=== PATIENT | male | born 1940 | race Caucasian/White ===

== ENCOUNTER → 2017-01-02 | Outpatient (CLI) | payer MEDICARE, OTHER ==
--- NOTE | 2017-01-02 11:22 | US ---
EXAMINATION TYPE: US carotid duplex BILAT DATE OF EXAM: 01/02/2017 COMPARISON: NONE CLINICAL HISTORY: Z86.73 HX STROKE,I65.22 LT ICA STENOSIS. History of stroke EXAM MEASUREMENTS: RIGHT: Peak Systolic Velocity (PSV) cm/sec ----- Right CCA: 82.9 ----- Right ICA: 92.1 ----- Right ECA: 101.8 ICA/CCA ratio: 1.1 RIGHT: End Diastole cm/sec ----- Right CCA: 26.0 ----- Right ICA: 31.5 ----- Right ECA: 18.9 LEFT: Peak Systolic Velocity (PSV) cm/sec ----- Left CCA: 95.5 ----- Left ICA: 74.4 ----- Left ECA: 126.4 ICA/CCA ratio: 0.8 LEFT: End Diastole cm/sec ----- Left CCA: 27.3 ----- Left ICA: 24.2 ----- Left ECA: 28.0 VERTEBRALS (direction of flow): Right Vertebral: Antegrade Left Vertebral: Antegrade IMPRESSION: Mild plaque bilateral bifurcations. No evidence of significant stenosis Criteria for Assigning % of Stenosis / Diameter reduction (Estimation based on the indirect measurements of the internal carotid artery velocities (ICA PSV). 1. Normal (no stenosis)=ICA PSV < 125 cm/s: ratio < 2.0: ICA EDV<40 cm/s. 2. Less than 50% stenosis=ICA PSV < 125 cm/s: ratio < 2.0: ICA EDV<40 cm/s. 3. 50 to 69% stenosis=ICA PSV of 125 to 230 cm/s: ration 2.0 ? 4.0: ICA EDV 40-100 cm/s. 4. Greater than 70% stenosis to near occlusion= ICA PSV > 230 cm/s: ratio > 4.0: ICA EDV > 100 cm/s. 5. Near occlusion= ICA PSV velocities may be low or undetectable: variable ratio and ICA EDV. 6. Total occlusion=unable to detect flow.
== END | disposition home or self-care (01) ==
LOC: RADUSWWP 10:33
PROVIDERS: ATTEND Psychiatry & Neurology Neurology
DX: I65.23 Occlusion and stenosis of bilateral carotid arteries (principal)
CPT/HCPCS: 93880

== ENCOUNTER 2017-10-13 14:06 | Emergency (ER) | payer MEDICARE, OTHER ==
--- NOTE | 2017-10-13 15:03 | ED ---
General Adult HPI - General Chief complaint: Extremity Injury, Lower Stated complaint: Fall/Leg Pain Time Seen by Provider: 10/13/17 14:51 Source: patient, RN notes reviewed Mode of arrival: ambulatory Limitations: no limitations - History of Present Illness Initial comments: Patient 76-year-old male presented to the emergency room today with chief complaint of increased swelling and redness to the left lower extremity. He doesn't some pain locally. Center is related to a fall that he had a few days ago when he fell forward and then had to crawl over to the wall to help pull himself up. He states he was outside with this fall. Patient does admit to some local tenderness it's worse on the medial aspect of the left lower leg. Patient's at bedside stating that there is some redness and some mild swelling to the right lower abdomen as well. Patient denies any other complaints or symptoms. Denies any increased shortness of breath. Denies any chest pain, back pain, abdominal pain, dysuria, hematuria, headache - Related Data Home Medications Medication Instructions Recorded Confirmed Aspirin 81 mg PO BID 11/06/13 10/13/17 Metoprolol Tartrate [Lopressor] 25 mg PO BID 11/06/13 10/13/17 Multivitamin [Men's Multi-Vitamin] 1 tab PO DAILY 11/06/13 10/13/17 Omeprazole [PriLOSEC] 20 mg PO DAILY 11/06/13 10/13/17 Ubidecarenone [Coq-10] 100 mg PO DAILY 11/06/13 10/13/17 Albuterol Sulfate [Proair Hfa] 1 - 2 puff INHALATION RT-QID PRN 10/13/17 Budesonide [Pulmicort] 0.5 mg INHALATION RT-BID 10/13/17 10/13/17 Felodipine ER [Plendil] 5 mg PO DAILY 10/13/17 10/13/17 Formoterol Fumarate [Perforomist] 20 mcg INHALATION RT-BID 10/13/17 10/13/17 Niacin 500 mg PO DAILY 10/13/17 10/13/17 Vitamin B Complex 1 cap PO DAILY 10/13/17 10/13/17 Previous Rx's Medication Instructions Recorded Cephalexin [Keflex] 500 mg PO Q12HR #20 cap 10/13/17 Allergies Allergy/AdvReac Type Severity Reaction Status Date / Time No Known Allergies Allergy Verified 10/13/17 15:20 Review of Systems ROS Statement: Those systems with pertinent positive or pertinent negative responses have been documented in the HPI. ROS Other: All systems not noted in ROS Statement are negative. Past Medical History Past Medical History: COPD, CVA/TIA, Hyperlipidemia, Hypertension Additional Past Medical History / Comment(s): SMALL AAA. History of Any Multi-Drug Resistant Organisms: None Reported Past Surgical History: Appendectomy, Tonsillectomy Past Anesthesia/Blood Transfusion Reactions: No Reported Reaction Past Psychological History: No Psychological Hx Reported Smoking Status: Former smoker Past Alcohol Use History: None Reported Past Drug Use History: None Reported General Exam - General Exam Comments Initial Comments: General: The patient is awake and alert, in no distress, and does not appear acutely ill. Eye: Pupils are equal, round and reactive to light, extra-ocular movements are intact. No nystagmus. There is normal conjunctiva bilaterally. No signs of icterus. Ears, nose, mouth and throat: There are moist mucous membranes and no oral lesions. Neck: The neck is supple, there is no tenderness or JVD. Cardiovascular: There is a regular rate and rhythm. No murmur, rub or gallop is appreciated. Respiratory: Lungs are clear to auscultation, respirations are non-labored, breath sounds are equal. No wheezes, stridor, rales, or rhonchi. Musculoskeletal: Normal ROM, no tenderness. Strength 5/5. Sensation intact. Pulses equal bilaterally 2+. Neurological: A&O x 3. CN II-XII intact, There are no obvious motor or sensory deficits. Coordination appears grossly intact. Speech is normal. Skin: Redness to the distal medial aspect of the left lower extremity. 2+ pitting. No lymphogenic streaking. There is increased warmth. Mild warmth and redness to the right lower extremity anteriorly. Psychiatric: Cooperative, appropriate mood & affect, normal judgment. Limitations: no limitations Course Vital Signs 10/13/17 14:39 Temperature 98.1 F Pulse Rate 86 Respiratory 20 Rate Blood Pressure 143/72 O2 Sat by Pulse 96 Oximetry Medical Decision Making - Medical Decision Making Patient reexamined at this time shows no signs of distress. Is also negative for any evidence of a DVT. His labs been reviewed and negative white count. Patient has no fever. Case was discussed and seen by physician Dr. Cerda. Patient will be started on antibiotics and advised follow-up family doctor over the next 2 days. Advised return if any symptoms increase worsen. Patient states understanding and is in agreement with the plan. - Lab Data Result diagrams: 10/13/17 15:17 10/13/17 15:17 Lab Results 10/13/17 10/13/17 10/13/17 Range/Units 15:17 15:17 15:17 WBC 4.6 (3.8-10.6) k/uL RBC 4.72 (4.30-5.90) m/uL Hgb 12.5 L (13.0-17.5) gm/dL Hct 38.1 L (39.0-53.0) % MCV 80.9 (80.0-100.0) fL MCH 26.4 (25.0-35.0) pg MCHC 32.7 (31.0-37.0) g/dL RDW 17.4 H (11.5-15.5) % Plt Count 257 (150-450) k/uL Neutrophils % 46 % Lymphocytes % 25 % Monocytes % 12 % Eosinophils % 12 % Basophils % 1 % Neutrophils # 2.1 (1.3-7.7) k/uL Lymphocytes # 1.1 (1.0-4.8) k/uL Monocytes # 0.6 (0-1.0) k/uL Eosinophils # 0.5 (0-0.7) k/uL Basophils # 0.1 (0-0.2) k/uL Hypochromasia Slight Poikilocytosis Slight Anisocytosis Slight Microcytosis Slight Sodium 142 (137-145) mmol/L Potassium 4.5 (3.5-5.1) mmol/L Chloride 106 (98-107) mmol/L Carbon Dioxide 23 (22-30) mmol/L Anion Gap 13 mmol/L BUN 16 (9-20) mg/dL Creatinine 0.67 (0.66-1.25) mg/dL Est GFR (CKD-EPI)AfAm >90 (>60 ml/min/1.73 sqM) Est GFR (CKD-EPI)NonAf >90 (>60 ml/min/1.73 sqM) Glucose 100 H (74-99) mg/dL Calcium 8.7 (8.4-10.2) mg/dL Total Bilirubin 1.1 (0.2-1.3) mg/dL AST 30 (17-59) U/L ALT 30 (21-72) U/L Alkaline Phosphatase 216 H (38-126) U/L NT-Pro-B Natriuret Pep 92 pg/mL Total Protein 7.3 (6.3-8.2) g/dL Albumin 3.9 (3.5-5.0) g/dL Disposition Clinical Impression: Cellulitis Disposition: HOME SELF-CARE Condition: Good Instructions: Cellulitis (ED) Additional Instructions: Please use antibiotic of Keflex and is been sent to pharmacy. Please follow-up with family doctor in the next 2 days of symptoms have not improved. Please return to emergency room if the symptoms increase or worsen or for any other concerns. Prescriptions: Cephalexin [Keflex] 500 mg PO Q12HR #20 cap Is patient prescribed a controlled substance at d/c from ED?: No Referrals: Kiya Espinoza MD [Primary Care Provider] - 1-2 days Time of Disposition: 16:41
[2017-10-13 15:34] LABS: Anisocytosis Slight; Basophils # (A) 0.1 k/uL (0-0.2); Basophils % (A) 1 %; Eosinophils # (A) 0.5 k/uL (0-0.7); Eosinophils % (A) 12 %; HCT 38.1 % (39.0-53.0); HGB 12.5 gm/dL (13.0-17.5); Hypochromasia Slight; Lymphocytes # (A) 1.1 k/uL (1.0-4.8); Lymphocytes % (A) 25 %; MCH 26.4 pg (25.0-35.0); MCHC 32.7 g/dL (31.0-37.0); MCV 80.9 fL (80.0-100.0); Mean Platelet Volume 7.3; Microcytosis Slight; Monocytes # (A) 0.6 k/uL (0-1.0); Monocytes % (A) 12 %; Neutrophils # (A) 2.1 k/uL (1.3-7.7); Neutrophils % (A) 46 %; Platelet Count 257 k/uL (150-450); Poikilocytosis Slight; RBC 4.72 m/uL (4.30-5.90); RDW 17.4 % (11.5-15.5); WBC 4.6 k/uL (3.8-10.6)
[2017-10-13 15:49] LABS: ALT 30 U/L (21-72); AST 30 U/L (17-59); Albumin 3.9 g/dL (3.5-5.0); Alkaline Phosphatase 216 U/L (38-126); Anion Gap 13 mmol/L; Blood Urea Nitrogen 16 mg/dL (9-20); Calcium 8.7 mg/dL (8.4-10.2); Carbon Dioxide 23 mmol/L (22-30); Chloride 106 mmol/L (98-107); Glucose 100 mg/dL (74-99); Potassium 4.5 mmol/L (3.5-5.1); Sodium 142 mmol/L (137-145); Total Bilirubin 1.1 mg/dL (0.2-1.3); Total Protein 7.3 g/dL (6.3-8.2)
--- NOTE | 2017-10-13 15:57 | US ---
EXAMINATION TYPE: US venous doppler duplex LE LT DATE OF EXAM: 10/13/2017 3:48 PM COMPARISON: NONE CLINICAL HISTORY: Pain; EC patient with skin redness bilateral anterior lower legs; patient fell 4 da ys ago SIDE PERFORMED: Left TECHNIQUE: The lower extremity deep venous system is examined utilizing real time linear array sonog alexy with graded compression, doppler sonography and color-flow sonography. VESSELS IMAGED: Common Femoral Vein Deep Femoral Vein Greater Saphenous Vein * Femoral Vein Popliteal Vein Small Saphenous Vein * Proximal Calf Veins (* superficial vessels) Left Leg: Negative for DVT. Edema channels are noted in anterior skin at ankle level. Grayscale, color doppler, spectral doppler imaging performed of the deep veins of the lower extremiti es. There is normal flow, compressibility, vascular waveforms. IMPRESSION: No evident deep venous thrombosis at or above the left knee. Soft tissue swelling. Alfredo elate to exclude cellulitis.
[2017-10-13 17:00] VITALS: BP 149/70; PULSE 83; RESP 18; TEMP 97.3
== END 2017-10-13 16:55 | disposition home or self-care (01) ==
LOC: EC 14:06
DX: L03.116 Cellulitis of left lower limb (principal); L03.115 Cellulitis of right lower limb; R19.03 Right lower quadrant abdominal swelling, mass and lump; M79.662 Pain in left lower leg; J44.9 Chronic obstructive pulmonary disease, unspecified; I10 Essential (primary) hypertension; Z86.73 Personal history of transient ischemic attack (TIA), and cerebral infarction without residual deficits; Z90.49 Acquired absence of other specified parts of digestive tract; Z87.891 Personal history of nicotine dependence; Z79.82 Long term (current) use of aspirin; Z79.51 Long term (current) use of inhaled steroids; Z79.899 Other long term (current) drug therapy; W19.XXXA Unspecified fall, initial encounter
CPT/HCPCS: 36415; 80053; 83880; 85025; 87040; 99284

== ENCOUNTER 2018-01-20 08:57 | Inpatient (IN) | payer MEDICARE, OTHER ==
[2018-01-20] MEDS ORDERED: SODIUM CHLORIDE 0.9% 1,000 ML IV STA (09:21)
--- NOTE | 2018-01-20 09:26 | ED ---
General Adult HPI - General Chief complaint: Weakness Stated complaint: WEAKNESS, POSS DEHYDRATION Source: patient Mode of arrival: EMS Limitations: no limitations - History of Present Illness Initial comments: Dictation was produced using [employer] dictation software. please excuse any grammatical, word or spelling errors. Chief Complaint: 77-year-old male presents with generalized weakness. He has had a recent history of persistent diarrhea and dehydration. History of Present Illness: Patient is a 77-year-old male past medical history of COPD, CVA, TIA, abdominal aortic aneurysm presents with generalized weakness. Patient states that he was recently seen at [facility]. He has been in and out of the emergency room for dehydration. Patient states that early this morning he became weak. He lives at home with his . Patient himself to the ground and was not able to get up. EMS was called by patient's . Patient needed assistance to be placed onto the stretcher. Patient has been having persistent diarrhea ongoing for the last several weeks. He has a scheduled colonoscopy. The ROS documented in this emergency department record has been reviewed and confirmed by me. Those systems with pertinent positive or negative responses have been documented in the HPI. All other systems are other negative and/or noncontributory. - Related Data Home Medications Medication Instructions Recorded Confirmed Aspirin 81 mg PO BID 11/06/13 01/20/18 Metoprolol Tartrate [Lopressor] 25 mg PO BID 11/06/13 01/20/18 Multivitamin [Men's Multi-Vitamin] 1 tab PO DAILY 11/06/13 01/20/18 Omeprazole [PriLOSEC] 20 mg PO DAILY 11/06/13 01/20/18 Ubidecarenone [Coq-10] 100 mg PO DAILY 11/06/13 01/20/18 Albuterol Sulfate [Proair Hfa] 2 puff INHALATION RT-QID PRN 10/13/17 01/20/18 Felodipine ER [Plendil] 5 mg PO DAILY 10/13/17 01/20/18 Niacin 500 mg PO DAILY 10/13/17 01/20/18 Cholecalciferol (Vitamin D3) 2,000 unit PO DAILY 01/20/18 01/20/18 [Vitamin D3] Cholestyramine (with Sugar) 4 gm PO DAILY 01/20/18 01/20/18 [Questran Packet] Glycopyrrolate/Formoterol Fum 2 puff INHALATION RT-BID 01/20/18 01/20/18 [Bevespi Aerosphere Inhaler] Pravastatin Sodium [Pravachol] 40 mg PO HS 01/20/18 01/20/18 Triamterene-Hctz 37.5-25Mg 1 cap PO DAILY 01/20/18 01/20/18 [Dyazide 37.5-25 Capsule] Allergies Allergy/AdvReac Type Severity Reaction Status Date / Time No Known Allergies Allergy Verified 01/20/18 09:09 Review of Systems ROS Statement: Those systems with pertinent positive or pertinent negative responses have been documented in the HPI. ROS Other: All systems not noted in ROS Statement are negative. Past Medical History Past Medical History: COPD, CVA/TIA, Hyperlipidemia, Hypertension Additional Past Medical History / Comment(s): SMALL AAA. History of Any Multi-Drug Resistant Organisms: None Reported Past Surgical History: Appendectomy, Tonsillectomy Past Anesthesia/Blood Transfusion Reactions: No Reported Reaction Past Psychological History: No Psychological Hx Reported Smoking Status: Former smoker Past Alcohol Use History: None Reported Past Drug Use History: None Reported General Exam - General Exam Comments Initial Comments: PHYSICAL EXAM: General Impression: Alert and oriented x3, not in acute distress HEENT: Normocephalic atraumatic, extra-ocular movements intact, pupils equal and reactive to light bilaterally, dry mucous members Cardiovascular: Heart regular rate and rhythm, S1&S2 audible, no murmurs, rubs or gallops Chest: Lungs clear to auscultation bilaterally, no rhonchi, no wheeze, no rales Abdomen: Bowel sounds present, abdomen soft, non-tender, non-distended, no organomegaly Musculoskeletal: Pulses present and equal in all extremities, no peripheral edema Motor: Power 5/5 bilaterally, no focal deficits noted Neurological: CN II-XII grossly intact, no focal motor or sensory deficits noted Skin: Intact with no visualized rashes Psych: Normal affect and mood Limitations: no limitations Course Vital Signs 01/20/18 01/20/18 09:01 11:38 Temperature 97.9 F Pulse Rate 104 H 96 Respiratory 18 16 Rate Blood Pressure 122/56 118/56 O2 Sat by Pulse 98 98 Oximetry Medical Decision Making - Medical Decision Making ED course: Ciy-[id number]-krp male presents with generalized weakness and persistent diarrhea. Vital signs upon arrival shows tachycardia in the 100s. Patient is otherwise hemodynamically stable.Laboratory evaluation obtained. Leukocytosis of 16.6. Hemoglobin of 6.0. Coag panel shows INR 1.7. Known thrombocytopenia. Metabolic panel is unremarkable. Troponin is 0.084. Stool occult blood is positive. Chest x-ray shows no acute processes. At this point patient has GI bleed with likely possible intra-abdominal infection. Patient covered with antibiotics. Pending CT abdomen and pelvis. Patient's abdomen is nontender. Patient given PRBCs for hemoglobin less than 7. Given intravenous fluids for tachycardia. At this point we will hold heparin given that patient has GI bleed. No clear indication for admission patient of FFP or platelets. Patient be admitted with GI consult. EKGs benign - Lab Data Result diagrams: 01/20/18 10:03 01/20/18 10:03 Lab Results 01/20/18 01/20/18 01/20/18 Range/Units 10:00 10:03 10:03 WBC 16.6 H (3.8-10.6) k/uL RBC 2.27 L (4.30-5.90) m/uL Hgb 6.0 L* (13.0-17.5) gm/dL Hct 19.5 L* (39.0-53.0) % MCV 86.1 (80.0-100.0) fL MCH 26.6 (25.0-35.0) pg MCHC 30.9 L (31.0-37.0) g/dL RDW 21.0 H (11.5-15.5) % Plt Count 273 (150-450) k/uL Neutrophils % (Manual) 86 % Lymphocytes % (Manual) 3 % Monocytes % (Manual) 7 % Eosinophils % (Manual) 4 % Basophils % (Manual) 1 % Metamyelocytes % 1 % Neutrophils # (Manual) 14.28 H (1.3-7.7) k/uL Lymphocytes # (Manual) 0.50 L (1.0-4.8) k/uL Monocytes # (Manual) 1.16 H (0-1.0) k/uL Eosinophils # (Manual) 0.66 (0-0.7) k/uL Basophils # (Manual) 0.17 (0-0.2) k/uL Metamyelocytes # (Man) 0.17 H (0) k/uL Nucleated RBCs 0 (0-0) /100 WBC Hypersegmented Neuts Present Dimorphic RBCs Present Polychromasia Present Hypochromasia Marked Poikilocytosis Slight Anisocytosis Moderate Spherocytes Present PT (9.0-12.0) sec INR (<1.2) APTT (22.0-30.0) sec Sodium (137-145) mmol/L Potassium (3.5-5.1) mmol/L Chloride (98-107) mmol/L Carbon Dioxide (22-30) mmol/L Anion Gap mmol/L BUN (9-20) mg/dL Creatinine (0.66-1.25) mg/dL Est GFR (CKD-EPI)AfAm (>60 ml/min/1.73 sqM) Est GFR (CKD-EPI)NonAf (>60 ml/min/1.73 sqM) Glucose (74-99) mg/dL Plasma Lactic Acid Pete (0.7-2.0) mmol/L Calcium (8.4-10.2) mg/dL Total Bilirubin (0.2-1.3) mg/dL AST (17-59) U/L ALT (21-72) U/L Alkaline Phosphatase (38-126) U/L Total Creatine Kinase 141 (55-170) U/L CK-MB (CK-2) 1.0 (0.0-2.4) ng/mL CK-MB (CK-2) Rel Index 0.7 Troponin I 0.084 H* (0.000-0.034) ng/mL NT-Pro-B Natriuret Pep pg/mL Total Protein (6.3-8.2) g/dL Albumin (3.5-5.0) g/dL Stool Occult Blood Positive (Negative) 01/20/18 01/20/18 01/20/18 Range/Units 10:03 10:03 10:03 WBC (3.8-10.6) k/uL RBC (4.30-5.90) m/uL Hgb (13.0-17.5) gm/dL Hct (39.0-53.0) % MCV (80.0-100.0) fL MCH (25.0-35.0) pg MCHC (31.0-37.0) g/dL RDW (11.5-15.5) % Plt Count (150-450) k/uL Neutrophils % (Manual) % Lymphocytes % (Manual) % Monocytes % (Manual) % Eosinophils % (Manual) % Basophils % (Manual) % Metamyelocytes % % Neutrophils # (Manual) (1.3-7.7) k/uL Lymphocytes # (Manual) (1.0-4.8) k/uL Monocytes # (Manual) (0-1.0) k/uL Eosinophils # (Manual) (0-0.7) k/uL Basophils # (Manual) (0-0.2) k/uL Metamyelocytes # (Man) (0) k/uL Nucleated RBCs (0-0) /100 WBC Hypersegmented Neuts Dimorphic RBCs Polychromasia Hypochromasia Poikilocytosis Anisocytosis Spherocytes PT (9.0-12.0) sec INR (<1.2) APTT (22.0-30.0) sec Sodium 137 (137-145) mmol/L Potassium 3.4 L (3.5-5.1) mmol/L Chloride 105 (98-107) mmol/L Carbon Dioxide 23 (22-30) mmol/L Anion Gap 9 mmol/L BUN 20 (9-20) mg/dL Creatinine 0.86 (0.66-1.25) mg/dL Est GFR (CKD-EPI)AfAm >90 (>60 ml/min/1.73 sqM) Est GFR (CKD-EPI)NonAf 84 (>60 ml/min/1.73 sqM) Glucose 107 H (74-99) mg/dL Plasma Lactic Acid Pete 1.1 (0.7-2.0) mmol/L Calcium 8.1 L (8.4-10.2) mg/dL Total Bilirubin 1.0 (0.2-1.3) mg/dL AST 24 (17-59) U/L ALT 31 (21-72) U/L Alkaline Phosphatase 295 H (38-126) U/L Total Creatine Kinase (55-170) U/L CK-MB (CK-2) (0.0-2.4) ng/mL CK-MB (CK-2) Rel Index Troponin I (0.000-0.034) ng/mL NT-Pro-B Natriuret Pep 2860 pg/mL Total Protein 6.3 (6.3-8.2) g/dL Albumin 2.5 L (3.5-5.0) g/dL Stool Occult Blood (Negative) 01/20/18 Range/Units 10:03 WBC (3.8-10.6) k/uL RBC (4.30-5.90) m/uL Hgb (13.0-17.5) gm/dL Hct (39.0-53.0) % MCV (80.0-100.0) fL MCH (25.0-35.0) pg MCHC (31.0-37.0) g/dL RDW (11.5-15.5) % Plt Count (150-450) k/uL Neutrophils % (Manual) % Lymphocytes % (Manual) % Monocytes % (Manual) % Eosinophils % (Manual) % Basophils % (Manual) % Metamyelocytes % % Neutrophils # (Manual) (1.3-7.7) k/uL Lymphocytes # (Manual) (1.0-4.8) k/uL Monocytes # (Manual) (0-1.0) k/uL Eosinophils # (Manual) (0-0.7) k/uL Basophils # (Manual) (0-0.2) k/uL Metamyelocytes # (Man) (0) k/uL Nucleated RBCs (0-0) /100 WBC Hypersegmented Neuts Dimorphic RBCs Polychromasia Hypochromasia Poikilocytosis Anisocytosis Spherocytes PT 15.5 H (9.0-12.0) sec INR 1.7 H (<1.2) APTT 25.4 (22.0-30.0) sec Sodium (137-145) mmol/L Potassium (3.5-5.1) mmol/L Chloride (98-107) mmol/L Carbon Dioxide (22-30) mmol/L Anion Gap mmol/L BUN (9-20) mg/dL Creatinine (0.66-1.25) mg/dL Est GFR (CKD-EPI)AfAm (>60 ml/min/1.73 sqM) Est GFR (CKD-EPI)NonAf (>60 ml/min/1.73 sqM) Glucose (74-99) mg/dL Plasma Lactic Acid Pete (0.7-2.0) mmol/L Calcium (8.4-10.2) mg/dL Total Bilirubin (0.2-1.3) mg/dL AST (17-59) U/L ALT (21-72) U/L Alkaline Phosphatase (38-126) U/L Total Creatine Kinase (55-170) U/L CK-MB (CK-2) (0.0-2.4) ng/mL CK-MB (CK-2) Rel Index Troponin I (0.000-0.034) ng/mL NT-Pro-B Natriuret Pep pg/mL Total Protein (6.3-8.2) g/dL Albumin (3.5-5.0) g/dL Stool Occult Blood (Negative) Disposition Clinical Impression: Sepsis, Anemia Disposition: ADMITTED IP TO THIS HOSP Condition: Fair Referrals: Kiya Espinoza MD [Primary Care Provider] - 1-2 days Decision Time: 12:00
[2018-01-20 10:19] LABS: Anisocytosis Moderate; Hypochromasia Marked; MCH 26.6 pg (25.0-35.0); MCHC 30.9 g/dL (31.0-37.0); MCV 86.1 fL (80.0-100.0); Mean Platelet Volume 7.6; Platelet Count 273 k/uL (150-450); Poikilocytosis Slight; RBC 2.27 m/uL (4.30-5.90); WBC 16.6 k/uL (3.8-10.6)
[2018-01-20 10:26] LABS: HCT 19.5 % (39.0-53.0)
[2018-01-20 10:30] LABS: INR 1.7 (<1.2); Partial Thromboplastin Time 25.4 sec (22.0-30.0); Prothrombin Time 15.5 sec (9.0-12.0)
[2018-01-20 10:33] LABS: ALT 31 U/L (21-72); AST 24 U/L (17-59); Albumin 2.5 g/dL (3.5-5.0); Alkaline Phosphatase 295 U/L (38-126); Anion Gap 9 mmol/L; Blood Urea Nitrogen 20 mg/dL (9-20); Calcium 8.1 mg/dL (8.4-10.2); Carbon Dioxide 23 mmol/L (22-30); Chloride 105 mmol/L (98-107); Glucose 107 mg/dL (74-99); Potassium 3.4 mmol/L (3.5-5.1); Sodium 137 mmol/L (137-145); Total Protein 6.3 g/dL (6.3-8.2)
[2018-01-20 11:04] LABS: Basophils # (M) 0.17 k/uL (0-0.2); Eosinophils # (M) 0.66 k/uL (0-0.7); Metamyelocytes # (M) 0.17 k/uL (0); Metamyelocytes % 1 %; Monocytes # (M) 1.16 k/uL (0-1.0); Neutrophils # (M) 14.28 k/uL (1.3-7.7); Neutrophils % (M) 86 %; Nucleated Red Blood Cells 0 /100 WBC (0-0); Total Cells Counted 200
[2018-01-20 11:05] LABS: Troponin I 0.084 ng/mL (0.000-0.034)
[2018-01-20 11:06] LABS: Hypersegmented Neutrophils Present; Mixed Population RBC Present; Polychromasia Present
[2018-01-20 11:07] LABS: Spherocytes Present
--- NOTE | 2018-01-20 11:10 | XR ---
EXAMINATION TYPE: XR chest 2V DATE OF EXAM: 01/20/2018 COMPARISON: 09/03/2016 HISTORY: 77-year-old male with weakness TECHNIQUE: AP and lateral views FINDINGS: Heart limits of normal in size. Aorta within normal limits. Mild interstitial prominence is unchanged . No consolidation or pleural effusion is seen. There are hazy peripheral lower lung densities felt t o relate to overlying soft tissue. IMPRESSION: Interstitial prominence may reflect bronchitis or chronic asthma. There are hazy densities suspected to relate to overlying soft tissue density. No definite acute process.
[2018-01-20] MEDS: cefTRIAXone IN SWFI 1,000 MG/10 ML SYRINGE IVP STA ×2 (11:48→15:13)
[2018-01-20] MEDS: metroNIDAZOLE-NS PMX 500 MG in SALINE 1 100ML.BAG IVPB STA ×2 (11:49→15:13)
[2018-01-20] MEDS ORDERED: NALOXONE 0.4 MG/ML 1 ML VIAL IV PRN (11:55)
[2018-01-20] MEDS ORDERED: PANTOPRAZOLE 40 MG/10 ML VIAL IVP STA (11:56)
--- NOTE | 2018-01-20 13:19 | CT ---
EXAMINATION TYPE: CT abdomen pelvis w con DATE OF EXAM: 01/20/2018 COMPARISON: None HISTORY: diarrhea x [address] DLP: 2015 mGycm CONTRAST: CT scan of the abdomen and pelvis is performed without Oral Contrast and with IV Contrast, patient in jected with 100 mL of Isovue 300. FINDINGS: LUNG BASES-: No visible nodule. No infiltrate. Small right-sided pleural effusion. LIVER/GB: 1.6 cm calculus in the region of the gallbladder neck. No gallbladder wall thickening malini reciated at this time. Small cyst posterior segment right hepatic lobe. Biliary tree is of normal tito iber. PANCREAS: No inflammation. No distinct mass. SPLEEN: Splenomegaly with craniocaudal measurement of 15.1 cm. No lesion seen. ADRENALS: No nodule. No thickening. KIDNEYS/BLADDER: No hydronephrosis. No nephrolithiasis. No distinct renal mass. Urinary bladder g rossly unremarkable. BOWEL: Normal appendix. Mild inflammatory change suggested involving the sigmoid colon which may refl ect mild diverticulitis. No evidence for perforation or abscess. Fluid contents throughout the colon. GENITAL ORGANS: No gross abnormality. LYMPH NODES: No greater than 1cm abdominal or pelvic lymph nodes are appreciated. AORTA: No significant abnormality. OSSEOUS STRUCTURES: Osteosclerosis noted with areas of lucent lesions seen. Metastatic disease to the lumbar spine, thoracic spine as well as pelvis difficult to exclude. OTHER: Fat-containing umbilical hernia noted. IMPRESSION: 1. Mild inflammatory change about the sigmoid colon may reflect mild diverticulitis or colitis. Corre late clinically. 2. Metastatic disease to the bone is difficult to exclude as noted above.
[2018-01-20 17:26] LABS: Appearance,Urine Cloudy (Clear); Bacteria,Urine Many /hpf; Bilirubin,Urine Negative (Negative); Blood,Urine Negative (Negative); Color,Urine Yellow; Glucose,Urine (UA) Negative (Negative); Granular Casts,Urine 3 /lpf (0); Hyaline Casts,Urine 7 /lpf (0-2); Ketones,Urine Negative (Negative); Leukocyte Esterase,Urine Large (Negative); Mucus,Urine Rare /hpf; Nitrite,Urine Positive (Negative); Protein,Urine 1+ (Negative); RBC,Urine 4 /hpf (0-5); Squamous Epithelial Cell,Urine 1 /hpf (0-4); Urobilinogen,Urine <2.0 mg/dL (<2.0); WBC,Urine 88 /hpf (0-5)
[2018-01-20] MEDS ORDERED: ALBUTEROL NEBULIZED 2.5 MG/3 ML INHALATION PRN (18:03)
[2018-01-20] MEDS ORDERED: HYDROcodone/APAP 5-325MG 1 EACH TAB PO PRN (18:05)
[2018-01-20] MEDS: IPRATROPIUM 0.5 MG/2.5 ML NEBU INHALATION SCH (19:39)
[2018-01-20] MEDS: FORMOTEROL FUMARATE 20 MCG/2 ML NEBU INHALATION SCH (19:39)
[2018-01-20] MEDS: PIPERACILLIN-TAZOBACTAM 3.375 GM in DEXTROSE/WATER 1 50ML.BAG IVPB SCH (19:57)
[2018-01-20] MEDS: METOPROLOL TARTRATE 25 MG TAB PO SCH (20:04)
[2018-01-20] MEDS: HEPARIN SODIUM,PORCINE 5,000 UNIT/ML 1 ML VIAL SQ SCH (20:04)
[2018-01-20] MEDS ORDERED: PHYTONADIONE ORAL 5 MG/5 ML ORAL.SYRG PO STA (21:03)
--- NOTE | 2018-01-20 21:46 | HP ---
HISTORY AND PHYSICAL CHIEF COMPLAINT: Generalized weakness and dehydration and anemia. HISTORY OF PRESENT ILLNESS: This 77-year-old gentleman with a past medical history of multiple medical problems, including COPD, history of CVA, TIA, hypertension, hyperlipidemia, history of pneumonia, small abdominal aortic aneurysm, being for Dr. Espinoza in the outpatient setting, was complaining of severe weakness. Patient has had diarrhea for the last several days. Patient also had a black tarry stool. The patient also had history of abdominal aortic aneurysm. The patient was recently admitted to [facility]. Patient came to [facility] and was noted to have hemoglobin of 6 and WBC of 16.6. Patient admitted for further evaluation and treatment. The patient is slated to have outpatient endoscopy with Dr. Roy. There is no history of any fever, rigors. No history of headache, loss consciousness, seizure. Troponin is indeterminate at 0.084. PAST MEDICAL HISTORY: History of COPD, CVA, TIA, hypertension, hyperlipidemia, history of pneumonia, abdominal aortic aneurysm. MEDICATIONS PRIOR TO ADMISSION: Include: 1. Coenzyme Q 100 mg p.o. daily. 2. Dyazide 37.5 mg 1 p.o. daily. 3. Pravachol 40 mg. 4. Prilosec 20 mg. 5. Niacin 500 mg p.o. daily. 6. Multivitamins. 7. Lopressor 25 mg p.o. b.i.d. 8. Glycopyrrolate 2 puffs b.i.d. 9. Plendil 5 mg p.o. daily. 10.Questran 4 g p.o. daily. 11.Vitamin D3 2000 daily. 12.Aspirin 81 mg b.i.d. 13.ProAir HFA 2 puffs q.i.d. p.r.n. ALLERGIES: None. FAMILY HISTORY: No history of heart disease, strokes in the family. SOCIAL HISTORY: Previous history of smoking. No history of current smoking or alcohol intake. REVIEW OF SYSTEMS: ENT: Diminished hearing, diminished vision. CARDIOVASCULAR: As mentioned earlier. RESPIRATORY: As mentioned earlier. GI: As mentioned earlier. : No dysuria. NERVOUS: No numbness or weakness. ALLERGY/IMMUNOLOGY: No asthma or hay fever. MUSCULOSKELETAL: As mentioned earlier. HEMATOLOGY/ONCOLOGY: No history of anemia. ENDOCRINE: No history of diabetes, hypothyroidism. CONSTITUTIONAL: As mentioned earlier. DERMATOLOGY: Negative. RHEUMATOLOGY: Negative. PSYCHIATRY: As mentioned earlier. PHYSICAL EXAMINATION: Alert, oriented x3. Pulse is 103. Blood pressure 107/55, respirations 16, temperature is 96.8, pulse ox 96% on 3L. HEENT: Conjunctivae pale. Oral mucosa pale. NECK: No jugular venous distention. No carotid bruits. No lymph node enlargement. CARDIOVASCULAR: S1, S2 muffled. No S3, S4. Ejection systolic murmur. RESPIRATORY: Breath sounds diminished in the bases. A few scattered rhonchi and crackles. ABDOMEN: Soft, obese, nontender. No mass palpable. LEGS: No edema. No swelling. NERVOUS SYSTEM: Higher functions as mentioned earlier. Moves all 4 limbs. Mild diffuse weakness. LYMPHATIC: No lymphadenopathy in neck or axillae. SKIN: No ulcer, rash or bleeding. JOINTS: No active deforming arthropathy. LAB STUDIES: At this time show WBC 16.6, hemoglobin is 6 and the platelets are 0.17, monocytes are 0.16. The platelets are 273. INR is 1.7 and potassium 3.4. Troponin 0.084. UA noted. ASSESSMENT: 1. Severe weakness, possibly anemia with upper gastrointestinal bleeding with acute blood loss anemia. 2. Urinary tract infection with sepsis. 3. Severe dehydration. 4. Increased WBC. 5. Coagulopathy. 6. Troponin 0.085, indeterminate. 7. Urinary tract infection. 8. History of abdominal aortic aneurysm. 9. History of chronic obstructive pulmonary disease. 10.Hypertension. 11.Hyperlipidemia. 12.History of pneumonia. 13.History of cerebrovascular incident. 14.Gait dysfunction. 15.History of obstructive sleep apnea. 16.Obesity with body mass index 41.8. RECOMMENDATIONS AND DISCUSSION: In this 77-year-old gentleman who presented with multiple complex medical issues , at this time I recommend to continue current medical management and symptomatic treatment. Otherwise, I recommend stop aspirin, gastroenterology consultation, vascular surgery consultation, monitor hemoglobin closely. The patient was given 2 units transfusion, will be given 2 units transfusion. Monitor hemoglobin closely. Otherwise, continue the rest of the medications. Broad-spectrum IV antibiotic has also been initiated for possible sepsis. Otherwise, continue to monitor. See orders for details. Further recommendations to follow. A copy of this dictation will be forwarded to Dr. Espinoza, who is the primary physician. MMODL / IJN: [id number] / SHAUND
[2018-01-21] MEDS: PIPERACILLIN-TAZOBACTAM 3.375 GM in DEXTROSE/WATER 1 50ML.BAG IVPB SCH ×4 (00:24→22:58)
[2018-01-21 07:15] LABS: ALT 32 U/L (21-72); AST 30 U/L (17-59); Albumin 2.4 g/dL (3.5-5.0); Alkaline Phosphatase 240 U/L (38-126); Anion Gap 9 mmol/L; Blood Urea Nitrogen 18 mg/dL (9-20); Calcium 7.9 mg/dL (8.4-10.2); Carbon Dioxide 21 mmol/L (22-30); Chloride 109 mmol/L (98-107); Glucose 92 mg/dL (74-99); INR 1.5 (<1.2); Potassium 3.4 mmol/L (3.5-5.1); Prothrombin Time 13.6 sec (9.0-12.0); Sodium 139 mmol/L (137-145); Total Bilirubin 1.5 mg/dL (0.2-1.3)
[2018-01-21 07:16] LABS: Anisocytosis Moderate; Basophils # (A) 0.1 k/uL (0-0.2); Basophils % (A) 1 %; Eosinophils # (A) 0.8 k/uL (0-0.7); Eosinophils % (A) 7 %; HCT 23.8 % (39.0-53.0); Hypochromasia Marked; Lymphocytes # (A) 1.2 k/uL (1.0-4.8); Lymphocytes % (A) 11 %; MCH 27.7 pg (25.0-35.0); MCHC 31.4 g/dL (31.0-37.0); MCV 88.3 fL (80.0-100.0); Mean Platelet Volume 7.5; Monocytes # (A) 1.1 k/uL (0-1.0); Monocytes % (A) 9 %; Neutrophils # (A) 8.2 k/uL (1.3-7.7); Neutrophils % (A) 70 %; Platelet Count 276 k/uL (150-450); Poikilocytosis Moderate; RDW 21.2 % (11.5-15.5); WBC 11.7 k/uL (3.8-10.6)
[2018-01-21 07:19] LABS: HGB 7.5 gm/dL (13.0-17.5)
[2018-01-21] MEDS ORDERED: PANTOPRAZOLE 40 MG/10 ML VIAL IVP SCH (09:00)
[2018-01-21] MEDS: FORMOTEROL FUMARATE 20 MCG/2 ML NEBU INHALATION SCH ×2 (09:23→19:46)
[2018-01-21] MEDS: IPRATROPIUM 0.5 MG/2.5 ML NEBU INHALATION SCH ×4 (09:23→19:46)
--- NOTE | 2018-01-21 10:10 | P.CONS ---
History of Present Illness - Reason for Consult Consult date: 01/21/18 GI bleed Requesting physician: Gunjan Betts - Chief Complaint weakness dark colored bowel movements - History of Present Illness 77-year-old gentleman patient of Dr. Espinoza with a past history of skin carcinoma , CVA/TIA, AAA, COPD; CPAP, hypertension, and hyperlipidemia. Patient has been experiencing chronic nonbloody diarrhea with mild abdominal discomfort for more than a month as well as an unintentional weight loss of 40 pounds decreased appetite since November. He was seen in the GI office recently regarding these symptoms. Scheduled for EGD colonoscopy in the outpatient setting with Dr. Roy 01/22/2018. Yesterday patient had increased weakness fatigue passed a very large black colored liquid bowel movement. Denies significant abdominal pain. Denies hematemesis or hematochezia. No fever or chills. No history of GI bleeds. No history of peptic ulcer. Remote EGD more than 5 years and last colonoscopy to his memory 3 years ago at [facility] in [place] performed by Dr. Stone and to his memory was within normal limits. No history of EtOH excess of aspirin or NSAID usage. He was placed on some sort of anticoagulant that he cannot recall recently secondary to his CVA but was discontinued prior to admission. Home medications include but not limited to Prilosec 20 mg daily, Questran 4 mg daily, aspirin 81 mg twice daily as well as Plendil 5 mg daily. Admission hemoglobin 6. MCV 86. Platelet 273. Previous hemoglobin October was 12.5. Received 2 units of blood current hemoglobin 7.5. Admission INR 1.7 received vitamin K presently 1.5. Stool occult blood positive. BUN 20. Creatinine 0.8. LFTs within normal limits except alk phos 295. Troponin 0.08. Clostridium difficile EIA negative. Additional stool studies including lactoferrin, ova parasites giardia negative in 01/05/2018. Urinalysis large leukocyte esterase many bacteria and positive nitrite. CT abdomen and pelvis mild inflammatory changes around the sigmoid colon may reflect mild diverticulosis colitis. Metastatic disease to the bone is difficult to exclude secondary to osteosclerosis noted with areas of lucent lesions seen. Review of Systems Constitutional: Denies fever, chills, sweats, weight gain, reported 40 pound unintentional weight loss 2 months. HEENT: Negative for migraines, blurred vision or loss, earaches, drainage, tinnitus, oral mucosal lesions, dysphagia, or odynophagia. Cardiac: Negative for chest pain, arrhythmias, or palpitation. Respiratory: Negative for shortness of breath, hemoptysis, cough, or sputum production. Gastrointestinal: See HPI for pertinent findings. Genitourinary: Negative for hematuria, urgency, frequency, polyuria, dysuria, or penile discharge. Musculoskeletal: Negative for muscle aches, swelling, arthritis, and arthralgias. Neurologic: Street CVA. Endocrine: Negative for thyroid problems. Skin: Negative for rash or itching. Psychiatric: Negative history for depression and anxiety Past Medical History Past Medical History: Cancer, COPD, CVA/TIA, Hyperlipidemia, Hypertension, Pneumonia Additional Past Medical History / Comment(s): SMALL AAA, TIA, CVA and has had vertigo/difficulty ambulating, difficulty writing and decreased hearing with R ear since, CATE with Cpap use, skin cancer with removal. History of Any Multi-Drug Resistant Organisms: None Reported Past Surgical History: Appendectomy, Tonsillectomy Additional Past Surgical History / Comment(s): Skin cancer removal, colonoscopy Past Anesthesia/Blood Transfusion Reactions: No Reported Reaction Smoking Status: Former smoker - Past Family History Father Family Medical History: No Reported History Mother Family Medical History: Osteoarthritis (OA) Medications and Allergies Home Medications Medication Instructions Recorded Confirmed Type Aspirin 81 mg PO BID 11/06/13 01/20/18 History Metoprolol Tartrate [Lopressor] 25 mg PO BID 11/06/13 01/20/18 History Multivitamin [Men's Multi-Vitamin] 1 tab PO DAILY 11/06/13 01/20/18 History Omeprazole [PriLOSEC] 20 mg PO DAILY 11/06/13 01/20/18 History Ubidecarenone [Coq-10] 100 mg PO DAILY 11/06/13 01/20/18 History Albuterol Sulfate [Proair Hfa] 2 puff INHALATION RT-QID PRN 10/13/17 01/20/18 History Felodipine ER [Plendil] 5 mg PO DAILY 10/13/17 01/20/18 History Niacin 500 mg PO DAILY 10/13/17 01/20/18 History Cholecalciferol (Vitamin D3) 2,000 unit PO DAILY 01/20/18 01/20/18 History [Vitamin D3] Cholestyramine (with Sugar) 4 gm PO DAILY 01/20/18 01/20/18 History [Questran Packet] Glycopyrrolate/Formoterol Fum 2 puff INHALATION RT-BID 01/20/18 01/20/18 History [Bevespi Aerosphere Inhaler] Pravastatin Sodium [Pravachol] 40 mg PO HS 01/20/18 01/20/18 History Triamterene-Hctz 37.5-25Mg 1 cap PO DAILY 01/20/18 01/20/18 History [Dyazide 37.5-25 Capsule] Allergies Allergy/AdvReac Type Severity Reaction Status Date / Time No Known Allergies Allergy Verified 01/20/18 09:09 Physical Exam Vitals: Vital Signs Temp Pulse Pulse Resp BP BP Pulse Ox 01/21/18 09:44 104 H 01/21/18 09:36 104 H 01/21/18 09:23 104 H 01/21/18 07:35 94 18 01/21/18 07:32 98.2 F 94 20 106/54 96 01/21/18 04:00 96.4 F L 94 19 111/55 93 L 01/21/18 00:24 97.0 F L 90 19 103/59 95 01/21/18 00:00 97.0 F L 90 19 103/59 95 01/20/18 21:55 96.4 F L 87 19 97/64 100 01/20/18 21:25 96.2 F L 84 19 98/55 98 01/20/18 21:15 97.0 F L 83 19 97/56 95 01/20/18 20:00 96.8 F L 101 H 101 H 19 107/55 107/55 96 01/20/18 19:53 103 H 16 01/20/18 19:41 105 H 16 01/20/18 17:56 98.7 F 100 16 111/58 98 01/20/18 17:38 97.5 F L 103 H 16 113/59 97 01/20/18 17:28 97.0 F L 105 H 16 115/56 97 01/20/18 16:00 97.0 F L 105 H 16 115/56 97 01/20/18 15:55 98.2 F 101 H 18 112/56 97 01/20/18 13:30 97.1 F L 103 H 18 122/60 100 01/20/18 13:18 97.9 F 96 16 118/56 98 01/20/18 11:38 96 16 118/56 98 Intake and Output 01/20/18 01/21/18 01/21/18 22:59 06:59 14:59 Intake Total 310 1030 0 Output Total 475 Balance -165 1030 0 Intake: Intake, IV Titration 100 Amount Piperacillin-Tazobactam 3 100 .375 gm In Dextrose/Water 1 50ml.bag @ 12.5 mls/hr IVPB Q8HR [facility] Rx#: [id number] Oral 0 0 Blood Product 310 930 Rc As-1 Unit 0 310 [id number] Rc Cpda-1 Unit 310 [id number] Output: Urine 475 Other: Voiding Method Urinal Urinal Urinal Weight 133.6 kg General appearance: The patient is alert, oriented, in no acute distress. HET: Head is normocephalic and atraumatic. Pupils are equal and reactive. Oropharynx is clear without lesions. Neck: Supple without lymphadenopathy. Trachea midline. Heart: S1 S2. Regular rate and rhythm. Lungs: No crackles or wheezes are heard. Abdomen: Soft, nontender, nondistended with bowel sounds. No peritoneal signs. No palpable organomegaly or masses. Extremities: Normal skin color and turgor. No cyanosis, rash, ulceration, clubbing, or edema. Radial and pedal pulses are 2/4 bilaterally. Neurological: No focal deficits. Strength and sensation are grossly intact. Results CBC & Chem 7: 01/21/18 06:41 01/21/18 06:41 Labs: Abnormal Lab Results - Last 24 Hours (Table) 01/20/18 01/20/18 01/20/18 Range/Units 10:03 10:03 10:03 WBC 16.6 H (3.8-10.6) k/uL RBC 2.27 L (4.30-5.90) m/uL Hgb 6.0 L* (13.0-17.5) gm/dL Hct 19.5 L* (39.0-53.0) % MCHC 30.9 L (31.0-37.0) g/dL RDW 21.0 H (11.5-15.5) % Neutrophils # (1.3-7.7) k/uL Neutrophils # (Manual) 14.28 H (1.3-7.7) k/uL Lymphocytes # (Manual) 0.50 L (1.0-4.8) k/uL Monocytes # (0-1.0) k/uL Monocytes # (Manual) 1.16 H (0-1.0) k/uL Eosinophils # (0-0.7) k/uL Metamyelocytes # (Man) 0.17 H (0) k/uL PT (9.0-12.0) sec INR (<1.2) Potassium 3.4 L (3.5-5.1) mmol/L Chloride (98-107) mmol/L Carbon Dioxide (22-30) mmol/L Glucose 107 H (74-99) mg/dL Calcium 8.1 L (8.4-10.2) mg/dL Total Bilirubin (0.2-1.3) mg/dL Alkaline Phosphatase 295 H (38-126) U/L Troponin I 0.084 H* (0.000-0.034) ng/mL Total Protein (6.3-8.2) g/dL Albumin 2.5 L (3.5-5.0) g/dL Ur Specific [place] (1.001-1.035) Urine Protein (Negative) Ur Leukocyte Esterase (Negative) Urine WBC (0-5) /hpf Urine WBC Clumps (None) /hpf Urine Bacteria (None) /hpf Hyaline Casts (0-2) /lpf Urine Mucus (None) /hpf Crossmatch 01/20/18 01/20/18 01/20/18 Range/Units 10:03 10:03 15:03 WBC (3.8-10.6) k/uL RBC (4.30-5.90) m/uL Hgb (13.0-17.5) gm/dL Hct (39.0-53.0) % MCHC (31.0-37.0) g/dL RDW (11.5-15.5) % Neutrophils # (1.3-7.7) k/uL Neutrophils # (Manual) (1.3-7.7) k/uL Lymphocytes # (Manual) (1.0-4.8) k/uL Monocytes # (0-1.0) k/uL Monocytes # (Manual) (0-1.0) k/uL Eosinophils # (0-0.7) k/uL Metamyelocytes # (Man) (0) k/uL PT 15.5 H (9.0-12.0) sec INR 1.7 H (<1.2) Potassium (3.5-5.1) mmol/L Chloride (98-107) mmol/L Carbon Dioxide (22-30) mmol/L Glucose (74-99) mg/dL Calcium (8.4-10.2) mg/dL Total Bilirubin (0.2-1.3) mg/dL Alkaline Phosphatase (38-126) U/L Troponin I (0.000-0.034) ng/mL Total Protein (6.3-8.2) g/dL Albumin (3.5-5.0) g/dL Ur Specific [place] 1.040 H (1.001-1.035) Urine Protein 1+ H (Negative) Ur Leukocyte Esterase Large H (Negative) Urine WBC 88 H (0-5) /hpf Urine WBC Clumps Few H (None) /hpf Urine Bacteria Many H (None) /hpf Hyaline Casts 7 H (0-2) /lpf Urine Mucus Rare H (None) /hpf Crossmatch See Detail 01/21/18 01/21/18 01/21/18 Range/Units 06:41 06:41 06:41 WBC 11.7 H (3.8-10.6) k/uL RBC 2.70 L (4.30-5.90) m/uL Hgb 7.5 L D (13.0-17.5) gm/dL Hct 23.8 L (39.0-53.0) % MCHC (31.0-37.0) g/dL RDW 21.2 H (11.5-15.5) % Neutrophils # 8.2 H (1.3-7.7) k/uL Neutrophils # (Manual) (1.3-7.7) k/uL Lymphocytes # (Manual) (1.0-4.8) k/uL Monocytes # 1.1 H (0-1.0) k/uL Monocytes # (Manual) (0-1.0) k/uL Eosinophils # 0.8 H (0-0.7) k/uL Metamyelocytes # (Man) (0) k/uL PT 13.6 H (9.0-12.0) sec INR 1.5 H (<1.2) Potassium 3.4 L (3.5-5.1) mmol/L Chloride 109 H (98-107) mmol/L Carbon Dioxide 21 L (22-30) mmol/L Glucose (74-99) mg/dL Calcium 7.9 L (8.4-10.2) mg/dL Total Bilirubin 1.5 H (0.2-1.3) mg/dL Alkaline Phosphatase 240 H (38-126) U/L Troponin I (0.000-0.034) ng/mL Total Protein 6.0 L (6.3-8.2) g/dL Albumin 2.4 L (3.5-5.0) g/dL Ur Specific [place] (1.001-1.035) Urine Protein (Negative) Ur Leukocyte Esterase (Negative) Urine WBC (0-5) /hpf Urine WBC Clumps (None) /hpf Urine Bacteria (None) /hpf Hyaline Casts (0-2) /lpf Urine Mucus (None) /hpf Crossmatch Microbiology - Last 24 Hours (Table) 01/20/18 15:03 Urine Culture - Preliminary Urine,Voided CT scan - abdomen: report reviewed (Dr. de la cruz) Assessment and Plan (1) GI bleed Narrative/Plan: 77-year-old gentleman admitted with symptoms of unintentional weight loss 40 pounds x 2 months with decreased appetite and persistent diarrhea greater than one month duration with development of anemia, black colored melanotic bowel movements consistent with acute blood loss anemia. Underlying neoplastic process metastatic disease could not be excluded per CT imaging. Evidence of colonic diverticulosis seen on CT possible underlying mild colonic diverticulitis. Etiology of bleeding is unclear possible peptic ulcer disease possible malignancy however colonic source for bleeding possible malignancy cannot be excluded. Current Visit: Yes Status: Acute Code(s): K92.2 - GASTROINTESTINAL HEMORRHAGE, UNSPECIFIED SNOMED Code(s): 31918849 (2) Acute blood loss anemia Current Visit: Yes Status: Acute Code(s): D62 - ACUTE POSTHEMORRHAGIC ANEMIA SNOMED Code(s): 224377301 (3) Unintentional weight loss Current Visit: Yes Status: Acute Code(s): R63.4 - ABNORMAL WEIGHT LOSS SNOMED Code(s): 900741111 (4) Diarrhea Current Visit: Yes Status: Acute Code(s): R19.7 - DIARRHEA, UNSPECIFIED SNOMED Code(s): 45788882 (5) Coagulopathy Current Visit: Yes Status: Acute Code(s): D68.9 - COAGULATION DEFECT, UNSPECIFIED SNOMED Code(s): 21010491 (6) Elevated alkaline phosphatase level Current Visit: Yes Status: Acute Code(s): R74.8 - ABNORMAL LEVELS OF OTHER SERUM ENZYMES SNOMED Code(s): 512402401 Plan: 1. Oncology consultation. Will obtain CEA. Protonix 40 mg IV twice daily. CBC BMP PT/INR in a.m. 2. We'll proceed with EGD colonoscopy screening tomorrow with Dr. Roy. Clear liquid diet. Nothing by mouth after midnight. CBC monitoring. Blood transfusions as indicated. We'll follow closely with you. The condominium property manager has discussed the risks, benefits and alternative therapies for the above-mentioned procedure and for both sedation/analgesia as well as necessary blood product administration, if indicated, as they pertain to this patient. The patient has indicated understanding and acceptance of the risks and procedures discussed. Thank you for this kind referral and the opportunity to participate in the care of your patient. This consultation was discussed with Dr. De La Cruz. The impression and plan of care have been directed as dictated.
[2018-01-21] MEDS: HEPARIN SODIUM,PORCINE 5,000 UNIT/ML 1 ML VIAL SQ SCH ×2 (10:46→19:38)
[2018-01-21] MEDS: amLODIPine 5 MG TAB PO SCH (10:46)
[2018-01-21] MEDS: METOPROLOL TARTRATE 25 MG TAB PO SCH ×2 (10:47→19:36)
[2018-01-21] MEDS: PHYTONADIONE ORAL 5 MG/5 ML ORAL.SYRG PO SCH (10:48)
[2018-01-21] MEDS: TRIAMTERENE-HCTZ 37.5-25MG 1 EACH CAP PO SCH (10:48)
--- NOTE | 2018-01-21 11:23 | P.CRDCN ---
History of Present Illness Consult date: 01/21/18 Requesting physician: Willie E Sheet Reason for Consult (text): Abnormal troponin Chief complaint: Abdominal pain, diarrhea History of present illness: This is a 77-year-old gentleman with history of prior CVA/TIA, AAA, COPD, sleep apnea, hypertension, hyperlipidemia, skin carcinoma, who has been experiencing abdominal discomfort with associated diarrhea stools at home. He' s also had a weight loss of approximately 40 pounds with decrease in appetite. He was seen in consultation as an outpatient by GI service and was originally scheduled to undergo an EGD and colonoscopy as an outpatient on the . Because of the persistence in abdominal discomfort with increased in weakness and fatigue, patient came to the hospital for further evaluation. Patient also apparently had a large black colored occluded a bowel movement. He denies any recent chest discomfort and states overall that his breathing has been stable. Chest x-ray on admission here showed interstitial prominence which may reflect bronchitis or chronic asthma. There are hazy density suspected to relate to overlying soft tissue density. No acute process. CAT scan of the abdomen and pelvis revealed mild inflammatory change which may reflect mild diverticulitis or colitis. Metastatic disease to the bone is difficult to exclude. Blood pressure on arrival here 122/50 with a heart rate in the 90s to low 100s, temperature 97.9, 98% on room air. White blood cell count on admission 16.6, 11.7 this morning, hemoglobin 6.0 on admission, 7.5 this morning, platelet count 273, 276 this morning. Sodium 139, potassium 3.4, BUN 18, creatinine 0.8. Total bilirubin 1.5, troponin 0.08, BNP level 2860. At the time of my examination this morning, patient feels extremely weak, denies any chest discomfort, breathing is stable. Past Medical History Past Medical History: Cancer, COPD, CVA/TIA, Hyperlipidemia, Hypertension, Pneumonia Additional Past Medical History / Comment(s): SMALL AAA, TIA, CVA and has had vertigo/difficulty ambulating, difficulty writing and decreased hearing with R ear since, CATE with Cpap use, skin cancer with removal. History of Any Multi-Drug Resistant Organisms: None Reported Past Surgical History: Appendectomy, Tonsillectomy Additional Past Surgical History / Comment(s): Skin cancer removal, colonoscopy Past Anesthesia/Blood Transfusion Reactions: No Reported Reaction Smoking Status: Former smoker - Past Family History Father Family Medical History: No Reported History Mother Family Medical History: Osteoarthritis (OA) Medications and Allergies Home Medications Medication Instructions Recorded Confirmed Type Aspirin 81 mg PO BID 11/06/13 01/20/18 History Metoprolol Tartrate [Lopressor] 25 mg PO BID 11/06/13 01/20/18 History Multivitamin [Men's Multi-Vitamin] 1 tab PO DAILY 11/06/13 01/20/18 History Omeprazole [PriLOSEC] 20 mg PO DAILY 11/06/13 01/20/18 History Ubidecarenone [Coq-10] 100 mg PO DAILY 11/06/13 01/20/18 History Albuterol Sulfate [Proair Hfa] 2 puff INHALATION RT-QID PRN 10/13/17 01/20/18 History Felodipine ER [Plendil] 5 mg PO DAILY 10/13/17 01/20/18 History Niacin 500 mg PO DAILY 10/13/17 01/20/18 History Cholecalciferol (Vitamin D3) 2,000 unit PO DAILY 01/20/18 01/20/18 History [Vitamin D3] Cholestyramine (with Sugar) 4 gm PO DAILY 01/20/18 01/20/18 History [Questran Packet] Glycopyrrolate/Formoterol Fum 2 puff INHALATION RT-BID 01/20/18 01/20/18 History [Bevespi Aerosphere Inhaler] Pravastatin Sodium [Pravachol] 40 mg PO HS 01/20/18 01/20/18 History Triamterene-Hctz 37.5-25Mg 1 cap PO DAILY 01/20/18 01/20/18 History [Dyazide 37.5-25 Capsule] Allergies Allergy/AdvReac Type Severity Reaction Status Date / Time No Known Allergies Allergy Verified 01/20/18 09:09 Physical Exam Vitals: Vital Signs Temp Pulse Pulse Resp BP BP Pulse Ox 01/21/18 10:14 97.6 F 90 18 122/56 96 01/21/18 09:44 104 H 01/21/18 09:36 104 H 01/21/18 09:23 104 H 01/21/18 07:35 94 18 01/21/18 07:32 98.2 F 94 20 106/54 96 01/21/18 04:00 96.4 F L 94 19 111/55 93 L 01/21/18 00:24 97.0 F L 90 19 103/59 95 01/21/18 00:00 97.0 F L 90 19 103/59 95 01/20/18 21:55 96.4 F L 87 19 97/64 100 01/20/18 21:25 96.2 F L 84 19 98/55 98 01/20/18 21:15 97.0 F L 83 19 97/56 95 01/20/18 20:00 96.8 F L 101 H 101 H 19 107/55 107/55 96 01/20/18 19:53 103 H 16 01/20/18 19:41 105 H 16 01/20/18 17:56 98.7 F 100 16 111/58 98 01/20/18 17:38 97.5 F L 103 H 16 113/59 97 01/20/18 17:28 97.0 F L 105 H 16 115/56 97 01/20/18 16:00 97.0 F L 105 H 16 115/56 97 01/20/18 15:55 98.2 F 101 H 18 112/56 97 01/20/18 13:30 97.1 F L 103 H 18 122/60 100 01/20/18 13:18 97.9 F 96 16 118/56 98 01/20/18 11:38 96 16 118/56 98 Intake and Output 01/20/18 01/21/18 01/21/18 22:59 06:59 14:59 Intake Total 310 1030 0 Output Total 475 Balance -165 1030 0 Intake: Intake, IV Titration 100 Amount Piperacillin-Tazobactam 3 100 .375 gm In Dextrose/Water 1 50ml.bag @ 12.5 mls/hr IVPB Q8HR [facility] Rx#: [id number] Oral 0 0 Blood Product 310 930 Rc As-1 Unit 0 310 [id number] Rc Cpda-1 Unit 310 [id number] Output: Urine 475 Other: Voiding Method Urinal Urinal Urinal Weight 133.6 kg PHYSICAL EXAMINATION: GENERAL: 77-year-old gentleman in no acute distress at the time of my examination HEENT: Head is atraumatic, normocephalic. Pupils equal, round. Sclera anicteric. Conjunctiva are clear. Mucous membranes of the mouth are moist. Neck is supple. There is no elevated jugular venous pressure.] bruit is heard. HEART EXAMINATION: Heart S1, S2 normal. No murmur or gallop heard. CHEST EXAMINATION: Lungs are clear to auscultation and precussion. No chest wall tenderness is noted on palpation or with deep breathing. ABDOMEN: Soft, nontender. Bowel sounds are heard. No organomegaly noted. EXTREMITIES: 2+ peripheral pulses with no evidence of peripheral edema and no calf tenderness noted. NEUROLOGIC patient is awake, alert and oriented ?-3. . Results 01/21/18 06:41 01/21/18 06:41 Cardiac Enzymes 01/21/18 Range/Units 06:41 AST 30 (17-59) U/L Coagulation 01/21/18 Range/Units 06:41 PT 13.6 H (9.0-12.0) sec CBC 01/21/18 Range/Units 06:41 WBC 11.7 H (3.8-10.6) k/uL RBC 2.70 L (4.30-5.90) m/uL Hgb 7.5 L D (13.0-17.5) gm/dL Hct 23.8 L (39.0-53.0) % Plt Count 276 (150-450) k/uL Comprehensive Metabolic Panel 01/21/18 Range/Units 06:41 Sodium 139 (137-145) mmol/L Potassium 3.4 L (3.5-5.1) mmol/L Chloride 109 H (98-107) mmol/L Carbon Dioxide 21 L (22-30) mmol/L BUN 18 (9-20) mg/dL Creatinine 0.86 (0.66-1.25) mg/dL Glucose 92 (74-99) mg/dL Calcium 7.9 L (8.4-10.2) mg/dL AST 30 (17-59) U/L ALT 32 (21-72) U/L Alkaline Phosphatase 240 H (38-126) U/L Total Protein 6.0 L (6.3-8.2) g/dL Albumin 2.4 L (3.5-5.0) g/dL Current Medications Generic Name Dose Route Start Last Admin Trade Name Freq PRN Reason Stop Dose Admin Hydrocodone Bitart/Acetaminophen 1 each 09/12/18 18:05 [place] 5-325 PO Q6HR PRN Pain Albuterol Sulfate 2.5 mg 01/20/18 18:03 Ventolin Nebulized INHALATION RT-QID PRN Shortness Of Breath Amlodipine Besylate 5 mg 01/21/18 09:00 01/21/18 10:46 Norvasc PO 5 mg DAILY NIA Administration Bisacodyl 10 mg 01/21/18 12:00 Dulcolax PO 01/21/18 12:01 ONCE ONE Formoterol Fumarate 20 mcg 01/20/18 20:00 01/21/18 09:23 Perforomist INHALATION 20 mcg RT-BID NIA Administration Heparin Sodium (Porcine) 5,000 unit 01/20/18 21:00 01/21/18 10:46 Heparin SQ 5,000 unit Q12HR NIA Administration Piperacillin/Tazobactam/ 50 mls @ 12.5 mls/hr 01/20/18 18:15 01/21/18 08:32 Dextrose 3.375 gm/ IV Solution IVPB 12.5 mls/hr Q8HR NIA Administration Ipratropium [place] 0.5 mg 01/20/18 20:00 01/21/18 09:23 Atrovent Nebulized INHALATION 0.5 mg RT-QID NIA Administration Metoprolol Tartrate 25 mg 01/20/18 21:00 01/21/18 10:47 Lopressor PO 25 mg BID NIA Administration Naloxone HCl 0.2 mg 01/20/18 11:55 Narcan IV Q2M PRN Opioid Reversal Pantoprazole Sodium 40 mg 01/21/18 21:00 Protonix IVP BID [facility] Phytonadione 5 mg 01/21/18 09:00 01/21/18 10:48 Vitamin K Oral PO 5 mg DAILY NIA Administration Polyethylene Glycol/Electrolytes 4,000 ml 01/21/18 15:00 Golytely Lavage PO 01/21/18 15:01 ONCE ONE Triamterene/HCTZ 1 each 01/21/18 09:00 01/21/18 10:48 Dyazide PO 1 each DAILY NIA Administration Intake and Output 01/20/18 01/21/18 01/21/18 22:59 06:59 14:59 Intake Total 310 1030 0 Output Total 475 Balance -165 1030 0 Intake: Intake, IV Titration 100 Amount Piperacillin-Tazobactam 3 100 .375 gm In Dextrose/Water 1 50ml.bag @ 12.5 mls/hr IVPB Q8HR [facility] Rx#: [id number] Oral 0 0 Blood Product 310 930 Rc As-1 Unit 0 310 [id number] Rc Cpda-1 Unit 310 [id number] Output: Urine 475 Other: Voiding Method Urinal Urinal Urinal Weight 133.6 kg 01/21/18 06:41 01/21/18 06:41 EKG Interpretations (text) EKG shows sinus tachycardia with no acute changes. Assessment and Plan Plan: Assessment and plan #1 diarrhea and GI bleed, unintentional weight loss of greater than 40 pounds in 2 months with decreased appetite. GI consulted. Underlying neoplastic process of metastatic disease cannot be completely excluded per CT findings. #2 anemia secondary to above #3 hypertension #4 hyperlipidemia #5 abnormal troponin, patient denies having any chest discomfort and overall his breathing is been stable. #6 COPD #7 history of CVA #8 sleep apnea #9 obesity #10 AAA Plan We will obtain 2 subsequent troponins, and echo with Doppler study will also be requested. Abnormal troponin most likely secondary to supply and demand mismatch. Further recommendations to follow. DNP note has been reviewed, I agree with a documented findings and plan of care. Patient was seen and examined.
[2018-01-21] MEDS ORDERED: BISACODYL 5 MG TABLET.DR PO ONE (12:00)
--- NOTE | 2018-01-21 13:48 | ECHOF ---
Referral Reason:abn trop MEASUREMENTS -------- HEIGHT: 180.3 cm WEIGHT: 133.4 kg BP: 122/56 RVIDd: 3.5 cm (< 3.3) IVSd: 1.4 cm (0.6 - 1.1) LVIDd: 4.7 cm (3.9 - 5.3) LVPWd: 1.4 cm (0.6 - 1.1) IVSs: 1.9 cm LVIDs: 3.3 cm LVPWs: 1.9 cm LA Diam: 3.6 cm (2.7 - 3.8) LAESV Index (A-L): 26.52 ml/m Ao Diam: 3.5 cm (2.0 - 3.7) AV Cusp: 1.8 cm (1.5 - 2.6) MV EXCURSION: 16.659 mm (> 18.000) MV EF SLOPE: 56 mm/s (70 - 150) EPSS: 0.7 cm MV E Mariusz: 0.75 m/s MV DecT: 239 ms MV A Mariusz: 0.82 m/s MV E/A Ratio: 0.92 AV maxP.18 mmHg AV meanP.01 mmHg RAP: 5.00 mmHg RVSP: 34.32 mmHg FINDINGS -------- Sinus rhythm. This was a technically difficult study with suboptimal views. The left ventricular size is normal. There is moderate concentric left ventricular hypertrophy. O verall left ventricular systolic function is normal with, an EF between 60 - 65 %. The diastolic fi lling pattern is normal for the age of the patient 7.65. The right ventricle is mildly enlarged. Normal LA size by volume 22+/-6 ml/m2. The right atrium is normal in size. 4 ml of Lumason was utilized for enhancement of images. There is mild aortic valve sclerosis. There is mild aortic stenosis present. Peak/mean gradient a cross the Aortic Valve is 15.18mmHg / 6.01mmHg. Mild mitral annular calcification present. Mild mitral regurgitation is present. Mild tricuspid regurgitation present. There is borderline pulmonary hypertension. The right ventr icular systolic pressure, as measured by Doppler, is 34.32mmHg. The pulmonic valve was not well visualized. The aortic root size is normal. Normal inferior vena cava with normal inspiratory collapse consistent with estimated right atrial pre ssure of 5 mmHg. The inferior vena cava is mildly dilated. There is no pericardial effusion. CONCLUSIONS -------- 1. Sinus rhythm. 2. This was a technically difficult study with suboptimal views. 3. The left ventricular size is normal. 4. There is moderate concentric left ventricular hypertrophy. 5. Overall left ventricular systolic function is normal with, an EF between 60 - 65 %. 6. The diastolic filling pattern is normal for the age of the patient 7.65 7. The right ventricle is mildly enlarged. 8. Normal LA size by volume 22+/-6 ml/m2. 9. The right atrium is normal in size. 10. 4 ml of Lumason was utilized for enhancement of images. 11. There is mild aortic valve sclerosis. 12. There is mild aortic stenosis present. 13. Peak/mean gradient across the Aortic Valve is 15.18mmHg / 6.01mmHg. 14. Mild mitral annular calcification present. 15. Mild mitral regurgitation is present. 16. Mild tricuspid regurgitation present. 17. There is borderline pulmonary hypertension. 18. The right ventricular systolic pressure, as measured by Doppler, is 34.32mmHg. 19. The pulmonic valve was not well visualized. 20. The aortic root size is normal. 21. Normal inferior vena cava with normal inspiratory collapse consistent with estimated right atrial pressure of 5 mmHg. 22. The inferior vena cava is mildly dilated. 23. There is no pericardial effusion. JIGSAWYER: Zuly Collins RDCS
[2018-01-21] MEDS ORDERED: PEG 3350-NA SULF,BICARB,CL/KCL 4,000 ML BOTTLE PO ONE (15:00)
[2018-01-21] MEDS ORDERED: Potassium Replacement Protocol 1 EACH MISC MISCELLANE PRN (17:37)
--- NOTE | 2018-01-21 19:30 | P.CONS ---
History of Present Illness - Reason for Consult Consult date: 01/21/18 - History of Present Illness Mr. Piper is a very pleasant male pt of Dr. Nelson seen in consult at [facility] on 11/20/17. Presented with c/o persistent diarrhea 1- 2 months with 30 pounds in weight. Only thing prior to development of diarrhea was treatment for lower extremity cellulitis with antibiotics. CT AP showed liver enlargement with heterogenous appearance, hanna hepatic adenopathy measuring up to 2.1 cm, portacaval lymph nodes measuring 1.7 cm, small and mildly enlarged retroperitoneal nodes, spleen enlarged measuring 15.7 cm, bladder distended with prostatic enlargement and calcifications noted, incidentally diffuse osteosclerotic appearance was noted with scattered lucent lesions. Differentials included diffuse osseous metastasis, marrow infiltrative process as well as metabolic etiology such as hyperparathyroidism, CTA chest did not show any parenchymal masses or adenopathy, bone scan revealed a super scan-type appearance, similar differentials as noted in the CT scan. Mild anemia, workup was negative, myeloma workup was negative. PTH level was elevated at 83.1. MRI of the liver on 12/04/17 revealed fatty infiltration of the liver causing hepatomegaly with no discrete suspicious hepatic lesions. Adenopathy was again noted in the periportal and periaortic regions and was felt to be overall nonspecific based on size and appearance. The patient was seen for his first office visit on 12/30/17 and was scheduled to see Dr. Roy for endoscopy. Pt ended in hospital due to fall when he was headed to bathroom, he could not get up, he is still having diarrhea, stool is black, denied fever, nausea, vomiting, JANELL, dizziness, abd pain, cramping, rectal pain, bleeding, mild swelling of the legs, moderate weakness, no pain. Review of Systems 14 point ROS is as stated in HPI Past Medical History Past Medical History: Cancer, COPD, CVA/TIA, Hyperlipidemia, Hypertension, Pneumonia Additional Past Medical History / Comment(s): SMALL AAA, TIA, CVA and has had vertigo/difficulty ambulating, difficulty writing and decreased hearing with R ear since, CATE with Cpap use, skin cancer with removal. History of Any Multi-Drug Resistant Organisms: None Reported Past Surgical History: Appendectomy, Tonsillectomy Additional Past Surgical History / Comment(s): Skin cancer removal, colonoscopy Past Anesthesia/Blood Transfusion Reactions: No Reported Reaction Smoking Status: Former smoker (quit 1987) Past Alcohol Use History: None Reported Past Drug Use History: None Reported - Past Family History Father Family Medical History: No Reported History Mother Family Medical History: Osteoarthritis (OA) Medications and Allergies Home Medications Medication Instructions Recorded Confirmed Type Aspirin 81 mg PO BID 11/06/13 01/20/18 History Metoprolol Tartrate [Lopressor] 25 mg PO BID 11/06/13 01/20/18 History Multivitamin [Men's Multi-Vitamin] 1 tab PO DAILY 11/06/13 01/20/18 History Omeprazole [PriLOSEC] 20 mg PO DAILY 11/06/13 01/20/18 History Ubidecarenone [Coq-10] 100 mg PO DAILY 11/06/13 01/20/18 History Albuterol Sulfate [Proair Hfa] 2 puff INHALATION RT-QID PRN 10/13/17 01/20/18 History Felodipine ER [Plendil] 5 mg PO DAILY 10/13/17 01/20/18 History Niacin 500 mg PO DAILY 10/13/17 01/20/18 History Cholecalciferol (Vitamin D3) 2,000 unit PO DAILY 01/20/18 01/20/18 History [Vitamin D3] Cholestyramine (with Sugar) 4 gm PO DAILY 01/20/18 01/20/18 History [Questran Packet] Glycopyrrolate/Formoterol Fum 2 puff INHALATION RT-BID 01/20/18 01/20/18 History [Bevespi Aerosphere Inhaler] Pravastatin Sodium [Pravachol] 40 mg PO HS 01/20/18 01/20/18 History Triamterene-Hctz 37.5-25Mg 1 cap PO DAILY 01/20/18 01/20/18 History [Dyazide 37.5-25 Capsule] Allergies Allergy/AdvReac Type Severity Reaction Status Date / Time No Known Allergies Allergy Verified 01/20/18 09:09 Physical Exam Vitals: Vital Signs Temp Pulse Pulse Resp BP BP Pulse Ox 01/21/18 15:20 98.4 F 82 18 115/58 95 01/21/18 13:47 100 01/21/18 13:36 100 01/21/18 12:00 98.3 F 80 20 100/50 97 01/21/18 10:14 97.6 F 90 18 122/56 96 01/21/18 09:44 104 H 01/21/18 09:36 104 H 01/21/18 09:23 104 H 01/21/18 07:35 94 18 01/21/18 07:32 98.2 F 94 20 106/54 96 01/21/18 04:00 96.4 F L 94 19 111/55 93 L 01/21/18 00:24 97.0 F L 90 19 103/59 95 01/21/18 00:00 97.0 F L 90 19 103/59 95 01/20/18 21:55 96.4 F L 87 19 97/64 100 01/20/18 21:25 96.2 F L 84 19 98/55 98 01/20/18 21:15 97.0 F L 83 19 97/56 95 01/20/18 20:00 96.8 F L 101 H 101 H 19 107/55 107/55 96 01/20/18 19:53 103 H 16 01/20/18 19:41 105 H 16 Intake and Output 01/21/18 01/21/18 01/21/18 06:59 14:59 22:59 Intake Total 1030 400 540 Balance 1030 400 540 Intake: Intake, IV Titration 100 Amount Piperacillin-Tazobactam 3 100 .375 gm In Dextrose/Water 1 50ml.bag @ 12.5 mls/hr IVPB Q8HR [facility] Rx#: [id number] Oral 400 540 Blood Product 930 Rc As-1 Unit 310 [id number] Other: Voiding Method Urinal Urinal Bedside Commode # Voids 2 # Bowel Movements 3 Weight 133.6 kg - Constitutional General appearance: cooperative, no acute distress, obese - EENT Eyes: anicteric sclerae, EOMI, normal appearance ENT: hearing grossly normal, normal oropharynx - Neck Neck: no lymphadenopathy - Respiratory Respiratory: bilateral: CTA - Cardiovascular Rhythm: regular Heart sounds: normal: S1, S2 leg Peripheral Edema: bilateral: Trace - Gastrointestinal General gastrointestinal: no absent bowel sounds, no decreased bowel sounds, no distended, no hepatomegaly, no hyperactive bowel sounds, normal bowel sounds, no organomegaly, no rigid, no scaphoid, soft, no splenomegaly, no tenderness, no umbilical hernia, no ventral hernia - Neurologic Neurologic: CNII-XII intact - Musculoskeletal Musculoskeletal: generalized weakness, strength equal bilaterally - Psychiatric Psychiatric: A&O x's 3, appropriate affect, intact judgment & insight Results CBC & Chem 7: 01/21/18 06:41 01/21/18 06:41 Labs: Abnormal Lab Results - Last 24 Hours (Table) 01/20/18 01/21/18 01/21/18 Range/Units 10:03 06:41 06:41 WBC 11.7 H (3.8-10.6) k/uL RBC 2.70 L (4.30-5.90) m/uL Hgb 7.5 L D (13.0-17.5) gm/dL Hct 23.8 L (39.0-53.0) % RDW 21.2 H (11.5-15.5) % Neutrophils # 8.2 H (1.3-7.7) k/uL Monocytes # 1.1 H (0-1.0) k/uL Eosinophils # 0.8 H (0-0.7) k/uL PT (9.0-12.0) sec INR (<1.2) Potassium 3.4 L (3.5-5.1) mmol/L Chloride 109 H (98-107) mmol/L Carbon Dioxide 21 L (22-30) mmol/L Calcium 7.9 L (8.4-10.2) mg/dL Total Bilirubin 1.5 H (0.2-1.3) mg/dL Alkaline Phosphatase 240 H (38-126) U/L Troponin I (0.000-0.034) ng/mL Total Protein 6.0 L (6.3-8.2) g/dL Albumin 2.4 L (3.5-5.0) g/dL Crossmatch See Detail 01/21/18 01/21/18 01/21/18 Range/Units 06:41 06:41 12:49 WBC (3.8-10.6) k/uL RBC (4.30-5.90) m/uL Hgb (13.0-17.5) gm/dL Hct (39.0-53.0) % RDW (11.5-15.5) % Neutrophils # (1.3-7.7) k/uL Monocytes # (0-1.0) k/uL Eosinophils # (0-0.7) k/uL PT 13.6 H (9.0-12.0) sec INR 1.5 H (<1.2) Potassium (3.5-5.1) mmol/L Chloride (98-107) mmol/L Carbon Dioxide (22-30) mmol/L Calcium (8.4-10.2) mg/dL Total Bilirubin (0.2-1.3) mg/dL Alkaline Phosphatase (38-126) U/L Troponin I 0.061 H* 0.054 H* (0.000-0.034) ng/mL Total Protein (6.3-8.2) g/dL Albumin (3.5-5.0) g/dL Crossmatch Microbiology - Last 24 Hours (Table) 01/20/18 14:38 Blood Culture - Preliminary Blood No Growth after 24 hours 01/20/18 15:03 Urine Culture - Preliminary Urine,Voided CT scan - abdomen: report reviewed CT scan - pelvis: report reviewed Assessment and Plan (1) Anemia Narrative/Plan: Transfuse to keep Hgb>7. Previous work has been negative for correctable cause. More studies pending, GI to seen and evaluate pt Current Visit: Yes Status: Acute Priority: High Code(s): D64.9 - ANEMIA, UNSPECIFIED SNOMED Code(s): 741411035 (2) Coagulopathy Narrative/Plan: Suspect due to vit K deficiency secondary to diarrhea, poor diet. Vit K has already been ordered. Agree with cont to monitor INR and adm parenteral vit K PRN Current Visit: Yes Status: Acute Priority: High Code(s): D68.9 - COAGULATION DEFECT, UNSPECIFIED SNOMED Code(s): 23612043 (3) Diarrhea Narrative/Plan: Chronic, GI work up pending. Current Visit: Yes Status: Acute Priority: High Code(s): R19.7 - DIARRHEA , UNSPECIFIED SNOMED Code(s): 44769877 Plan: Doctor attests:I have performed a history and physical exam of this pt, discussed with dictator. I agree with dictated note, documented as a scribe.
[2018-01-21] MEDS: PANTOPRAZOLE 40 MG/10 ML VIAL IVP SCH (19:37)
[2018-01-22 05:59] LABS: Anisocytosis Moderate; HCT 23.4 % (39.0-53.0); HGB 7.5 gm/dL (13.0-17.5); Hypochromasia Marked; MCH 28.1 pg (25.0-35.0); MCHC 31.9 g/dL (31.0-37.0); MCV 88.1 fL (80.0-100.0); Mean Platelet Volume 7.6; Platelet Count 257 k/uL (150-450); Poikilocytosis Marked; RBC 2.66 m/uL (4.30-5.90); RDW 21.2 % (11.5-15.5); WBC 9.7 k/uL (3.8-10.6)
[2018-01-22 06:10] LABS: Potassium 3.2 mmol/L (3.5-5.1)
[2018-01-22 06:11] LABS: Albumin 2.4 g/dL (3.5-5.0); Calcium 7.7 mg/dL (8.4-10.2); Total Bilirubin 1.4 mg/dL (0.2-1.3)
[2018-01-22 06:23] LABS: INR 1.2 (<1.2); Prothrombin Time 11.6 sec (9.0-12.0)
[2018-01-22] MEDS ORDERED: Potassium Replacement Protocol 1 EACH MISC MISCELLANE PRN (06:35)
[2018-01-22] MEDS: FORMOTEROL FUMARATE 20 MCG/2 ML NEBU INHALATION SCH ×2 (08:09→21:10)
[2018-01-22] MEDS: IPRATROPIUM 0.5 MG/2.5 ML NEBU INHALATION SCH ×4 (08:09→21:10)
[2018-01-22] MEDS: PIPERACILLIN-TAZOBACTAM 3.375 GM in DEXTROSE/WATER 1 50ML.BAG IVPB SCH ×3 (08:21→23:46)
[2018-01-22 08:33] LABS: Eosinophils # (M) 0.87 k/uL (0-0.7); Lymphocytes # (M) 2.13 k/uL (1.0-4.8); Monocytes # (M) 0.58 k/uL (0-1.0); Neutrophils # (M) 6.11 k/uL (1.3-7.7); Neutrophils % (M) 63 %; Nucleated Red Blood Cells 0 /100 WBC (0-0); Total Cells Counted 100
[2018-01-22] MEDS: POTASSIUM CHLORIDE ER 20 MEQ TAB.ER PO SCH ×2 (08:57→10:10)
[2018-01-22] MEDS: HEPARIN SODIUM,PORCINE 5,000 UNIT/ML 1 ML VIAL SQ SCH ×2 (10:08→21:45)
[2018-01-22] MEDS: amLODIPine 5 MG TAB PO SCH (10:11)
[2018-01-22] MEDS: METOPROLOL TARTRATE 25 MG TAB PO SCH ×2 (10:12→21:45)
[2018-01-22] MEDS: PANTOPRAZOLE 40 MG/10 ML VIAL IVP SCH ×2 (10:13→21:46)
[2018-01-22] MEDS: TRIAMTERENE-HCTZ 37.5-25MG 1 EACH CAP PO SCH (10:13)
[2018-01-22] MEDS: PHYTONADIONE ORAL 5 MG/5 ML ORAL.SYRG PO SCH (10:13)
--- NOTE | 2018-01-22 12:36 | P.PN ---
Subjective Progress Note Date: 01/22/18 This is a 77-year-old gentleman with history of prior CVA/TIA, AAA, COPD, sleep apnea, hypertension, hyperlipidemia, skin carcinoma, who has been experiencing abdominal discomfort with associated diarrhea stools at home. He' s also had a weight loss of approximately 40 pounds with decrease in appetite. He was seen in consultation as an outpatient by GI service and was originally scheduled to undergo an EGD and colonoscopy as an outpatient on the . Because of the persistence in abdominal discomfort with increased in weakness and fatigue, patient came to the hospital for further evaluation. Patient also apparently had a large black colored occluded a bowel movement. He denies any recent chest discomfort and states overall that his breathing has been stable. Chest x-ray on admission here showed interstitial prominence which may reflect bronchitis or chronic asthma. There are hazy density suspected to relate to overlying soft tissue density. No acute process. CAT scan of the abdomen and pelvis revealed mild inflammatory change which may reflect mild diverticulitis or colitis. Metastatic disease to the bone is difficult to exclude. Blood pressure on arrival here 122/50 with a heart rate in the 90s to low 100s, temperature 97.9, 98% on room air. White blood cell count on admission 16.6, 11.7 this morning, hemoglobin 6.0 on admission, 7.5 this morning, platelet count 273, 276 this morning. Sodium 139, potassium 3.4, BUN 18, creatinine 0.8. Total bilirubin 1.5, troponin 0.08, BNP level 2860. At the time of my examination this morning, patient feels extremely weak, denies any chest discomfort, breathing is stable. 01/22/2018 was seen and examined this morning,hemodynamically stable. Echocardiogram with Doppler study was reviewed which revealed a normal left ventricular systolic function. Objective - Vital Signs Vital signs: Vital Signs Temp 97.4 F L 01/22/18 12:16 Pulse 83 01/22/18 12:16 Resp 16 01/22/18 08:00 BP 103/51 01/22/18 12:16 Pulse Ox 94 L 01/22/18 12:16 Intake & Output 01/21/18 01/22/18 01/22/18 18:59 06:59 18:59 Intake Total 940 4600 Balance 940 4600 Weight 134.8 kg 134.8 kg Intake: IV 4000 golytely 4000 Oral 940 600 Other: Voiding Method Bedside Commode Bedside Commode Bedside Commode Urinal Urinal # Voids 2 1 # Bowel Movements 3 - Exam PHYSICAL EXAMINATION: GENERAL: 77-year-old gentleman in no acute distress at the time of my examination HEENT: Head is atraumatic, normocephalic. Pupils equal, round. Sclera anicteric. Conjunctiva are clear. Mucous membranes of the mouth are moist. Neck is supple. There is no elevated jugular venous pressure.] bruit is heard. HEART EXAMINATION: Heart S1, S2 normal. No murmur or gallop heard. CHEST EXAMINATION: Lungs are clear to auscultation and precussion. No chest wall tenderness is noted on palpation or with deep breathing. ABDOMEN: Soft, nontender. Bowel sounds are heard. No organomegaly noted. EXTREMITIES: 2+ peripheral pulses with no evidence of peripheral edema and no calf tenderness noted. NEUROLOGIC patient is awake, alert and oriented ?-3. - Labs CBC & Chem 7: 01/22/18 05:35 01/22/18 11:55 Labs: Abnormal Lab Results - Last 24 Hours (Table) 01/20/18 01/21/18 01/21/18 Range/Units 10:03 12:49 19:05 RBC (4.30-5.90) m/uL Hgb (13.0-17.5) gm/dL Hct (39.0-53.0) % RDW (11.5-15.5) % Eosinophils # (Manual) (0-0.7) k/uL INR (<1.2) Sodium (137-145) mmol/L Potassium (3.5-5.1) mmol/L Calcium (8.4-10.2) mg/dL Total Bilirubin (0.2-1.3) mg/dL Alkaline Phosphatase (38-126) U/L Troponin I 0.054 H* 0.047 H* (0.000-0.034) ng/mL Total Protein (6.3-8.2) g/dL Albumin (3.5-5.0) g/dL Crossmatch See Detail 01/22/18 01/22/18 01/22/18 Range/Units 05:35 05:35 05:35 RBC 2.66 L (4.30-5.90) m/uL Hgb 7.5 L (13.0-17.5) gm/dL Hct 23.4 L (39.0-53.0) % RDW 21.2 H (11.5-15.5) % Eosinophils # (Manual) 0.87 H (0-0.7) k/uL INR 1.2 H (<1.2) Sodium 135 L (137-145) mmol/L Potassium 3.2 L (3.5-5.1) mmol/L Calcium 7.7 L (8.4-10.2) mg/dL Total Bilirubin 1.4 H (0.2-1.3) mg/dL Alkaline Phosphatase 225 H (38-126) U/L Troponin I (0.000-0.034) ng/mL Total Protein 6.0 L (6.3-8.2) g/dL Albumin 2.4 L (3.5-5.0) g/dL Crossmatch 01/22/18 Range/Units 11:55 RBC (4.30-5.90) m/uL Hgb (13.0-17.5) gm/dL Hct (39.0-53.0) % RDW (11.5-15.5) % Eosinophils # (Manual) (0-0.7) k/uL INR (<1.2) Sodium (137-145) mmol/L Potassium 3.4 L (3.5-5.1) mmol/L Calcium (8.4-10.2) mg/dL Total Bilirubin (0.2-1.3) mg/dL Alkaline Phosphatase (38-126) U/L Troponin I (0.000-0.034) ng/mL Total Protein (6.3-8.2) g/dL Albumin (3.5-5.0) g/dL Crossmatch Microbiology - Last 24 Hours (Table) 01/20/18 15:03 Urine Culture - Preliminary Urine,Voided Gram Neg Bacilli 01/20/18 14:38 Blood Culture - Preliminary Blood No Growth after 24 hours Assessment and Plan Plan: Assessment and plan #1 diarrhea and GI bleed, unintentional weight loss of greater than 40 pounds in 2 months with decreased appetite. GI consulted. Underlying neoplastic process of metastatic disease cannot be completely excluded per CT findings. #2 anemia secondary to above #3 hypertension #4 hyperlipidemia #5 abnormal troponin, patient denies having any chest discomfort and overall his breathing is been stable. #6 COPD #7 history of CVA #8 sleep apnea #9 obesity #10 AAA Plan Echocardiogram with Doppler study was performed which revealed a normal left and jugular systolic function. Troponin abnormality not suggestive of acute coronary syndrome. We will follow this patient along with you now on an as- needed basis only, please don't hesitate to call with any questions. DNP note has been reviewed, I agree with a documented findings and plan of care. Patient was seen and examined.
[2018-01-22] MEDS ORDERED: PROPOFOL 10 MG/ML 20 ML VIAL IV ONE (14:55)
[2018-01-22] MEDS ORDERED: SODIUM CHLORIDE 0.9% 500 ML IV ONE (15:05)
--- NOTE | 2018-01-22 15:44 | P.PCN ---
Date of Procedure: 01/22/18 Procedure(s) Performed: Brief history: Patient is a pleasant 77-year-old pleasant white male, admitted to the hospital with severe symptomatic anemia and hemoglobin of 6 g/dL. He is currently receiving 2 units of blood transfusion. He was having severe chronic diarrhea for the last 2 months duration and lost 40 pounds of weight. He was scheduled for an outpatient EGD and colonoscopy today however in the meantime was admitted to the hospital and undergoing endoscopic intervention. He also had an episode of black tarry stools prior to recent hospitalization Procedure performed: Esophagogastroduodenoscopy with biopsy Colonoscopy snare polypectomy and biopsy Preoperative diagnosis: GI bleed, severe symptomatic anemia, chronic diarrhea for 40 pounds in the last 2 months duration Anesthesia: MAC Procedure: After informed consent was obtained from the patient was brought into the endoscopy unit and IV sedation was administered by anesthesia under continuous monitoring. Initially upper endoscopy was done. The Olympus GF 160 video endoscope was inserted inserted into the mouth and esophagus intubated without any difficulty and was gradually advanced into the stomach and duodenum and carefully examined. In the bulb of the duodenum there was a 2 cm broad-based polyp with a deep central ulceration but no active bleeding. The tract this appears to be the source of recent bleed. Multiple biopsies were done from this area. The mucosa of the second part of the duodenum appeared slightly inflated and multiple biopsies were also done from this area to rule out celiac disease. The scope was then withdrawn into the stomach adequately insufflated with air and upon careful examination the antrum and body, cardia and fundus appeared normal. The scope was then withdrawn into the esophagus. The GE junction was located at 40 cm to the incisors. It appeared regular with no erythema erosions or ulcerations. Rest of the esophagus appeared normal. Patient tolerated the procedure well. At this time the patient continued to remain sedation. Initial digital rectal examination was normal. Olympus CF 160 video colonoscope was then inserted into the rectum and gradually advanced to the cecum without any difficulty. Careful examination was performed as the scope was gradually being withdrawn. The prep was excellent. The cecum, appeared normal. In the ascending colon there was a 1 cm polyp removed by snare polypectomy. Rest of the ascending colon, transverse colon, descending colon, sigmoid colon and rectum appeared normal. Scattered sigmoid diverticula seen. Retroflexion was performed in the rectum and no lesions were noted. Patient tolerated the procedure well. Impression: 1. Upper endoscopy revealed 2 cm broad-based polyp in the duodenal bulb with a deep central ulceration but no active bleeding status post multiple biopsies to rule out neoplasm. 2. Colonoscopy revealed 1 cm ascending colon polyp status post snare polypectomy and scattered similar diverticulosis Recommendations: Findings of this examination were discussed with the patient as well as his family. He was advised to follow with the biopsy results. He'll be started of liquid diet. Repeat CBC in the morning.
[2018-01-22] MEDS ORDERED: Magnesium Replacement Protocol 1 EACH MISC MISCELLANE PRN (16:06)
--- NOTE | 2018-01-22 16:27 | P.PN ---
Subjective Progress Note Date: 01/21/18 Progress note being dictated for Dr. Betts. Interval history: This is a 77-year-old gentleman admitted with severe weakness , possible upper GI bleeding, acute blood loss anemia, acute UTI, severe dehydration, coagulopathy, elevated troponin and multiple other medical issues. Status post transfusions of packed RBCs with current hemoglobin 7.5. No further bleeding. potassium 3.4, being supplemented. INR 1.5. CT of abdomen and pelvis reported possible mild diverticulitis or colitis, bone metastasis to the lumbar spine, thoracic spine and pelvis difficult to exclude. Total bili 1.5, elevated alk phos trending down. Evaluated by GI with EGD and colonoscopy scheduled for tomorrow. Echo suboptimal, reporting normal LV function, EF 6065% , moderate concentric left ventricular hypertrophy, borderline pulmonary hypertension. Denies chest pain, palpitations, or increasing shortness of breath. Evaluated by cardiology with recommendations noted. Objective - Vital Signs Vital signs: Vital Signs Temp 98.4 F 01/21/18 15:20 Pulse 82 01/21/18 15:20 Resp 18 01/21/18 15:20 BP 115/58 01/21/18 15:20 Pulse Ox 95 01/21/18 15:20 Intake & Output 01/20/18 01/21/18 01/21/18 18:59 06:59 18:59 Intake Total 0 1340 540 Output Total 475 Balance -475 1340 540 Weight 136.078 kg 133.6 kg Intake: Intake, IV Titration 100 Amount Piperacillin-Tazobactam 3 100 .375 gm In Dextrose/Water 1 50ml.bag @ 12.5 mls/hr IVPB Q8HR [facility] Rx#: [id number] Oral 0 540 Blood Product 0 1240 Rc As-1 Unit 310 [id number] Rc Cpda-1 Unit 0 310 [id number] Output: Urine 475 Other: Voiding Method Urinal Urinal Bedside Commode # Voids 2 # Bowel Movements 3 - Exam PHYSICAL EXAM: VITAL SIGNS: [As above] GENERAL: Sitting up in bed, weak appearing HEENT: Conjunctivae normal. eyes normal. Oral mucosa moist NECK: No JVD. No thyroid enlargement. No LNs CARDIOVASCULAR: S1, S2 muffled. Regular, No murmur RESPIRATION: Breath sounds diminished in the bases. No rhonchi , few scattered crackles. ABDOMEN: Soft, nondistended, nontender . No guarding. no masses palpable. Bowel sounds heard. LEGS: No edema. no swelling , no cyanosis, no clubbing PSYCHIATRY: Alert and oriented -3, mood and affect normal. NERVOUS SYSTEM: Cranial N 2-12 grossly normal. Moves all 4 limbs. Diffuse weakness No focal deficits. Skin: no ulcer no rash Joints: No active swelling. No inflammation. Lymphatic system. No LN neck axilla or groin. - Labs CBC & Chem 7: 01/22/18 05:35 01/22/18 11:55 Labs: Abnormal Lab Results - Last 24 Hours (Table) 01/20/18 01/21/18 01/21/18 Range/Units 10:03 06:41 06:41 WBC 11.7 H (3.8-10.6) k/uL RBC 2.70 L (4.30-5.90) m/uL Hgb 7.5 L D (13.0-17.5) gm/dL Hct 23.8 L (39.0-53.0) % RDW 21.2 H (11.5-15.5) % Neutrophils # 8.2 H (1.3-7.7) k/uL Monocytes # 1.1 H (0-1.0) k/uL Eosinophils # 0.8 H (0-0.7) k/uL PT (9.0-12.0) sec INR (<1.2) Potassium 3.4 L (3.5-5.1) mmol/L Chloride 109 H (98-107) mmol/L Carbon Dioxide 21 L (22-30) mmol/L Calcium 7.9 L (8.4-10.2) mg/dL Total Bilirubin 1.5 H (0.2-1.3) mg/dL Alkaline Phosphatase 240 H (38-126) U/L Troponin I (0.000-0.034) ng/mL Total Protein 6.0 L (6.3-8.2) g/dL Albumin 2.4 L (3.5-5.0) g/dL Crossmatch See Detail 01/21/18 01/21/18 01/21/18 Range/Units 06:41 06:41 12:49 WBC (3.8-10.6) k/uL RBC (4.30-5.90) m/uL Hgb (13.0-17.5) gm/dL Hct (39.0-53.0) % RDW (11.5-15.5) % Neutrophils # (1.3-7.7) k/uL Monocytes # (0-1.0) k/uL Eosinophils # (0-0.7) k/uL PT 13.6 H (9.0-12.0) sec INR 1.5 H (<1.2) Potassium (3.5-5.1) mmol/L Chloride (98-107) mmol/L Carbon Dioxide (22-30) mmol/L Calcium (8.4-10.2) mg/dL Total Bilirubin (0.2-1.3) mg/dL Alkaline Phosphatase (38-126) U/L Troponin I 0.061 H* 0.054 H* (0.000-0.034) ng/mL Total Protein (6.3-8.2) g/dL Albumin (3.5-5.0) g/dL Crossmatch Microbiology - Last 24 Hours (Table) 01/20/18 14:38 Blood Culture - Preliminary Blood No Growth after 24 hours 01/20/18 15:03 Urine Culture - Preliminary Urine,Voided Assessment and Plan Assessment: -Severe weakness, possible upper GI bleeding with acute blood loss anemia. mild diverticulitis or colitis, possible bone metastasis to the lumbar spine, thoracic spine and pelvis per CT, in a patient with diarrhea, significant unintentional weight loss of 40 pounds in 2 months. -Acute UTI with sepsis -Leukocytosis secondary to the above -Severe dehydration -Troponin 0.085, indeterminate -Coagulopathy -Morbid Obesity, BMI 41.8 -Hypokalemia Plan: Continue on current medication regime ,monitoring and symptomatic treatment. Retained gentle IV fluid hydration, PPI, vitamin K. Close monitoring of CBC, PT/INR. CEA pending. Scheduled for EGD and colonoscopy tomorrow. Prognosis guarded given multiple complex medical issues. Follow closely with cardiology, GI and oncology. The impression and plan of care has been dictated as directed. : I performed a history and examination of this patient, discussed the same with the dictator. I agree with the dictator's note ,documented as a scribe. Any additional findings or plans will be noted.
--- NOTE | 2018-01-22 16:34 | P.PN ---
Subjective Progress Note Date: 01/22/18 Progress note being dictated for Dr. Betts. Interval history: This is a 77-year-old gentleman admitted with severe weakness , possible upper GI bleeding, acute blood loss anemia, acute UTI, severe dehydration, coagulopathy, elevated troponin and multiple other medical issues. Status post transfusions of packed RBCs with current hemoglobin 7.5. No further bleeding. potassium 3.4, being supplemented. INR 1.5. CT of abdomen and pelvis reported possible mild diverticulitis or colitis, bone metastasis to the lumbar spine, thoracic spine and pelvis difficult to exclude. Total bili 1.5, elevated alk phos trending down. Evaluated by GI with EGD and colonoscopy scheduled for tomorrow. Echo suboptimal, reporting normal LV function, EF 6065% , moderate concentric left ventricular hypertrophy, borderline pulmonary hypertension. Denies chest pain, palpitations, or increasing shortness of breath. Evaluated by cardiology with recommendations noted. 01/22/2018 symptomatic anemia-short of breath.NPO, awaiting EGD and colonoscopy today. INR 1.2. Receiving potassium supplementation. Magnesium level pending. Denies chest pain, palpitations. Hemoglobin remained 7.5 with no bleeding reported. Objective - Vital Signs Vital signs: Vital Signs Temp 97.4 F L 01/22/18 14:44 Pulse 93 01/22/18 14:44 Resp 18 01/22/18 14:44 BP 115/58 01/22/18 14:44 Pulse Ox 93 L 01/22/18 14:44 Intake & Output 01/21/18 01/22/18 01/22/18 18:59 06:59 18:59 Intake Total 940 4600 200 Balance 940 4600 200 Weight 134.8 kg 134.8 kg Intake: IV 4000 200 golytely 4000 Oral 940 600 Blood Product 0 Rc As-1 Unit 0 [id number] Other: Voiding Method Bedside Commode Bedside Commode Bedside Commode Urinal Urinal # Voids 2 1 # Bowel Movements 3 - Exam PHYSICAL EXAM: VITAL SIGNS: [As above] GENERAL: Sitting up in bed, weak appearing HEENT: Conjunctivae normal. eyes normal. Oral mucosa moist NECK: No JVD. No thyroid enlargement. No LNs CARDIOVASCULAR: S1, S2 muffled. Regular, No murmur RESPIRATION: Mildly increased respiratory effort ,Breath sounds diminished in the bases. No rhonchi , few scattered crackles. ABDOMEN: Soft, nondistended, nontender . No guarding. no masses palpable. Bowel sounds heard. LEGS: No edema. no swelling , no cyanosis, no clubbing PSYCHIATRY: Alert and oriented -3, mood and affect normal. NERVOUS SYSTEM: Cranial N 2-12 grossly normal. Moves all 4 limbs. Diffuse weakness No focal deficits. Skin: no ulcer no rash Joints: No active swelling. No inflammation. Lymphatic system. No LN neck axilla or groin. - Labs CBC & Chem 7: 01/22/18 05:35 01/22/18 11:55 Labs: Abnormal Lab Results - Last 24 Hours (Table) 01/20/18 01/21/18 01/22/18 Range/Units 10:03 19:05 05:35 RBC 2.66 L (4.30-5.90) m/uL Hgb 7.5 L (13.0-17.5) gm/dL Hct 23.4 L (39.0-53.0) % RDW 21.2 H (11.5-15.5) % Eosinophils # (Manual) 0.87 H (0-0.7) k/uL INR (<1.2) Sodium (137-145) mmol/L Potassium (3.5-5.1) mmol/L Calcium (8.4-10.2) mg/dL Total Bilirubin (0.2-1.3) mg/dL Alkaline Phosphatase (38-126) U/L Troponin I 0.047 H* (0.000-0.034) ng/mL Total Protein (6.3-8.2) g/dL Albumin (3.5-5.0) g/dL Crossmatch See Detail 01/22/18 01/22/18 01/22/18 Range/Units 05:35 05:35 11:55 RBC (4.30-5.90) m/uL Hgb (13.0-17.5) gm/dL Hct (39.0-53.0) % RDW (11.5-15.5) % Eosinophils # (Manual) (0-0.7) k/uL INR 1.2 H (<1.2) Sodium 135 L (137-145) mmol/L Potassium 3.2 L 3.4 L (3.5-5.1) mmol/L Calcium 7.7 L (8.4-10.2) mg/dL Total Bilirubin 1.4 H (0.2-1.3) mg/dL Alkaline Phosphatase 225 H (38-126) U/L Troponin I (0.000-0.034) ng/mL Total Protein 6.0 L (6.3-8.2) g/dL Albumin 2.4 L (3.5-5.0) g/dL Crossmatch Microbiology - Last 24 Hours (Table) 01/20/18 15:03 Urine Culture - Preliminary Urine,Voided Gram Neg Bacilli 01/20/18 14:38 Blood Culture - Preliminary Blood No Growth after 24 hours Assessment and Plan Assessment: -Severe weakness, possible upper GI bleeding with acute blood loss anemia. mild diverticulitis or colitis, possible bone metastasis to the lumbar spine, thoracic spine and pelvis per CT, in a patient with diarrhea, significant unintentional weight loss of 40 pounds in 2 months. -Acute UTI with sepsis -Leukocytosis secondary to the above -Severe dehydration -Troponin 0.085, indeterminate -Coagulopathy -Morbid Obesity, BMI 41.8 -Hypokalemia -Hypoxia, secondary to symptomatic anemia. Plan: Continue on current medication regime ,monitoring and symptomatic treatment. Transfuse another unit of packed RBCs for symptomatic anemia. gentle IV fluid hydration, PPI,. Awaiting EGD and colonoscopy. Close monitoring of CBC, PT/INR, electrolytes. The impression and plan of care has been dictated as directed. : I performed a history and examination of this patient, discussed the same with the dictator. I agree with the dictator's note ,documented as a scribe. Any additional findings or plans will be noted.
--- NOTE | 2018-01-22 17:11 | P.PN ---
Subjective Progress Note Date: 01/22/18 Principal diagnosis: anemia still with dark tarry stools, loose. weak, Fatigued and concerned about having to go to rehab. Objective - Vital Signs Vital signs: Vital Signs Temp 97.1 F L 01/22/18 16:18 Pulse 81 01/22/18 16:18 Resp 18 01/22/18 14:44 BP 111/56 01/22/18 16:18 Pulse Ox 97 01/22/18 16:18 Intake & Output 01/21/18 01/22/18 01/22/18 18:59 06:59 18:59 Intake Total 940 4600 200 Balance 940 4600 200 Weight 134.8 kg 134.8 kg Intake: IV 4000 200 golytely 4000 Oral 940 600 Blood Product 0 Rc As-1 Unit 0 [id number] Other: Voiding Method Bedside Commode Bedside Commode Bedside Commode Urinal Urinal # Voids 2 1 # Bowel Movements 3 - Exam Constitutional General appearance: cooperative, no acute distress, obese - EENT Eyes: anicteric sclerae, EOMI, normal appearance ENT: hearing grossly normal, normal oropharynx - Neck Neck: no lymphadenopathy - Respiratory Respiratory: bilateral: CTA - Cardiovascular Rhythm: regular Heart sounds: normal: S1, S2 leg Peripheral Edema: bilateral: Trace - Gastrointestinal General gastrointestinal: no absent bowel sounds, no decreased bowel sounds, no distended, no hepatomegaly, no hyperactive bowel sounds, normal bowel sounds, no organomegaly, no rigid, no scaphoid, soft, no splenomegaly, no tenderness, no umbilical hernia, no ventral hernia - Neurologic Neurologic: CNII-XII intact - Musculoskeletal Musculoskeletal: generalized weakness, strength equal bilaterally - Psychiatric Psychiatric: A&O x's 3, appropriate affect, intact judgment & insig - Labs CBC & Chem 7: 01/22/18 05:35 01/22/18 11:55 Labs: Abnormal Lab Results - Last 24 Hours (Table) 01/20/18 01/21/18 01/22/18 Range/Units 10:03 19:05 05:35 RBC 2.66 L (4.30-5.90) m/uL Hgb 7.5 L (13.0-17.5) gm/dL Hct 23.4 L (39.0-53.0) % RDW 21.2 H (11.5-15.5) % Eosinophils # (Manual) 0.87 H (0-0.7) k/uL INR (<1.2) Sodium (137-145) mmol/L Potassium (3.5-5.1) mmol/L Calcium (8.4-10.2) mg/dL Total Bilirubin (0.2-1.3) mg/dL Alkaline Phosphatase (38-126) U/L Troponin I 0.047 H* (0.000-0.034) ng/mL Total Protein (6.3-8.2) g/dL Albumin (3.5-5.0) g/dL Crossmatch See Detail 01/22/18 01/22/18 01/22/18 Range/Units 05:35 05:35 11:55 RBC (4.30-5.90) m/uL Hgb (13.0-17.5) gm/dL Hct (39.0-53.0) % RDW (11.5-15.5) % Eosinophils # (Manual) (0-0.7) k/uL INR 1.2 H (<1.2) Sodium 135 L (137-145) mmol/L Potassium 3.2 L 3.4 L (3.5-5.1) mmol/L Calcium 7.7 L (8.4-10.2) mg/dL Total Bilirubin 1.4 H (0.2-1.3) mg/dL Alkaline Phosphatase 225 H (38-126) U/L Troponin I (0.000-0.034) ng/mL Total Protein 6.0 L (6.3-8.2) g/dL Albumin 2.4 L (3.5-5.0) g/dL Crossmatch Microbiology - Last 24 Hours (Table) 01/20/18 14:38 Blood Culture - Preliminary Blood No Growth after 48 hours 01/20/18 15:03 Urine Culture - Preliminary Urine,Voided Gram Neg Bacilli Assessment and Plan Plan: CT scan - abdomen: report reviewed CT scan - pelvis: report reviewed Assessment and Plan (1) Anemia Narrative/Plan: Transfuse to keep Hgb>7. Previous work has been negative for correctable cause. More studies pending, GI to seen and evaluate pt - Planning on Endoscopy soon - Hemoglobin 7.4 today - Loose BMs still dark/tarry per patient and - Will recheck Iron studies, maybe room for IV iron Supplementation Current Visit: Yes Status: Acute Priority: High Code(s): D64.9 - ANEMIA, UNSPECIFIED SNOMED Code(s): 348791509 (2) Coagulopathy Narrative/Plan: Suspect due to vit K deficiency secondary to diarrhea, poor diet. Vit K given on 01/21/18. Agree with cont to monitor INR and adm parenteral vit K PRN - INR 1.2 today, improved. Current Visit: Yes Status: Acute Priority: High Code(s): D68.9 - COAGULATION DEFECT, UNSPECIFIED SNOMED Code(s): 54988363 (3) Diarrhea Narrative/Plan: Chronic, GI work up pending. - Concern for GI Blood Loss Current Visit: Yes Status: Acute Priority: High Code(s): R19.7 - DIARRHEA , UNSPECIFIED SNOMED Code(s): 66713919
[2018-01-23 02:11] LABS: Folate, Serum 16.2 ng/mL; Iron Saturation 14.04 (15.00-50.00)
[2018-01-23 02:42] LABS: Vitamin B12 >4000.0 pg/mL (211-911)
[2018-01-23 04:37] LABS: Anisocytosis Moderate; HGB 7.8 gm/dL (13.0-17.5); Hypochromasia Marked; MCH 27.7 pg (25.0-35.0); MCHC 31.4 g/dL (31.0-37.0); MCV 88.2 fL (80.0-100.0); Mean Platelet Volume 7.1; Platelet Count 259 k/uL (150-450); Poikilocytosis Marked; RBC 2.84 m/uL (4.30-5.90); RDW 20.8 % (11.5-15.5); WBC 7.6 k/uL (3.8-10.6)
[2018-01-23 04:45] LABS: INR 1.3 (<1.2); Prothrombin Time 12.4 sec (9.0-12.0)
[2018-01-23 04:56] LABS: ALT 30 U/L (21-72); AST 26 U/L (17-59); Albumin 2.3 g/dL (3.5-5.0); Alkaline Phosphatase 211 U/L (38-126); Anion Gap 11 mmol/L; Blood Urea Nitrogen 14 mg/dL (9-20); Calcium 7.2 mg/dL (8.4-10.2); Carbon Dioxide 21 mmol/L (22-30); Chloride 102 mmol/L (98-107); Glucose 90 mg/dL (74-99); Potassium 3.4 mmol/L (3.5-5.1); Sodium 134 mmol/L (137-145); Total Bilirubin 1.4 mg/dL (0.2-1.3); Total Protein 5.8 g/dL (6.3-8.2)
[2018-01-23] MEDS ORDERED: Potassium Replacement Protocol 1 EACH MISC MISCELLANE PRN (05:03)
[2018-01-23 05:12] LABS: Band Neutrophils % 1 %; Eosinophils # (M) 0.91 k/uL (0-0.7); Lymphocytes # (M) 1.44 k/uL (1.0-4.8); Monocytes # (M) 0.91 k/uL (0-1.0); Neutrophils % (M) 56 %; Nucleated Red Blood Cells 0 /100 WBC (0-0); Polychromasia Present; Total Cells Counted 100
[2018-01-23] MEDS: POTASSIUM CHLORIDE ER 20 MEQ TAB.ER PO SCH ×2 (06:44→08:51)
[2018-01-23] MEDS: FORMOTEROL FUMARATE 20 MCG/2 ML NEBU INHALATION SCH ×2 (07:59→21:42)
[2018-01-23] MEDS: IPRATROPIUM 0.5 MG/2.5 ML NEBU INHALATION SCH ×4 (07:59→21:42)
[2018-01-23] MEDS: METOPROLOL TARTRATE 25 MG TAB PO SCH ×2 (08:46→19:42)
[2018-01-23] MEDS: TRIAMTERENE-HCTZ 37.5-25MG 1 EACH CAP PO SCH (08:46)
[2018-01-23] MEDS: amLODIPine 5 MG TAB PO SCH (08:46)
[2018-01-23] MEDS: PANTOPRAZOLE 40 MG/10 ML VIAL IVP SCH ×2 (08:47→19:42)
[2018-01-23] MEDS: HEPARIN SODIUM,PORCINE 5,000 UNIT/ML 1 ML VIAL SQ SCH ×2 (08:47→19:42)
[2018-01-23] MEDS: PIPERACILLIN-TAZOBACTAM 3.375 GM in DEXTROSE/WATER 1 50ML.BAG IVPB SCH ×3 (09:20→23:03)
[2018-01-23] MEDS: PHYTONADIONE ORAL 5 MG/5 ML ORAL.SYRG PO SCH (11:13)
--- NOTE | 2018-01-23 17:34 | PN ---
PROGRESS NOTE DATE OF SERVICE: This 77-year-old gentleman who was admitted with severe weakness and possible upper GI bleeding underwent endoscopy by Dr. Roy. Endoscopy showed a 2 cm broad-based polyp in the duodenal bulb with a deep central ulceration with no active bleeding at the time. Multiple biopsies were noted. Colonoscopy showed a 1 cm ascending colon polyp, also. The patient is being closely monitored. Currently the hemoglobin is 7.8, INR is 1.3, potassium 3.4. Past medical history reviewed. REVIEW OF SYSTEMS: CARDIOVASCULAR SYSTEM: No angina, palpitations. RESPIRATORY SYSTEM: No cough, hemoptysis. GI: As mentioned earlier. : No dysuria or retention. NERVOUS SYSTEM: No numbness, weakness. CURRENT MEDICATIONS: Reviewed. They include: 1. [place] 5 mg q.6 p.r.n. 2. Ventolin q.i.d. and p.r.n. 3. Norvasc 5 mg p.o. daily. 4. Perforomist 20 mg b.i.d. 5. Heparin 5000 units subcutaneously b.i.d. 6. Atrovent 2.5 q.i.d. 7. Lopressor 20 mg p.o. b.i.d. 8. Replacement protocols. 9. Protonix 40 mg IV b.i.d. 10.Vitamin K 5 mg p.o. daily. 11.Zosyn 3.375 IV q.8. 12.Dyazide 1 tablet p.o. daily. PHYSICAL EXAMINATION: Patient is alert and oriented x3. Pulse 95, blood pressure 131/68, respiration 18, temperature 97.7, pulse ox 93% on 2 L. HEENT: Conjunctivae normal. Oral mucosa moist. NECK: No jugular venous distention. No carotid bruit. No lymph node enlargement. CARDIOVASCULAR SYSTEM: S1, S2 muffled. RESPIRATORY SYSTEM: Breath sounds diminished at the bases. Scattered rhonchi and crackles. ABDOMEN: Soft, nontender, obese. No mass palpable. LEGS: No edema. No swelling. NERVOUS SYSTEM: Higher functions as mentioned earlier. Moves all 4 limbs. No focal motor or sensory deficit. LYMPHATICS: No lymph node palpable in neck, axillae or groin. SKIN: No ulcer, rash, bleeding. LABS: WBC 7.6, hemoglobin 7.8, sodium 134, potassium 3.4. ASSESSMENT: 1. Severe weakness; possible upper gastrointestinal bleeding with acute duodenal ulcer with a possible polyp with acute blood loss anemia. 2. Mild diverticulitis or colitis. 3. 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 4. Diarrhea of undetermined etiology. 5. History of recent weight loss. 6. Acute urinary tract infection with sepsis, present on admission. 7. Leukocytosis secondary to above. 8. Severe dehydration. 9. Troponin 0.085, indeterminate. 10.Coagulopathy. 11.Morbid obesity with body mass index 41.8. 12.Hypokalemia. 13.Hypoxia secondary to symptomatic anemia. 14.Urinary tract infection with Escherichia coli. RECOMMENDATIONS AND DISCUSSION: I recommend to continue current medications, continue to monitor, symptomatic treatment. PT/OT evaluation. I would also recommend continued monitoring and repeat labs, potassium supplementation. Guarded prognosis because of multiple complex medical issues. Further recommendations to follow. See orders for further details. We will follow the patient closely with multiple consultants. PATRICIA / LOC: [id number] /
[2018-01-24 06:48] LABS: INR 1.2 (<1.2); Prothrombin Time 11.7 sec (9.0-12.0)
[2018-01-24 06:57] LABS: Anisocytosis Moderate; Basophils % (A) 1 %; Eosinophils # (A) 0.9 k/uL (0-0.7); Eosinophils % (A) 13 %; HCT 26.6 % (39.0-53.0); HGB 8.2 gm/dL (13.0-17.5); Hypochromasia Marked; Lymphocytes # (A) 1.1 k/uL (1.0-4.8); Lymphocytes % (A) 16 %; MCH 26.8 pg (25.0-35.0); MCHC 30.7 g/dL (31.0-37.0); MCV 87.2 fL (80.0-100.0); Mean Platelet Volume 7.5; Monocytes # (A) 0.7 k/uL (0-1.0); Monocytes % (A) 10 %; Neutrophils # (A) 3.6 k/uL (1.3-7.7); Neutrophils % (A) 55 %; Platelet Count 263 k/uL (150-450); Poikilocytosis Moderate; RBC 3.05 m/uL (4.30-5.90); RDW 20.9 % (11.5-15.5); WBC 6.5 k/uL (3.8-10.6)
[2018-01-24 07:03] LABS: Albumin 2.4 g/dL (3.5-5.0); Calcium 7.8 mg/dL (8.4-10.2); Potassium 3.7 mmol/L (3.5-5.1); Total Bilirubin 1.2 mg/dL (0.2-1.3)
[2018-01-24] MEDS: IPRATROPIUM 0.5 MG/2.5 ML NEBU INHALATION SCH ×4 (07:35→19:07)
[2018-01-24] MEDS: FORMOTEROL FUMARATE 20 MCG/2 ML NEBU INHALATION SCH ×2 (07:35→19:07)
[2018-01-24 07:57] LABS: Polychromasia Present
[2018-01-24] MEDS: HEPARIN SODIUM,PORCINE 5,000 UNIT/ML 1 ML VIAL SQ SCH ×2 (08:16→21:20)
[2018-01-24] MEDS: TRIAMTERENE-HCTZ 37.5-25MG 1 EACH CAP PO SCH (08:17)
[2018-01-24] MEDS: METOPROLOL TARTRATE 25 MG TAB PO SCH ×2 (08:17→21:20)
[2018-01-24] MEDS: amLODIPine 5 MG TAB PO SCH (08:17)
[2018-01-24] MEDS: PANTOPRAZOLE 40 MG/10 ML VIAL IVP SCH ×2 (08:17→21:20)
[2018-01-24] MEDS: PIPERACILLIN-TAZOBACTAM 3.375 GM in DEXTROSE/WATER 1 50ML.BAG IVPB SCH ×3 (08:20→23:41)
[2018-01-24] MEDS: PHYTONADIONE ORAL 5 MG/5 ML ORAL.SYRG PO SCH (11:11)
[2018-01-24 11:25] LABS: Glucose,Whole Blood 143 mg/dL (75-99)
--- NOTE | 2018-01-24 13:23 | XR ---
EXAMINATION TYPE: XR skull complete , 4 VIEWS DATE OF EXAM ORDERED: 01/24/2018 HISTORY: lytic lesions. COMPARISON: None. FINDINGS: No fracture or osseous destructive lesion is seen. The bony calvarium appears intact. IMPRESSION: NORMAL SKULL.
[2018-01-24 16:29] LABS: Glucose,Whole Blood 112 mg/dL (75-99)
[2018-01-24] MEDS ORDERED: LOPERAMIDE 2 MG CAP PO PRN (18:07)
--- NOTE | 2018-01-24 21:59 | PN ---
PROGRESS NOTE DATE OF SERVICE: 01/24/2018. INTERVAL HISTORY: This 77-year-old gentleman who was admitted with severe weakness, also had a possible upper gastrointestinal bleeding. Dr. Roy performed EGD showed a 2 cm broad- based polyp in the duodenal bulb ulceration. Multiple biopsies were taken. The patient also had osteolytic lesions in the CT scan of the spine also. A bone scan has been ordered. PAST MEDICAL HISTORY: Reviewed. REVIEW OF SYSTEMS: CARDIOVASCULAR: No angina or palpitations. RESPIRATORY: As mentioned earlier. GI: As mentioned earlier. : No dysuria. CENTRAL NERVOUS SYSTEM: As mentioned earlier. CURRENT MEDICATIONS ARE: Reviewed and include: 1. [place] 5 mg q6h p.r.n. 2. Ventolin q.i.d. and p.r.n. 3. Norvasc 5 mg b.i.d. 4. Perforomist 20 mg b.i.d. 6. Atrovent q.i.d. 7. Lopressor 25 mg b.i.d. 8. Replacement protocol. 9. Narcan. 10.Protonix 40 mg b.i.d. 11.Vitamin K 5 mg p.o. daily. 12.Zosyn 3.375 IV q8h. PHYSICAL EXAM: Patient is alert, oriented x3. The pulse is 89, blood pressure 108/58, respiration 20, temperature 97.9, pulse ox 97% on room air. HEENT: Conjunctivae normal. Oral mucosa moist. Neck is no jugular venous distention. No carotid bruit. No lymph node enlargement. Cardiovascular system: S1, S2 muffled. Respiratory: Breath sounds diminished in the bases. Bilateral scattered rhonchi and crackles. ABDOMEN: Soft, nontender. Legs no edema no swelling. Central nervous system: No focal deficits. LABS: WBC 6.9, hemoglobin is 8.2, INR is 1.2, glucose 143, alkaline phosphatase 234. C- reactive protein 33.8. ESR is 121. ASSESSMENT: 1. Severe weakness, possible upper gastrointestinal bleeding with acute duodenal ulcer with possible polyp with acute blood loss anemia. 2. Mild diverticulitis and colitis. 3. Possible bone metastasis on the lumbar spine, thoracic spine, pelvis per CT scan. 4. Diarrhea of undetermined etiology. 5. History of recent weight loss. 6. Acute urinary tract infection with sepsis present on admission. 7. Leukocytosis secondary to above. 8. Severe dehydration. 9. Troponin 0.85 indeterminate. 10.Coagulopathy. 11.Morbid obesity with body mass index of 41.8. 12.Hypokalemia. 13.Hypoxia secondary to some hypoxemia. 14.Urinary tract infection with E coli. RECOMMENDATIONS AND DISCUSSION: Recommend to continue current medications, monitor and symptomatic treatment. Otherwise, at this time, I recommend continue the PT/OT evaluation. Also recommend serum protein electrophoreses and bone scan also. Otherwise, continue the rest of the medications. The patient is on IV Zosyn at this time. C difficile has been negative. I would use Imodium on a p.r.n. basis and continue to monitor. Further recommendations to follow. Will discuss with Hematology/Oncology. PATRICIA / TAMARAN: [id number] / RITA
[2018-01-25 08:03] LABS: Anisocytosis Moderate; Basophils # (A) 0.1 k/uL (0-0.2); Basophils % (A) 1 %; Eosinophils # (A) 0.9 k/uL (0-0.7); Eosinophils % (A) 12 %; HCT 27.8 % (39.0-53.0); HGB 8.6 gm/dL (13.0-17.5); Hypochromasia Marked; Lymphocytes % (A) 14 %; MCH 27.6 pg (25.0-35.0); MCHC 30.9 g/dL (31.0-37.0); MCV 89.1 fL (80.0-100.0); Mean Platelet Volume 7.2; Monocytes # (A) 0.7 k/uL (0-1.0); Monocytes % (A) 10 %; Neutrophils # (A) 4.4 k/uL (1.3-7.7); Neutrophils % (A) 61 %; Platelet Count 240 k/uL (150-450); Poikilocytosis Moderate; RBC 3.12 m/uL (4.30-5.90); RDW 21.2 % (11.5-15.5); WBC 7.2 k/uL (3.8-10.6)
[2018-01-25 08:05] LABS: INR 1.3 (<1.2)
[2018-01-25 08:13] LABS: Albumin 2.4 g/dL (3.5-5.0); Calcium 7.7 mg/dL (8.4-10.2); Potassium 3.9 mmol/L (3.5-5.1); Total Bilirubin 1.2 mg/dL (0.2-1.3); Total Protein 6.1 g/dL (6.3-8.2)
[2018-01-25] MEDS: IPRATROPIUM 0.5 MG/2.5 ML NEBU INHALATION SCH ×3 (08:26→16:22)
[2018-01-25] MEDS: FORMOTEROL FUMARATE 20 MCG/2 ML NEBU INHALATION SCH (08:26)
[2018-01-25] MEDS: PIPERACILLIN-TAZOBACTAM 3.375 GM in DEXTROSE/WATER 1 50ML.BAG IVPB SCH ×2 (09:07→16:19)
[2018-01-25] MEDS: amLODIPine 5 MG TAB PO SCH (09:23)
[2018-01-25] MEDS: PANTOPRAZOLE 40 MG/10 ML VIAL IVP SCH ×2 (09:23→20:45)
[2018-01-25] MEDS: HEPARIN SODIUM,PORCINE 5,000 UNIT/ML 1 ML VIAL SQ SCH ×2 (09:23→20:45)
[2018-01-25] MEDS: METOPROLOL TARTRATE 25 MG TAB PO SCH ×2 (09:23→20:45)
[2018-01-25] MEDS: TRIAMTERENE-HCTZ 37.5-25MG 1 EACH CAP PO SCH (09:24)
[2018-01-25 11:30] LABS: Protein, Total 6.1 g/dL (6.2-8.2)
[2018-01-25 14:22] VITALS: BMI 41.8
[2018-01-25] MEDS: PHYTONADIONE ORAL 5 MG/5 ML ORAL.SYRG PO SCH (16:19)
--- NOTE | 2018-01-25 16:25 | NM ---
EXAMINATION TYPE: NM bone scan whole body DATE OF EXAM: 01/25/2018 COMPARISON: Correlation CT 01/20/2018 HISTORY: 77-year-old male with previous abnormal diagnostic exam, assess for metastatic disease. Destini ent with trauma. Technique: Delayed whole-body scanning was performed following the injection of 24.6 mCi Tc 99m MDP. Whole-body anterior and posterior images acquired 4 hours post injection. FINDINGS: There is mild generalized diffuse increased tracer activity throughout the osseous structures but mor e so in periarticular region such as at the sternoclavicular joints, shoulders, and knees. No suspici ous focal areas of tracer activity such as within the ribs or spine or calvarium to further support o sseous metastatic disease. IMPRESSION: Generalized mild increased tracer activity throughout the osseous structures more so in some periarti cular regions such as the shoulders and knees. Consider metabolic causes (such as hyperparathyroidism , hyperthyroidism), hematologic etiologies (such as myelofibrosis or mastocytosis), or infiltrative n eoplasm such as diffuse osteosclerosing myeloma which is rare or lymphoma. Further workup with labor atory assessment and possible bone marrow aspiration can be considered.
--- NOTE | 2018-01-25 18:51 | PN ---
PROGRESS NOTE DATE OF SERVICE: 01/25/2018. INTERVAL HISTORY: This 77-year-old gentleman admitted with weakness also had possible upper GI bleed. The patient had a polyp in the duodenum, EGD and biopsies taken at this time. The patient also had multiple lesions in the bone and bone scan has been also been noted. No chest pain. No palpitations. No fever. PHYSICAL EXAM: Alert and oriented x3. The pulse is 90, blood pressure 116/62, respiration 20, temperature normal, pulse ox 98% on room air. HEENT: Conjunctivae normal. Oral mucosa moist. Neck is no jugular venous distention. No carotid bruit. No lymph node enlargement. Cardiovascular System: S1, S2 muffled. Respiration: Breath sounds diminished in the bases. A few scattered rhonchi. No crackles. ABDOMEN: Soft, nontender. No mass palpable. Obese. LEGS: No edema. No swelling. CENTRAL NERVOUS SYSTEM: Mild diffuse weakness. LAB STUDIES: WBC 7.5, hemoglobin is 8.6, INR 1.3, albumin is 2.4. ASSESSMENT: 1. Severe weakness and possible upper gastrointestinal bleeding with acute blood loss anemia with acute duodenal ulcer with possible polyp in the duodenum, status post EGD. 2. Mild diverticulitis and colitis. 3. Possible bone metastasis in the lumbar spine, thoracic spine, pelvis, hip per CT scan. 4. Diarrhea of undetermined etiology. 5. History of recent weight loss. 6. Acute urinary tract infection with sepsis present on admission. 7. Leukocytosis secondary to above. 8. Severe dehydration present on admission. 9. Troponin 0.085, indeterminate. 10.Coagulopathy. 11.Morbid obesity for body mass index of 41.8. 12.Hypokalemia. 13.Urinary tract infection with E coli. RECOMMENDATIONS AND DISCUSSION: Recommend to continue current medications, management and symptomatic treatment, current medications. I reviewed the bone scan. Continue the rest of medications. PT/OT evaluation, possible ECF rehab. Guarded prognosis. Further recommendations to follow. Discussed with Dr. Nelson. The patient also had extensive evaluation and investigations at [facility] recently. Prognosis guarded. Further recommendations to follow. MMODL / IJN: [id number] /
[2018-01-26] MEDS: PIPERACILLIN-TAZOBACTAM 3.375 GM in DEXTROSE/WATER 1 50ML.BAG IVPB SCH ×3 (00:48→18:09)
[2018-01-26] MEDS: IPRATROPIUM 0.5 MG/2.5 ML NEBU INHALATION SCH ×5 (02:11→20:48)
[2018-01-26] MEDS: FORMOTEROL FUMARATE 20 MCG/2 ML NEBU INHALATION SCH ×3 (02:11→20:48)
[2018-01-26 07:39] LABS: INR 1.2 (<1.2); Prothrombin Time 11.4 sec (9.0-12.0)
[2018-01-26 07:41] LABS: ALT 22 U/L (21-72); AST 19 U/L (17-59); Albumin 2.3 g/dL (3.5-5.0); Alkaline Phosphatase 238 U/L (38-126); Anion Gap 7 mmol/L; Blood Urea Nitrogen 9 mg/dL (9-20); Calcium 7.7 mg/dL (8.4-10.2); Carbon Dioxide 25 mmol/L (22-30); Chloride 104 mmol/L (98-107); Glucose 94 mg/dL (74-99); Potassium 3.9 mmol/L (3.5-5.1); Sodium 136 mmol/L (137-145); Total Bilirubin 1.2 mg/dL (0.2-1.3); Total Protein 5.9 g/dL (6.3-8.2)
[2018-01-26 07:58] LABS: Anisocytosis Moderate; Basophils % (A) 1 %; Eosinophils # (A) 0.7 k/uL (0-0.7); Eosinophils % (A) 13 %; HCT 26.7 % (39.0-53.0); HGB 8.2 gm/dL (13.0-17.5); Hypochromasia Marked; Lymphocytes % (A) 18 %; MCH 27.1 pg (25.0-35.0); MCHC 30.7 g/dL (31.0-37.0); MCV 88.3 fL (80.0-100.0); Mean Platelet Volume 8.1; Monocytes # (A) 0.6 k/uL (0-1.0); Monocytes % (A) 10 %; Neutrophils # (A) 3.1 k/uL (1.3-7.7); Neutrophils % (A) 55 %; Platelet Count 221 k/uL (150-450); Poikilocytosis Moderate; RBC 3.02 m/uL (4.30-5.90); RDW 20.7 % (11.5-15.5); WBC 5.6 k/uL (3.8-10.6)
[2018-01-26] MEDS: METOPROLOL TARTRATE 25 MG TAB PO SCH ×2 (09:07→21:42)
[2018-01-26] MEDS: TRIAMTERENE-HCTZ 37.5-25MG 1 EACH CAP PO SCH (09:07)
[2018-01-26] MEDS: HEPARIN SODIUM,PORCINE 5,000 UNIT/ML 1 ML VIAL SQ SCH ×2 (09:07→21:41)
[2018-01-26] MEDS: PANTOPRAZOLE 40 MG/10 ML VIAL IVP SCH ×2 (09:07→21:41)
[2018-01-26] MEDS: amLODIPine 5 MG TAB PO SCH (09:08)
[2018-01-26 10:45] LABS: Albumin 2.38 g/dL (3.80-4.90)
--- NOTE | 2018-01-26 11:19 | P.PN ---
Subjective Progress Note Date: 01/26/18 Principal diagnosis: Diarrhea anemia GI bleed Status post EGD colonoscopy 4 days ago for evaluation of anemia and diarrhea GI bleed unintentional weight loss with evidence of 2 cm broad-based polyp in the duodenal bulb with ulceration no active bleeding neoplasm could not be excluded biopsies pending. Colonoscopy 1 cm ascending colon polyp/polypectomy scattered diverticulosis. Hemoglobin 8.2. Tolerating liquid diet. Denies abdominal pain. Afebrile. Objective - Vital Signs Vital signs: Vital Signs Temp 98.7 F 01/26/18 07:00 Pulse 85 01/26/18 07:00 Resp 12 01/26/18 07:00 BP 104/58 01/26/18 07:00 Pulse Ox 97 01/26/18 07:00 Intake & Output 01/25/18 01/26/18 01/26/18 18:59 06:59 18:59 Intake Total 240 890 Output Total 4 Balance 236 890 Weight 136.078 kg Intake: Intake, IV Titration 100 Amount Piperacillin-Tazobactam 3 100 .375 gm In Dextrose/Water 1 50ml.bag @ 12.5 mls/hr IVPB Q8HR [facility] Rx#: [id number] Oral 240 790 Output: Stool 4 Other: Voiding Method Bedside Commode Urinal # Voids 1 3 # Bowel Movements 1 1 - Exam General appearance: The patient is alert, oriented, in no acute distress. HET: Head is normocephalic and atraumatic. Pupils are equal and reactive. Oropharynx is clear without lesions. Neck: Supple without lymphadenopathy. Trachea midline. Heart: S1 S2. Regular rate and rhythm. Lungs: No crackles or wheezes are heard. Abdomen: Soft, nontender, nondistended with bowel sounds. No peritoneal signs. No palpable organomegaly or masses. Extremities: Normal skin color and turgor. No cyanosis, rash, ulceration, clubbing, or edema. Radial and pedal pulses are 2/4 bilaterally. Neurological: No focal deficits. Strength and sensation are grossly intact. - Labs CBC & Chem 7: 01/26/18 06:52 01/26/18 06:52 Labs: Abnormal Lab Results - Last 24 Hours (Table) 01/24/18 01/26/18 01/26/18 Range/Units 05:43 06:52 06:52 RBC 3.02 L (4.30-5.90) m/uL Hgb 8.2 L (13.0-17.5) gm/dL Hct 26.7 L (39.0-53.0) % MCHC 30.7 L (31.0-37.0) g/dL RDW 20.7 H (11.5-15.5) % INR (<1.2) Sodium 136 L (137-145) mmol/L Calcium 7.7 L (8.4-10.2) mg/dL Alkaline Phosphatase 238 H (38-126) U/L Total Protein 5.9 L (6.3-8.2) g/dL Total Protein (PEP) 6.1 L (6.2-8.2) g/dL Albumin 2.3 L (3.5-5.0) g/dL Albumin (PEP) 2.38 L (3.80-4.90) g/dL Vjgbk-3-Veyomnoit 0.47 H (0.10-0.40) g/dL Beta Globulins 0.44 L (0.60-1.30) g/dL Gamma Globulins 2.10 H (0.70-1.50) g/dL 01/26/18 Range/Units 06:52 RBC (4.30-5.90) m/uL Hgb (13.0-17.5) gm/dL Hct (39.0-53.0) % MCHC (31.0-37.0) g/dL RDW (11.5-15.5) % INR 1.2 H (<1.2) Sodium (137-145) mmol/L Calcium (8.4-10.2) mg/dL Alkaline Phosphatase (38-126) U/L Total Protein (6.3-8.2) g/dL Total Protein (PEP) (6.2-8.2) g/dL Albumin (3.5-5.0) g/dL Albumin (PEP) (3.80-4.90) g/dL Rmnca-5-Mfyxksdfe (0.10-0.40) g/dL Beta Globulins (0.60-1.30) g/dL Gamma Globulins (0.70-1.50) g/dL Microbiology - Last 24 Hours (Table) 01/20/18 14:38 Blood Culture - Preliminary Blood No Growth after 120 hours Assessment and Plan (1) GI bleed Narrative/Plan: Status post EGD colonoscopy with findings of a 2 cm broad-based polyp in the duodenal bulb with deep central ulceration status post biopsies to rule out neoplasm. Colonoscopy ascending colon polypectomy scattered sigmoid diverticulosis. Current Visit: Yes Status: Acute Code(s): K92.2 - GASTROINTESTINAL HEMORRHAGE, UNSPECIFIED SNOMED Code(s): 55698809 (2) Acute blood loss anemia Current Visit: Yes Status: Acute Code(s): D62 - ACUTE POSTHEMORRHAGIC ANEMIA SNOMED Code(s): 389828444 (3) Unintentional weight loss Current Visit: Yes Status: Acute Code(s): R63.4 - ABNORMAL WEIGHT LOSS SNOMED Code(s): 659259064 (4) Diarrhea Current Visit: Yes Status: Acute Priority: High Code(s): R19.7 - DIARRHEA , UNSPECIFIED SNOMED Code(s): 97095707 (5) Coagulopathy Current Visit: Yes Status: Acute Priority: High Code(s): D68.9 - COAGULATION DEFECT, UNSPECIFIED SNOMED Code(s): 80607438 (6) Elevated alkaline phosphatase level Current Visit: Yes Status: Acute Code(s): R74.8 - ABNORMAL LEVELS OF OTHER SERUM ENZYMES SNOMED Code(s): 295414949 Plan: 1. Await biopsies. Advance GI soft diet. Protonix 40 mg twice daily. Follow- up in office with Dr. Roy in 2-3 weeks for reevaluation. We'll follow as needed. Assessment and plan a care discussed with Dr. De La Cruz
[2018-01-26] MEDS: PHYTONADIONE ORAL 5 MG/5 ML ORAL.SYRG PO SCH (13:18)
--- NOTE | 2018-01-26 13:58 | P.PN ---
Subjective Progress Note Date: 01/26/18 Principal diagnosis: anemia, profound unintentional weight loss Patient seen today in follow-up. He is sitting up in a chair. States that his abdomen has a generalized, dull ache, denies pain, he is having 4-5 diarrhea stools a day still, no blood or mucus that he can tell, no significant pain or cramping with bowel movements. Patient is being treated for an Escherichia coli urinary tract infection, he denies any dysuria or hematuria. We reviewed his nuclear medicine bone scan, his duodenal biopsy is still pending. Symptomatic anemic, shortness of breath on exertion. Objective - Vital Signs Vital signs: Vital Signs Temp 98.7 F 01/26/18 07:00 Pulse 80 01/26/18 11:31 Resp 12 01/26/18 07:00 BP 104/58 01/26/18 07:00 Pulse Ox 97 01/26/18 07:00 Intake & Output 01/25/18 01/26/18 01/26/18 18:59 06:59 18:59 Intake Total 240 890 Output Total 4 Balance 236 890 Weight 136.078 kg Intake: Intake, IV Titration 100 Amount Piperacillin-Tazobactam 3 100 .375 gm In Dextrose/Water 1 50ml.bag @ 12.5 mls/hr IVPB Q8HR [facility] Rx#: [id number] Oral 240 790 Output: Stool 4 Other: Voiding Method Bedside Commode Urinal # Voids 1 3 # Bowel Movements 1 1 - Constitutional General appearance: Present: cooperative, mild distress, no acute distress - EENT Eyes: Present: anicteric sclerae - Respiratory Respiratory: bilateral: CTA - Cardiovascular Heart sounds: normal: S1, S2 - Gastrointestinal General gastrointestinal: Present: normal bowel sounds, soft - Integumentary Integumentary: Present: pale - Neurologic Neurologic: Present: CNII-XII intact - Musculoskeletal Musculoskeletal: Present: generalized weakness - Psychiatric Psychiatric: Present: A&O x's 3, appropriate affect, intact judgment & insight - Labs CBC & Chem 7: 01/26/18 06:52 01/26/18 06:52 Labs: Abnormal Lab Results - Last 24 Hours (Table) 01/24/18 01/26/18 01/26/18 Range/Units 05:43 06:52 06:52 RBC 3.02 L (4.30-5.90) m/uL Hgb 8.2 L (13.0-17.5) gm/dL Hct 26.7 L (39.0-53.0) % MCHC 30.7 L (31.0-37.0) g/dL RDW 20.7 H (11.5-15.5) % INR (<1.2) Sodium 136 L (137-145) mmol/L Calcium 7.7 L (8.4-10.2) mg/dL Alkaline Phosphatase 238 H (38-126) U/L Total Protein 5.9 L (6.3-8.2) g/dL Albumin 2.3 L (3.5-5.0) g/dL Albumin (PEP) 2.38 L (3.80-4.90) g/dL Crfuy-1-Pesafmwat 0.47 H (0.10-0.40) g/dL Beta Globulins 0.44 L (0.60-1.30) g/dL Gamma Globulins 2.10 H (0.70-1.50) g/dL 01/26/18 Range/Units 06:52 RBC (4.30-5.90) m/uL Hgb (13.0-17.5) gm/dL Hct (39.0-53.0) % MCHC (31.0-37.0) g/dL RDW (11.5-15.5) % INR 1.2 H (<1.2) Sodium (137-145) mmol/L Calcium (8.4-10.2) mg/dL Alkaline Phosphatase (38-126) U/L Total Protein (6.3-8.2) g/dL Albumin (3.5-5.0) g/dL Albumin (PEP) (3.80-4.90) g/dL Bxiho-3-Bvtvwllzb (0.10-0.40) g/dL Beta Globulins (0.60-1.30) g/dL Gamma Globulins (0.70-1.50) g/dL Microbiology - Last 24 Hours (Table) 01/20/18 14:38 Blood Culture - Preliminary Blood No Growth after 120 hours Assessment and Plan (1) Anemia Narrative/Plan: CBC is being monitored daily. No transfusion necessary today. Transfuse only to keep hemoglobin greater than 7. Anemia of inflammation, ferritin is significantly elevated at greater than 600. Endoscopy completed, biopsy results pending Current Visit: Yes Status: Acute Priority: High Code(s): D64.9 - ANEMIA, UNSPECIFIED SNOMED Code(s): 226699087 (2) Coagulopathy Narrative/Plan: Suspect due to vit K deficiency secondary to diarrhea, poor diet. Vit K is being given orally, INR 1.2. Cont to monitor INR Current Visit: Yes Status: Acute Priority: High Code(s): D68.9 - COAGULATION DEFECT, UNSPECIFIED SNOMED Code(s): 92845872 (3) Diarrhea Narrative/Plan: Persistent, 3-4 stools a day. Status post colonoscopy with diverticulosis and and polypectomy as well as ulcerated duodenal bulb polyp excised, biopsy results pending. 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 Bone scan report reviewed with Dr. Nelson. Suspecting more of a metabolic cause for the results as patient has had nearly 50 pound weight loss in only a few months with persistent diarrhea and very poor appetite/oral intake. CEA less than 0.4 Reassured patient today that we will follow-up on all pending results and continue workup to reveal underlying cause for his weight loss, anemia and malaise. Patient verbalized understanding
--- NOTE | 2018-01-26 16:52 | P.CONS ---
History of Present Illness - Chief Complaint Medical debility - History of Present Illness I had the opportunity see patient for inpatient rehab consultation with regard to medical debility. [facility] Seen by cardiology. Abdominal CT demonstrates thickened sigmoid wall consistent with diverticulitis or colitis. Skull x-ray negative. Bone scan with uptake in shoulders, knees, thyroid. PT reports supervision for transfers and gait 45 feet with roller walker but fatigues quickly. OT reports supervision for upper dressing but moderate assistance for lower dressing and bathing and minimal assistance for toileting and transfers. Previous functional history as elicited from patient: 77-year-old right-handed white male who is and lives in one floor home with . does cooking, laundry, driving. Patient retired. Patient describes independent with standing shower but with a walker, gait with quad cane around the house. assists patient with footwear. Patient history of smoking and remote past per doesn't smoke or drink currently. Dr. Espinoza is regular doctor. Family history both parents with [place]. Review of Systems Review of systems: ENT: Denies sneezes or discharge. Eyes: Denies discharge or photophobia. Cardiac: Denies chest pain or palpitation. Pulmonary: At least mild shortness of breath. Gastrointestinal: Denies nausea, emesis, constipation, diarrhea. Genitourinary: Denies discharge or frequency. Musculoskeletal: Denies muscle or bone aches. Neurologic: Weakness. Endocrine: Denies shakes or sweats. Oncology: Denies cancers. Dermatologic: Denies rash, itching, pruritus. ALLERGY/immunology: Denies sneezes, rashes. Past Medical History Past Medical History: Cancer, COPD, CVA/TIA, Hyperlipidemia, Hypertension, Pneumonia Additional Past Medical History / Comment(s): SMALL AAA, TIA, CVA and has had vertigo/difficulty ambulating, difficulty writing and decreased hearing with R ear since, CATE with Cpap use, skin cancer with removal. History of Any Multi-Drug Resistant Organisms: None Reported Past Surgical History: Appendectomy, Tonsillectomy Additional Past Surgical History / Comment(s): Skin cancer removal, colonoscopy Past Anesthesia/Blood Transfusion Reactions: No Reported Reaction Smoking Status: Former smoker - Past Family History Father Family Medical History: No Reported History Mother Family Medical History: Osteoarthritis (OA) Medications and Allergies Home Medications Medication Instructions Recorded Confirmed Type Aspirin 81 mg PO BID 11/06/13 01/20/18 History Metoprolol Tartrate [Lopressor] 25 mg PO BID 11/06/13 01/20/18 History Multivitamin [Men's Multi-Vitamin] 1 tab PO DAILY 11/06/13 01/20/18 History Omeprazole [PriLOSEC] 20 mg PO DAILY 11/06/13 01/20/18 History Ubidecarenone [Coq-10] 100 mg PO DAILY 11/06/13 01/20/18 History Albuterol Sulfate [Proair Hfa] 2 puff INHALATION RT-QID PRN 10/13/17 01/20/18 History Felodipine ER [Plendil] 5 mg PO DAILY 10/13/17 01/20/18 History Niacin 500 mg PO DAILY 10/13/17 01/20/18 History Cholecalciferol (Vitamin D3) 2,000 unit PO DAILY 01/20/18 01/20/18 History [Vitamin D3] Cholestyramine (with Sugar) 4 gm PO DAILY 01/20/18 01/20/18 History [Questran Packet] Glycopyrrolate/Formoterol Fum 2 puff INHALATION RT-BID 01/20/18 01/20/18 History [Bevespi Aerosphere Inhaler] Pravastatin Sodium [Pravachol] 40 mg PO HS 01/20/18 01/20/18 History Triamterene-Hctz 37.5-25Mg 1 cap PO DAILY 01/20/18 01/20/18 History [Dyazide 37.5-25 Capsule] Allergies Allergy/AdvReac Type Severity Reaction Status Date / Time No Known Allergies Allergy Verified 01/20/18 09:09 Physical Exam Vitals: Vital Signs Temp Pulse Pulse Pulse Resp BP Pulse Ox 01/26/18 16:16 84 01/26/18 16:07 84 01/26/18 14:59 98.2 F 91 12 102/65 92 L 01/26/18 11:31 80 01/26/18 11:14 78 01/26/18 07:00 98.7 F 85 12 104/58 97 01/26/18 01:12 98.4 F 85 16 108/54 93 L 01/25/18 23:53 67 17 01/25/18 20:30 98.8 F 88 17 115/65 95 Intake and Output 01/26/18 01/26/18 01/26/18 06:59 14:59 22:59 Intake Total 300 Balance 300 Intake: Intake, IV Titration 50 Amount Piperacillin-Tazobactam 3 50 .375 gm In Dextrose/Water 1 50ml.bag @ 12.5 mls/hr IVPB Q8HR [facility] Rx#: [id number] Oral 250 Other: # Voids 3 2 # Bowel Movements 1 4 Skin: Atrophic, intact. General: Obese and large build and comfortable appearance. Head: Normocephalic, atraumatic. Eyes: Symmetric. Pupils equal round. Ears: Symmetric. Hearing within normal limits. Mouth: Clear. Neck: Supple. Carotid without bruit. Cardiac: Regular rate and rhythm. Lungs: Clear anteriorly and posteriorly. Abdomen: Soft active nontender. Extremities: Normal tone. Neurological: Mental status: Alert, cooperative, pleasant. Cranial nerves: Symmetric facial tone and trapezius. Motor: Actively elevate arms but poor elevation legs. Sensation: Intact throughout. DTRs: Symmetric and equal throughout. Mobility: Nursing assistance for transfers from bed to Rona chair. Results CBC & Chem 7: 01/26/18 06:52 01/26/18 06:52 Labs: Abnormal Lab Results - Last 24 Hours (Table) 01/24/18 01/26/18 01/26/18 Range/Units 05:43 06:52 06:52 RBC 3.02 L (4.30-5.90) m/uL Hgb 8.2 L (13.0-17.5) gm/dL Hct 26.7 L (39.0-53.0) % MCHC 30.7 L (31.0-37.0) g/dL RDW 20.7 H (11.5-15.5) % INR (<1.2) Sodium 136 L (137-145) mmol/L Calcium 7.7 L (8.4-10.2) mg/dL Alkaline Phosphatase 238 H (38-126) U/L Total Protein 5.9 L (6.3-8.2) g/dL Albumin 2.3 L (3.5-5.0) g/dL Albumin (PEP) 2.38 L (3.80-4.90) g/dL Niktz-4-Cfyzkavbo 0.47 H (0.10-0.40) g/dL Beta Globulins 0.44 L (0.60-1.30) g/dL Gamma Globulins 2.10 H (0.70-1.50) g/dL 01/26/18 Range/Units 06:52 RBC (4.30-5.90) m/uL Hgb (13.0-17.5) gm/dL Hct (39.0-53.0) % MCHC (31.0-37.0) g/dL RDW (11.5-15.5) % INR 1.2 H (<1.2) Sodium (137-145) mmol/L Calcium (8.4-10.2) mg/dL Alkaline Phosphatase (38-126) U/L Total Protein (6.3-8.2) g/dL Albumin (3.5-5.0) g/dL Albumin (PEP) (3.80-4.90) g/dL Nmroy-2-Syhrbllro (0.10-0.40) g/dL Beta Globulins (0.60-1.30) g/dL Gamma Globulins (0.70-1.50) g/dL Microbiology - Last 24 Hours (Table) 01/20/18 14:38 Blood Culture - Preliminary Blood No Growth after 120 hours Assessment and Plan (1) GI bleed Current Visit: Yes Status: Acute Code(s): K92.2 - GASTROINTESTINAL HEMORRHAGE, UNSPECIFIED SNOMED Code(s): 84307755 Plan: Impression: 1. Medical debility. 2. GI bleed with a resultant blood loss anemia. 3. Hypertension. 4. His been a. 5. History of stroke. 6. History cancer. 7. COPD. Comments and plan: At this time PT and OT are ongoing. OT at least documents physical system needs and safety concerns. PT documents safety concerns but at supervision level but does note fatigues quickly. We'll continue to follow therapies with yourself for possible need and benefit of inpatient rehab and meeting insurance criteria.
[2018-01-27] MEDS: IPRATROPIUM 0.5 MG/2.5 ML NEBU INHALATION SCH ×4 (08:39→20:54)
[2018-01-27] MEDS: FORMOTEROL FUMARATE 20 MCG/2 ML NEBU INHALATION SCH ×2 (08:40→20:54)
--- NOTE | 2018-01-27 10:17 | P.PN ---
Subjective Progress Note Date: 01/27/18 Principal diagnosis: anemia, profound unintentional weight loss, chronic diarrhea seen today in follow-up. He is status post EGD and colonoscopy with biopsies, denies nausea, vomiting, hematemesis, patient continues to have diarrhea, forearm or episodes a day, the stool is black, no gross blood noted, no other bleeding, the abdomen continues to have a dull ache. Objective - Vital Signs Vital signs: Vital Signs Temp 98.8 F 01/27/18 07:30 Pulse 80 01/27/18 08:56 Resp 16 01/27/18 07:30 BP 102/65 01/27/18 07:30 Pulse Ox 96 01/27/18 07:30 Intake & Output 01/26/18 01/27/18 01/27/18 18:59 06:59 18:59 Intake Total 180 Output Total 1 Balance -1 180 Intake: Oral 180 Output: Stool 1 Other: # Voids 2 1 1 # Bowel Movements 4 1 1 - Constitutional General appearance: Present: morbidly obese, no acute distress - EENT Eyes: Present: anicteric sclerae - Respiratory Respiratory: bilateral: CTA - Cardiovascular Heart sounds: normal: S1, S2 - Peripheral edema leg Peripheral Edema: bilateral: 1+ - Gastrointestinal General gastrointestinal: Present: normal bowel sounds, soft. Absent: absent bowel sounds, decreased bowel sounds, distended, hepatomegaly, hyperactive bowel sounds, organomegaly, rigid, scaphoid, splenomegaly, tenderness, umbilical hernia, ventral hernia - Integumentary Integumentary: Present: pale - Neurologic Neurologic: Present: CNII-XII intact - Musculoskeletal Musculoskeletal: Present: generalized weakness - Psychiatric Psychiatric: Present: A&O x's 3, appropriate affect, intact judgment & insight - Labs CBC & Chem 7: 01/26/18 06:52 01/26/18 06:52 Labs: Abnormal Lab Results - Last 24 Hours (Table) 01/24/18 Range/Units 05:43 Albumin (PEP) 2.38 L (3.80-4.90) g/dL Lkyyq-9-Syjzdqgtq 0.47 H (0.10-0.40) g/dL Beta Globulins 0.44 L (0.60-1.30) g/dL Gamma Globulins 2.10 H (0.70-1.50) g/dL Microbiology - Last 24 Hours (Table) 01/20/18 14:38 Blood Culture - Final Blood No Growth after 144 hours Assessment and Plan (1) Anemia Narrative/Plan: Patient is going to receive parenteral iron for gastrointestinal bleeding. Biopsies were negative for malignancy. Current Visit: Yes Status: Acute Priority: High Code(s): D64.9 - ANEMIA, UNSPECIFIED SNOMED Code(s): 681311863 (2) Coagulopathy Narrative/Plan: Due to poor nutrition, INR stable at this time Current Visit: Yes Status: Acute Priority: High Code(s): D68.9 - COAGULATION DEFECT, UNSPECIFIED SNOMED Code(s): 37917936 (3) Diarrhea Narrative/Plan: Persistent Current Visit: Yes Status: Acute Priority: High Code(s): R19.7 - DIARRHEA , UNSPECIFIED SNOMED Code(s): 04793033 Plan: Dr. Nelson reviewed the case with the patient. Despite extensive workup, at both [facility] and [facility], no underlying cause for patient's persistent diarrhea as been identified. Dr. Nelson is going to discuss the case with Dr. Roy. Recommendations such as more intensive antidiarrheal therapy or digestive enzyme administration will be reviewed, medical record will be updated. We are going to schedule patient for EUS and biopsy of the perihepatic lymph nodes in the outpatient setting. Doctor attests: I performed a history and physical examination of this patient with dictator. I agree with dictators note, documented as a scribe.
[2018-01-27] MEDS: SODIUM FERRIC GLUCONAT-SUCROSE 125 MG in SODIUM CHLORIDE 0.9% 100 ML IVPB SCH (10:42)
[2018-01-27] MEDS: TRIAMTERENE-HCTZ 37.5-25MG 1 EACH CAP PO SCH (10:49)
[2018-01-27] MEDS: PANTOPRAZOLE 40 MG/10 ML VIAL IVP SCH ×2 (10:50→22:47)
[2018-01-27] MEDS: HEPARIN SODIUM,PORCINE 5,000 UNIT/ML 1 ML VIAL SQ SCH ×2 (10:50→22:47)
[2018-01-27] MEDS: METOPROLOL TARTRATE 25 MG TAB PO SCH ×2 (10:50→22:48)
[2018-01-27] MEDS: amLODIPine 5 MG TAB PO SCH (10:50)
--- NOTE | 2018-01-27 13:04 | P.PN ---
Subjective Progress Note Date: 01/27/18 Principal diagnosis: Diarrhea anemia GI bleed Status post EGD colonoscopy 5 days ago for evaluation of anemia and diarrhea GI bleed unintentional weight loss with evidence of 2 cm broad-based polyp in the duodenal bulb with ulceration no active bleeding biopsies negative for malignancy colon biopsies possible quiescent stage colitis versus self limiting colitis. Still passing loose nonbloody stools 3 so far today. Denies abdominal pain. Tolerating advanced diet. Objective - Vital Signs Vital signs: Vital Signs Temp 98.8 F 01/27/18 07:30 Pulse 80 01/27/18 12:17 Resp 16 01/27/18 07:30 BP 102/65 01/27/18 07:30 Pulse Ox 96 01/27/18 07:30 Intake & Output 01/26/18 01/27/18 01/27/18 18:59 06:59 18:59 Intake Total 180 Output Total 1 Balance -1 180 Intake: Oral 180 Output: Stool 1 Other: # Voids 2 1 1 # Bowel Movements 4 1 1 - Exam General appearance: The patient is alert, oriented, in no acute distress. HET: Head is normocephalic and atraumatic. Pupils are equal and reactive. Oropharynx is clear without lesions. Neck: Supple without lymphadenopathy. Trachea midline. Heart: S1 S2. Regular rate and rhythm. Lungs: No crackles or wheezes are heard. Abdomen: Soft, nontender, nondistended with bowel sounds. No peritoneal signs. No palpable organomegaly or masses. Extremities: Normal skin color and turgor. No cyanosis, rash, ulceration, clubbing, or edema. Radial and pedal pulses are 2/4 bilaterally. Neurological: No focal deficits. Strength and sensation are grossly intact. - Labs CBC & Chem 7: 01/26/18 06:52 01/26/18 06:52 Labs: Microbiology - Last 24 Hours (Table) 01/20/18 14:38 Blood Culture - Final Blood No Growth after 144 hours Assessment and Plan (1) GI bleed Narrative/Plan: 77-year-old gentleman admitted with symptoms of unintentional weight loss 40 pounds x 2 months with decreased appetite and persistent diarrhea greater than one month duration with development of anemia, black colored melanotic bowel movements consistent with acute blood loss anemia. Status post EGD colonoscopy biopsies negative for malignancy possible colitis and colitis versus self limiting colitis. Current Visit: Yes Status: Acute Code(s): K92.2 - GASTROINTESTINAL HEMORRHAGE, UNSPECIFIED SNOMED Code(s): 80039334 (2) Acute blood loss anemia Current Visit: Yes Status: Acute Code(s): D62 - ACUTE POSTHEMORRHAGIC ANEMIA SNOMED Code(s): 578556130 (3) Unintentional weight loss Current Visit: Yes Status: Acute Code(s): R63.4 - ABNORMAL WEIGHT LOSS SNOMED Code(s): 069692434 (4) Diarrhea Narrative/Plan: Presently passing nonbloody stools. Current Visit: Yes Status: Acute Priority: High Code(s): R19.7 - DIARRHEA , UNSPECIFIED SNOMED Code(s): 20681019 (5) Coagulopathy Current Visit: Yes Status: Acute Priority: High Code(s): D68.9 - COAGULATION DEFECT, UNSPECIFIED SNOMED Code(s): 01152312 (6) Elevated alkaline phosphatase level Current Visit: Yes Status: Acute Code(s): R74.8 - ABNORMAL LEVELS OF OTHER SERUM ENZYMES SNOMED Code(s): 814260460 Plan: 1. Imodium 2 mg 4 times a day for control of diarrhea hold for constipation. Return to office in 2-3 weeks for reevaluation with Dr. Roy. We'll follow as needed. Discharge per medicine. Assessment and plan a care discussed with Dr. De La Cruz
[2018-01-27] MEDS: PHYTONADIONE ORAL 5 MG/5 ML ORAL.SYRG PO SCH (13:06)
[2018-01-27] MEDS: LOPERAMIDE 2 MG CAP PO SCH ×2 (15:13→22:48)
[2018-01-27 15:43] LABS: Anisocytosis Moderate; Basophils % (A) 1 %; Eosinophils # (A) 0.6 k/uL (0-0.7); Eosinophils % (A) 9 %; HCT 28.6 % (39.0-53.0); HGB 8.6 gm/dL (13.0-17.5); Hypochromasia Marked; Lymphocytes % (A) 14 %; MCH 26.8 pg (25.0-35.0); MCV 89.4 fL (80.0-100.0); Mean Platelet Volume 7.7; Monocytes # (A) 0.7 k/uL (0-1.0); Monocytes % (A) 10 %; Neutrophils # (A) 4.4 k/uL (1.3-7.7); Neutrophils % (A) 64 %; Platelet Count 228 k/uL (150-450); Poikilocytosis Moderate; RDW 20.3 % (11.5-15.5); WBC 6.9 k/uL (3.8-10.6)
--- NOTE | 2018-01-27 23:51 | P.PN ---
Subjective Progress Note Date: 01/26/18 Principal diagnosis: GI bleed Interval history: This is a 77-year-old gentleman admitted with severe weakness , possible upper GI bleeding, acute blood loss anemia, acute UTI, severe dehydration, coagulopathy, elevated troponin and multiple other medical issues. Status post transfusions of packed RBCs with current hemoglobin 7.5. No further bleeding. potassium 3.4, being supplemented. INR 1.5. CT of abdomen and pelvis reported possible mild diverticulitis or colitis, bone metastasis to the lumbar spine, thoracic spine and pelvis difficult to exclude. Total bili 1.5, elevated alk phos trending down. Evaluated by GI with EGD and colonoscopy scheduled for tomorrow. Echo suboptimal, reporting normal LV function, EF 6065% , moderate concentric left ventricular hypertrophy, borderline pulmonary hypertension. Denies chest pain, palpitations, or increasing shortness of breath. Evaluated by cardiology with recommendations noted. 01/22/2018 symptomatic anemia-short of breath.NPO, awaiting EGD and colonoscopy today. INR 1.2. Receiving potassium supplementation. Magnesium level pending. Denies chest pain, palpitations. Hemoglobin remained 7.5 with no bleeding reported. 01/26/2018 Patient is status post EGD and colonoscopy. Patient also being worked up for unintentional weight loss. Patient had 2 cm broad-based polyp in the duodenal bulb with ulceration. No active bleeding. Neoplasm Could not be excluded. Awaiting biopsy report. Otherwise hemoglobin did drop to 8.2 today. From 8.6 yesterday. Oncology and GI is following. Patient denied any complaints of chest pain or shortness of breath. Patient does have diarrhea likely due to antibiotics. Patient did complete 7 days of antibiotics with Zosyn for urinary tract infection which will be discontinued at this time. Encourage ambulation and incentive spirometry as well as oral intake. Continue with Protonix otherwise. Patient had nuclear scan scan was done Current medications reviewed. Objective - Vital Signs Vital signs: Vital Signs Temp 98.2 F 01/26/18 14:59 Pulse 91 01/26/18 14:59 Resp 12 01/26/18 14:59 BP 102/65 01/26/18 14:59 Pulse Ox 92 L 01/26/18 14:59 Intake & Output 01/25/18 01/26/18 01/26/18 18:59 06:59 18:59 Intake Total 240 890 Output Total 4 Balance 236 890 Weight 136.078 kg Intake: Intake, IV Titration 100 Amount Piperacillin-Tazobactam 3 100 .375 gm In Dextrose/Water 1 50ml.bag @ 12.5 mls/hr IVPB Q8HR [facility] Rx#: [id number] Oral 240 790 Output: Stool 4 Other: Voiding Method Bedside Commode Urinal # Voids 1 3 2 # Bowel Movements 1 1 4 - Exam PHYSICAL EXAMINATION: Patient is lying in the bed comfortably, no acute distress, awake alert and oriented. Morbid obesity. HEENT: Normocephalic. Neck is supple. Pupils reactive. Nostrils clear. Oral cavity is moist. Ears reveal no drainage. Neck reveals no JVD, carotid bruits, or thyromegaly. CHEST EXAMINATION: Trachea is central. Symmetrical expansion. Bibasilar diminished air entry. Lung hines clear to auscultation and percussion. CARDIAC: Normal S1, S2 with no gallops. No murmurs ABDOMEN: Soft. Bowel sounds normal. No organomegaly. No abdominal bruits. Extremities: reveal no edema. No clubbing or cyanosis Neurologically awake, alert, oriented x3 with well-coordinated movements. No focal deficits noted Skin: No rash or skin lesions. Psychiatric: Coperative. Nonsuicidal Musculoskeletal: No joint swelling or deformity. Normal range of motion. - Labs CBC & Chem 7: 01/27/18 14:54 01/26/18 06:52 Labs: Abnormal Lab Results - Last 24 Hours (Table) 01/24/18 01/26/18 01/26/18 Range/Units 05:43 06:52 06:52 RBC 3.02 L (4.30-5.90) m/uL Hgb 8.2 L (13.0-17.5) gm/dL Hct 26.7 L (39.0-53.0) % MCHC 30.7 L (31.0-37.0) g/dL RDW 20.7 H (11.5-15.5) % INR (<1.2) Sodium 136 L (137-145) mmol/L Calcium 7.7 L (8.4-10.2) mg/dL Alkaline Phosphatase 238 H (38-126) U/L Total Protein 5.9 L (6.3-8.2) g/dL Albumin 2.3 L (3.5-5.0) g/dL Albumin (PEP) 2.38 L (3.80-4.90) g/dL Wsipp-6-Bxhrsopmy 0.47 H (0.10-0.40) g/dL Beta Globulins 0.44 L (0.60-1.30) g/dL Gamma Globulins 2.10 H (0.70-1.50) g/dL 01/26/18 Range/Units 06:52 RBC (4.30-5.90) m/uL Hgb (13.0-17.5) gm/dL Hct (39.0-53.0) % MCHC (31.0-37.0) g/dL RDW (11.5-15.5) % INR 1.2 H (<1.2) Sodium (137-145) mmol/L Calcium (8.4-10.2) mg/dL Alkaline Phosphatase (38-126) U/L Total Protein (6.3-8.2) g/dL Albumin (3.5-5.0) g/dL Albumin (PEP) (3.80-4.90) g/dL Ikosp-3-Ehcfvjplq (0.10-0.40) g/dL Beta Globulins (0.60-1.30) g/dL Gamma Globulins (0.70-1.50) g/dL Microbiology - Last 24 Hours (Table) 01/20/18 14:38 Blood Culture - Preliminary Blood No Growth after 120 hours Assessment and Plan Assessment: -Severe weakness, upper GI bleeding with acute blood loss anemia. mild diverticulitis or colitis, possible bone metastasis to the lumbar spine, thoracic spine and pelvis per CT, in a patient with diarrhea, significant unintentional weight loss of 40 pounds in 2 months. -Acute UTI with sepsis -Leukocytosis secondary to the above -Severe dehydration -Troponin 0.085, indeterminate -Coagulopathy -Morbid Obesity, BMI 41.8 -Hypokalemia -Hypoxia, secondary to symptomatic anemia. Currently saturating well on room air - Moderate protein calorie malnutrition Plan: Continue on current medication regime ,monitoring and symptomatic treatment. Follow-up H&H.. gentle IV fluid hydration, PPI,. Patient is status post EGD and colonoscopy. Close monitoring of CBC, PT/INR, electrolytes. Time with Patient: Greater than 30
--- NOTE | 2018-01-27 23:55 | P.PN ---
Subjective Progress Note Date: 01/27/18 Principal diagnosis: GI bleed and acute blood loss anemia profound unintentional weight loss, chronic diarrhea Interval history: This is a 77-year-old gentleman admitted with severe weakness , possible upper GI bleeding, acute blood loss anemia, acute UTI, severe dehydration, coagulopathy, elevated troponin and multiple other medical issues. Status post transfusions of packed RBCs with current hemoglobin 7.5. No further bleeding. potassium 3.4, being supplemented. INR 1.5. CT of abdomen and pelvis reported possible mild diverticulitis or colitis, bone metastasis to the lumbar spine, thoracic spine and pelvis difficult to exclude. Total bili 1.5, elevated alk phos trending down. Evaluated by GI with EGD and colonoscopy scheduled for tomorrow. Echo suboptimal, reporting normal LV function, EF 6065% , moderate concentric left ventricular hypertrophy, borderline pulmonary hypertension. Denies chest pain, palpitations, or increasing shortness of breath. Evaluated by cardiology with recommendations noted. 01/22/2018 symptomatic anemia-short of breath.NPO, awaiting EGD and colonoscopy today. INR 1.2. Receiving potassium supplementation. Magnesium level pending. Denies chest pain, palpitations. Hemoglobin remained 7.5 with no bleeding reported. 01/26/2018 Patient is status post EGD and colonoscopy. Patient also being worked up for unintentional weight loss. Patient had 2 cm broad-based polyp in the duodenal bulb with ulceration. No active bleeding. Neoplasm Could not be excluded. Awaiting biopsy report. Otherwise hemoglobin did drop to 8.2 today. From 8.6 yesterday. Oncology and GI is following. Patient denied any complaints of chest pain or shortness of breath. Patient does have diarrhea likely due to antibiotics. Patient did complete 7 days of antibiotics with Zosyn for urinary tract infection which will be discontinued at this time. Encourage ambulation and incentive spirometry as well as oral intake. Continue with Protonix otherwise. Patient had nuclear scan scan was done. 01/27/2018 Patient denied any complaints of chest pain or shortness of breath. Patient had an episode of heart rate going up to 130s. No compressive dizziness. No palpitations. No fever no chills. Patient still continues to have diarrhea. Started on Imodium. Oncology recommends outpatient follow-up with perihepatic lymph node biopsy. Patient is being followed for rehab transfer. Hemoglobin is 8.6 today. We will follow up EGD and colonoscopy biopsy reports. Current medications reviewed. Objective - Vital Signs Vital signs: Vital Signs Temp 98.0 F 01/27/18 20:05 Pulse 80 01/27/18 21:12 Resp 18 01/27/18 20:05 BP 111/69 01/27/18 20:05 Pulse Ox 95 01/27/18 20:05 Intake & Output 01/27/18 01/27/18 01/28/18 06:59 18:59 06:59 Intake Total 1572 Output Total 1 1 100 Balance -1 1571 -100 Intake: Intake, IV Titration 100 Amount Sodium Ferric Gluconat- 100 Sucrose 125 mg In Sodium Chloride 0.9% 100 ml @ 100 mls/hr IVPB DAILY [facility] Rx#:[id number] Oral 1472 Output: Urine 100 Stool 1 1 Other: # Voids 1 1 1 # Bowel Movements 1 1 1 - Exam PHYSICAL EXAMINATION: Patient is lying in the bed comfortably, no acute distress, awake alert and oriented. Morbid obesity. HEENT: Normocephalic. Neck is supple. Pupils reactive. Nostrils clear. Oral cavity is moist. Ears reveal no drainage. Neck reveals no JVD, carotid bruits, or thyromegaly. CHEST EXAMINATION: Trachea is central. Symmetrical expansion. Bibasilar diminished air entry. Lung hines clear to auscultation and percussion. CARDIAC: Normal S1, S2 with no gallops. No murmurs ABDOMEN: Soft. Bowel sounds normal. No organomegaly. No abdominal bruits. Extremities: reveal no edema. No clubbing or cyanosis Neurologically awake, alert, oriented x3 with well-coordinated movements. No focal deficits noted Skin: No rash or skin lesions. Psychiatric: Coperative. Nonsuicidal Musculoskeletal: No joint swelling or deformity. Normal range of motion. - Labs CBC & Chem 7: 01/27/18 14:54 01/26/18 06:52 Labs: Abnormal Lab Results - Last 24 Hours (Table) 01/27/18 Range/Units 14:54 RBC 3.20 L (4.30-5.90) m/uL Hgb 8.6 L (13.0-17.5) gm/dL Hct 28.6 L (39.0-53.0) % MCHC 30.0 L (31.0-37.0) g/dL RDW 20.3 H (11.5-15.5) % Assessment and Plan Assessment: -Severe weakness, upper GI bleeding with acute blood loss anemia. mild diverticulitis or colitis, possible bone metastasis to the lumbar spine, thoracic spine and pelvis per CT, in a patient with diarrhea, significant unintentional weight loss of 40 pounds in 2 months. - Chronic diarrhea. Etiology unknown -Acute UTI with sepsis -Leukocytosis secondary to the above -Severe dehydration -Troponin 0.085, indeterminate -Coagulopathy. INR was 1.5 currently improved to 1.2 -Morbid Obesity, BMI 41.8 -Hypokalemia -Hypoxia, secondary to symptomatic anemia. Currently saturating well on room air - Moderate protein calorie malnutrition Plan: Continue on current medication regime ,monitoring and symptomatic treatment. Follow-up H&H.. gentle IV fluid hydration, PPI,. Patient is status post EGD and colonoscopy. Close monitoring of CBC, PT/INR, electrolytes. Time with Patient: Greater than 30
[2018-01-28] MEDS: LOPERAMIDE 2 MG CAP PO SCH ×5 (01:06→20:47)
[2018-01-28] MEDS: FORMOTEROL FUMARATE 20 MCG/2 ML NEBU INHALATION SCH ×2 (08:24→20:26)
[2018-01-28] MEDS: IPRATROPIUM 0.5 MG/2.5 ML NEBU INHALATION SCH ×4 (08:24→20:26)
[2018-01-28] MEDS: PANTOPRAZOLE 40 MG/10 ML VIAL IVP SCH ×2 (09:50→20:47)
[2018-01-28] MEDS: METOPROLOL TARTRATE 25 MG TAB PO SCH ×2 (09:50→20:48)
[2018-01-28] MEDS: amLODIPine 5 MG TAB PO SCH (09:50)
[2018-01-28] MEDS: TRIAMTERENE-HCTZ 37.5-25MG 1 EACH CAP PO SCH (09:50)
[2018-01-28] MEDS: HEPARIN SODIUM,PORCINE 5,000 UNIT/ML 1 ML VIAL SQ SCH ×2 (09:50→20:47)
--- NOTE | 2018-01-28 10:18 | P.PN ---
Subjective Progress Note Date: 01/28/18 Principal diagnosis: anemia, profound unintentional weight loss, chronic diarrhea Patient seen today in follow-up, he continues to have persistent diarrhea, colored stools dark, he denies dorian blood or rectal pain, abdominal cramping, his abdominal discomfort is generalized and a dull ache, no other pain to report. No nausea or vomiting he is tolerating oral intake, he is feeling weak. Objective - Vital Signs Vital signs: Vital Signs Temp 99.3 F 01/28/18 07:23 Pulse 96 01/28/18 08:40 Resp 20 01/28/18 08:00 BP 110/66 01/28/18 07:23 Pulse Ox 96 01/28/18 08:26 Intake & Output 01/27/18 01/28/18 01/28/18 18:59 06:59 18:59 Intake Total 1572 Output Total 1 101 Balance 1571 -101 Intake: Intake, IV Titration 100 Amount Sodium Ferric Gluconat- 100 Sucrose 125 mg In Sodium Chloride 0.9% 100 ml @ 100 mls/hr IVPB DAILY [facility] Rx#:[id number] Oral 1472 Output: Urine 100 Stool 1 1 Other: Voiding Method Bedside Commode Urinal # Voids 1 2 # Bowel Movements 1 1 - Constitutional General appearance: Present: morbidly obese, no acute distress - Gastrointestinal General gastrointestinal: Present: normal bowel sounds, soft - Integumentary Integumentary: Present: pale - Neurologic Neurologic: Present: CNII-XII intact - Musculoskeletal Musculoskeletal: Present: generalized weakness - Psychiatric Psychiatric: Present: A&O x's 3, appropriate affect, intact judgment & insight - Labs CBC & Chem 7: 01/27/18 14:54 01/26/18 06:52 Labs: Abnormal Lab Results - Last 24 Hours (Table) 01/27/18 Range/Units 14:54 RBC 3.20 L (4.30-5.90) m/uL Hgb 8.6 L (13.0-17.5) gm/dL Hct 28.6 L (39.0-53.0) % MCHC 30.0 L (31.0-37.0) g/dL RDW 20.3 H (11.5-15.5) % Assessment and Plan (1) Anemia Narrative/Plan: Parenteral iron being administered. Hemoglobin is stable, no transfusion needed today. Current Visit: Yes Status: Acute Priority: High Code(s): D64.9 - ANEMIA, UNSPECIFIED SNOMED Code(s): 437014546 (2) Coagulopathy Narrative/Plan: INR is stable, secondary to poor oral intake and malabsorption. Current Visit: Yes Status: Acute Priority: High Code(s): D68.9 - COAGULATION DEFECT, UNSPECIFIED SNOMED Code(s): 46078968 (3) Diarrhea Narrative/Plan: Persistent but not progressive Current Visit: Yes Status: Acute Priority: High Code(s): R19.7 - DIARRHEA , UNSPECIFIED SNOMED Code(s): 28611241 Plan: Dr. Nelson did discuss the case with Dr. Roy. Plan is for fecal fat stool study and laboratory evaluation for carcinoid. Dr. Roy is planning the EUS. We will follow up with patient in the a.m.
[2018-01-28] MEDS: SODIUM FERRIC GLUCONAT-SUCROSE 125 MG in SODIUM CHLORIDE 0.9% 100 ML IVPB SCH (12:33)
--- NOTE | 2018-01-28 12:38 | P.PN ---
Subjective Progress Note Date: 01/28/18 Principal diagnosis: Diarrhea anemia GI bleed Status post EGD colonoscopy for evaluation of anemia and diarrhea GI bleed unintentional weight loss with evidence of 2 cm broad-based polyp in the duodenal bulb with ulceration no active bleeding biopsies negative for malignancy colon biopsies possible quiescent stage colitis versus self limiting colitis. Imodium 2 mg 4 times a day scheduled started yesterday patient reports 1 bowel movement since yesterday evening more formed. Denies diarrhea this morning. Tolerating regular diet. Objective - Vital Signs Vital signs: Vital Signs Temp 99.3 F 01/28/18 07:23 Pulse 88 01/28/18 12:03 Resp 20 01/28/18 08:00 BP 110/66 01/28/18 07:23 Pulse Ox 96 01/28/18 08:26 Intake & Output 01/27/18 01/28/18 01/28/18 18:59 06:59 18:59 Intake Total 1572 450 Output Total 1 101 Balance 1571 -101 450 Intake: Intake, IV Titration 100 Amount Sodium Ferric Gluconat- 100 Sucrose 125 mg In Sodium Chloride 0.9% 100 ml @ 100 mls/hr IVPB DAILY [facility] Rx#:[id number] Oral 1472 450 Output: Urine 100 Stool 1 1 Other: Voiding Method Bedside Commode Urinal # Voids 1 2 # Bowel Movements 1 1 - Exam General appearance: The patient is alert, oriented, in no acute distress. HET: Head is normocephalic and atraumatic. Pupils are equal and reactive. Oropharynx is clear without lesions. Neck: Supple without lymphadenopathy. Trachea midline. Heart: S1 S2. Regular rate and rhythm. Lungs: No crackles or wheezes are heard. Abdomen: Soft, nontender, nondistended with bowel sounds. No peritoneal signs. No palpable organomegaly or masses. Extremities: Normal skin color and turgor. No cyanosis, rash, ulceration, clubbing, or edema. Radial and pedal pulses are 2/4 bilaterally. Neurological: No focal deficits. Strength and sensation are grossly intact. - Labs CBC & Chem 7: 01/27/18 14:54 01/26/18 06:52 Labs: Abnormal Lab Results - Last 24 Hours (Table) 01/27/18 Range/Units 14:54 RBC 3.20 L (4.30-5.90) m/uL Hgb 8.6 L (13.0-17.5) gm/dL Hct 28.6 L (39.0-53.0) % MCHC 30.0 L (31.0-37.0) g/dL RDW 20.3 H (11.5-15.5) % Assessment and Plan (1) GI bleed Narrative/Plan: 77-year-old gentleman admitted with symptoms of unintentional weight loss 40 pounds x 2 months with decreased appetite and persistent diarrhea greater than one month duration with development of anemia, black colored melanotic bowel movements consistent with acute blood loss anemia. Status post EGD colonoscopy biopsies negative for malignancy possible colitis and colitis versus self limiting colitis. Current Visit: Yes Status: Acute Code(s): K92.2 - GASTROINTESTINAL HEMORRHAGE, UNSPECIFIED SNOMED Code(s): 80460117 (2) Acute blood loss anemia Current Visit: Yes Status: Acute Code(s): D62 - ACUTE POSTHEMORRHAGIC ANEMIA SNOMED Code(s): 503382706 (3) Unintentional weight loss Current Visit: Yes Status: Acute Code(s): R63.4 - ABNORMAL WEIGHT LOSS SNOMED Code(s): 518098446 (4) Diarrhea Narrative/Plan: Presently passing nonbloody stools. Current Visit: Yes Status: Acute Priority: High Code(s): R19.7 - DIARRHEA , UNSPECIFIED SNOMED Code(s): 70694502 (5) Coagulopathy Current Visit: Yes Status: Acute Priority: High Code(s): D68.9 - COAGULATION DEFECT, UNSPECIFIED SNOMED Code(s): 09476929 (6) Elevated alkaline phosphatase level Current Visit: Yes Status: Acute Code(s): R74.8 - ABNORMAL LEVELS OF OTHER SERUM ENZYMES SNOMED Code(s): 249534679 Plan: 1. Imodium 2 mg 4 times a day for control of diarrhea hold for constipation. Imodium seems to be working patient is not reporting diarrhea anymore. If diarrhea recurs 24 hour stool collection quantitative fat will be recommended. We'll discuss outpatient EUS with patient in office for further evaluation of duodenal findings an EGD. Return to office next week with Dr. Roy. Dr. Roy discussed case with oncologist Dr. Nelson. We'll follow as needed. Discharge per medicine. Assessment and plan a care discussed with Dr. De La Cruz
[2018-01-28] MEDS ORDERED: FUROSEMIDE 10 MG/ML 4 ML VIAL IV STA (19:16)
--- NOTE | 2018-01-29 00:02 | P.PN ---
Subjective Progress Note Date: 01/28/18 Principal diagnosis: GI bleed and acute blood loss anemia profound unintentional weight loss, chronic diarrhea Interval history: This is a 77-year-old gentleman admitted with severe weakness , possible upper GI bleeding, acute blood loss anemia, acute UTI, severe dehydration, coagulopathy, elevated troponin and multiple other medical issues. Status post transfusions of packed RBCs with current hemoglobin 7.5. No further bleeding. potassium 3.4, being supplemented. INR 1.5. CT of abdomen and pelvis reported possible mild diverticulitis or colitis, bone metastasis to the lumbar spine, thoracic spine and pelvis difficult to exclude. Total bili 1.5, elevated alk phos trending down. Evaluated by GI with EGD and colonoscopy scheduled for tomorrow. Echo suboptimal, reporting normal LV function, EF 6065% , moderate concentric left ventricular hypertrophy, borderline pulmonary hypertension. Denies chest pain, palpitations, or increasing shortness of breath. Evaluated by cardiology with recommendations noted. 01/22/2018 symptomatic anemia-short of breath.NPO, awaiting EGD and colonoscopy today. INR 1.2. Receiving potassium supplementation. Magnesium level pending. Denies chest pain, palpitations. Hemoglobin remained 7.5 with no bleeding reported. 01/26/2018 Patient is status post EGD and colonoscopy. Patient also being worked up for unintentional weight loss. Patient had 2 cm broad-based polyp in the duodenal bulb with ulceration. No active bleeding. Neoplasm Could not be excluded. Awaiting biopsy report. Otherwise hemoglobin did drop to 8.2 today. From 8.6 yesterday. Oncology and GI is following. Patient denied any complaints of chest pain or shortness of breath. Patient does have diarrhea likely due to antibiotics. Patient did complete 7 days of antibiotics with Zosyn for urinary tract infection which will be discontinued at this time. Encourage ambulation and incentive spirometry as well as oral intake. Continue with Protonix otherwise. Patient had nuclear scan scan was done. 01/27/2018 Patient denied any complaints of chest pain or shortness of breath. Patient had an episode of heart rate going up to 130s. No compressive dizziness. No palpitations. No fever no chills. Patient still continues to have diarrhea. Started on Imodium. Oncology recommends outpatient follow-up with perihepatic lymph node biopsy. Patient is being followed for rehab transfer. Hemoglobin is 8.6 today. We will follow up EGD and colonoscopy biopsy reports. 01/28/2018 Patient denied any diarrhea today. No commerce of chest pain or shortness of breath. Patient is having worsening leg swelling. Recommended to elevate legs while in bed. Patient appears to be sitting in a chair most of the time. No fever no chills. No commerce of chest pain or shortness of breath. No nausea vomiting. Abdominal pain is much improved. Patient is agreeable to be transferred to rehab. Current medications reviewed. Objective - Vital Signs Vital signs: Vital Signs Temp 98.2 F 01/28/18 20:00 Pulse 82 01/28/18 22:06 Resp 18 01/28/18 20:00 BP 111/63 01/28/18 20:00 Pulse Ox 94 L 01/28/18 20:00 Intake & Output 01/28/18 01/28/18 01/29/18 06:59 18:59 06:59 Intake Total 1042 200 Output Total 101 Balance -101 1042 200 Intake: Oral 1042 Other 200 Output: Urine 100 Stool 1 Other: Voiding Method Bedside Commode Urinal # Voids 2 1 2 # Bowel Movements 1 1 - Exam PHYSICAL EXAMINATION: Patient is lying in the bed comfortably, no acute distress, awake alert and oriented. Morbid obesity. HEENT: Normocephalic. Neck is supple. Pupils reactive. Nostrils clear. Oral cavity is moist. Ears reveal no drainage. Neck reveals no JVD, carotid bruits, or thyromegaly. CHEST EXAMINATION: Trachea is central. Symmetrical expansion. Bibasilar diminished air entry. Lung hines clear to auscultation and percussion. CARDIAC: Normal S1, S2 with no gallops. No murmurs ABDOMEN: Soft. Bowel sounds normal. No organomegaly. No abdominal bruits. Extremities: 2+ edema. No clubbing or cyanosis Neurologically awake, alert, oriented x3 with well-coordinated movements. No focal deficits noted Skin: No rash or skin lesions. Psychiatric: Coperative. Nonsuicidal Musculoskeletal: No joint swelling or deformity. Normal range of motion. - Labs CBC & Chem 7: 01/27/18 14:54 01/26/18 06:52 Assessment and Plan Assessment: -Severe weakness, upper GI bleeding with acute blood loss anemia. mild diverticulitis or colitis, possible bone metastasis to the lumbar spine, thoracic spine and pelvis per CT, in a patient with diarrhea, significant unintentional weight loss of 40 pounds in 2 months. - Chronic diarrhea. Etiology unknown . 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 Diarrhea is improving with Imodium. -Acute UTI with sepsis. Urine culture showed 10 -49K E. coli -Leukocytosis secondary to the above. Improved -Severe dehydration -Troponin 0.085, indeterminate -Coagulopathy. INR was 1.5 currently improved to 1.2 -Morbid Obesity, BMI 41.8 -Hypokalemia -Hypoxia, secondary to symptomatic anemia. Currently saturating well on room air - Moderate protein calorie malnutrition - Bilateral lower extremities swelling likely due to hypoalbuminemia. 2-D echo showed normal EF. Plan: Continue on current medication regime ,monitoring and symptomatic treatment. Follow-up H&H.. gentle IV fluid hydration, PPI,. Patient is status post EGD and colonoscopy. If diarrhea recurs 24 hour stool collection quantitative fat will be sent as per GI recommendations. Outpatient workup including endoscopic ultrasound. Close monitoring of CBC, PT/INR, electrolytes. GI and oncology is following. Time with Patient: Greater than 30
[2018-01-29] MEDS: IPRATROPIUM 0.5 MG/2.5 ML NEBU INHALATION SCH ×4 (07:02→19:43)
[2018-01-29] MEDS: FORMOTEROL FUMARATE 20 MCG/2 ML NEBU INHALATION SCH ×2 (07:02→19:43)
[2018-01-29] MEDS: amLODIPine 5 MG TAB PO SCH (10:21)
[2018-01-29] MEDS: PANTOPRAZOLE 40 MG/10 ML VIAL IVP SCH ×2 (10:22→20:55)
[2018-01-29] MEDS: LOPERAMIDE 2 MG CAP PO SCH ×4 (10:22→20:55)
[2018-01-29] MEDS: SODIUM FERRIC GLUCONAT-SUCROSE 125 MG in SODIUM CHLORIDE 0.9% 100 ML IVPB SCH (10:22)
[2018-01-29] MEDS: METOPROLOL TARTRATE 25 MG TAB PO SCH ×2 (10:22→20:55)
[2018-01-29] MEDS: HEPARIN SODIUM,PORCINE 5,000 UNIT/ML 1 ML VIAL SQ SCH ×2 (10:22→20:55)
[2018-01-29 11:43] LABS: Calcium 7.8 mg/dL (8.4-10.2)
[2018-01-29 11:49] LABS: Anisocytosis Moderate; Basophils % (A) 0 %; Eosinophils # (A) 0.6 k/uL (0-0.7); Eosinophils % (A) 9 %; HCT 26.7 % (39.0-53.0); HGB 8.3 gm/dL (13.0-17.5); Hypochromasia Marked; Lymphocytes # (A) 0.9 k/uL (1.0-4.8); Lymphocytes % (A) 13 %; MCH 27.9 pg (25.0-35.0); MCHC 30.9 g/dL (31.0-37.0); MCV 90.1 fL (80.0-100.0); Mean Platelet Volume 7.6; Monocytes # (A) 0.7 k/uL (0-1.0); Monocytes % (A) 11 %; Neutrophils # (A) 4.2 k/uL (1.3-7.7); Neutrophils % (A) 64 %; Platelet Count 224 k/uL (150-450); Poikilocytosis Slight; RBC 2.97 m/uL (4.30-5.90); RDW 20.4 % (11.5-15.5); WBC 6.6 k/uL (3.8-10.6)
--- NOTE | 2018-01-29 13:35 | P.PN ---
Subjective Progress Note Date: 01/29/18 Principal diagnosis: anemia still with dark tarry stools, loose. weak, Fatigued and concerned about having to go to rehab. at bedside concerned about petechae appearing rash on legs , platlets are stable Objective - Vital Signs Vital signs: Vital Signs Temp 98.8 F 01/29/18 07:46 Pulse 70 01/29/18 11:23 Resp 18 01/29/18 07:46 BP 103/61 01/29/18 10:18 Pulse Ox 97 01/29/18 07:46 Intake & Output 01/28/18 01/29/18 01/29/18 18:59 06:59 18:59 Intake Total 1042 400 700 Balance 1042 400 700 Weight 136.078 kg Intake: Oral 1042 700 Other 400 Other: Voiding Method Bedside Commode Bedside Commode Urinal Urinal # Voids 1 3 # Bowel Movements 1 - Exam - Constitutional General appearance: Present: morbidly obese, no acute distress - Gastrointestinal General gastrointestinal: Present: normal bowel sounds, soft - Integumentary Integumentary: Present: pale, [place] appearing areas of rashing on legs and BLE edema - Neurologic Neurologic: Present: CNII-XII intact - Musculoskeletal Musculoskeletal: Present: generalized weakness - Psychiatric Psychiatric: Present: A&O x's 3, appropriate affect, intact judgment & insight - Labs CBC & Chem 7: 01/29/18 10:54 01/29/18 10:54 Labs: Abnormal Lab Results - Last 24 Hours (Table) 01/29/18 01/29/18 Range/Units 10:54 10:54 RBC 2.97 L (4.30-5.90) m/uL Hgb 8.3 L (13.0-17.5) gm/dL Hct 26.7 L (39.0-53.0) % MCHC 30.9 L (31.0-37.0) g/dL RDW 20.4 H (11.5-15.5) % Lymphocytes # 0.9 L (1.0-4.8) k/uL Sodium 134 L (137-145) mmol/L Glucose 122 H (74-99) mg/dL Calcium 7.8 L (8.4-10.2) mg/dL Assessment and Plan Plan: CT scan - abdomen: report reviewed CT scan - pelvis: report reviewed Assessment and Plan (1) Anemia Narrative/Plan: Transfuse to keep Hgb>7. Previous work has been negative for correctable cause. More studies pending, GI to seen and evaluate pt - Planning on Endoscopy soon - Hemoglobin 8.3 today - Awaiting Chromagrananin and Seratonin Current Visit: Yes Status: Acute Priority: High Code(s): D64.9 - ANEMIA, UNSPECIFIED SNOMED Code(s): 934481270 (2) Coagulopathy Narrative/Plan: Suspect due to vit K deficiency secondary to diarrhea, poor diet. Vit K given on 01/21/18. Agree with cont to monitor INR and adm parenteral vit K PRN - INR 1.2 today, improved. Current Visit: Yes Status: Acute Priority: High Code(s): D68.9 - COAGULATION DEFECT, UNSPECIFIED SNOMED Code(s): 77445560 (3) Diarrhea Narrative/Plan: Chronic, GI work up pending. - Concern for GI Blood Loss Current Visit: Yes Status: Acute Priority: High Code(s): R19.7 - DIARRHEA , UNSPECIFIED SNOMED Code(s): 58593998 Plan is for fecal fat stool study and laboratory evaluation for carcinoid. Dr. Roy is planning the EUS. We will follow up with patient over weekend
[2018-01-29] MEDS: TRIAMTERENE-HCTZ 37.5-25MG 1 EACH CAP PO SCH (14:41)
[2018-01-29 19:05] LABS: Reticulocyte % 6.5 % (0.5-2.0)
[2018-01-29 19:06] LABS: INR 1.2 (<1.2); Prothrombin Time 11.1 sec (9.0-12.0)
[2018-01-30] MEDS: IPRATROPIUM 0.5 MG/2.5 ML NEBU INHALATION SCH ×4 (08:05→19:21)
[2018-01-30] MEDS: FORMOTEROL FUMARATE 20 MCG/2 ML NEBU INHALATION SCH ×2 (08:05→19:35)
[2018-01-30] MEDS: TRIAMTERENE-HCTZ 37.5-25MG 1 EACH CAP PO SCH (09:15)
[2018-01-30] MEDS: PANTOPRAZOLE 40 MG/10 ML VIAL IVP SCH ×2 (09:17→20:02)
[2018-01-30] MEDS: HEPARIN SODIUM,PORCINE 5,000 UNIT/ML 1 ML VIAL SQ SCH ×2 (09:17→20:02)
[2018-01-30] MEDS: LOPERAMIDE 2 MG CAP PO SCH ×4 (09:17→21:59)
[2018-01-30] MEDS: METOPROLOL TARTRATE 25 MG TAB PO SCH ×2 (09:18→20:02)
[2018-01-31] MEDS: FORMOTEROL FUMARATE 20 MCG/2 ML NEBU INHALATION SCH ×2 (07:55→19:48)
[2018-01-31] MEDS: IPRATROPIUM 0.5 MG/2.5 ML NEBU INHALATION SCH ×4 (07:55→19:49)
[2018-01-31] MEDS: METOPROLOL TARTRATE 25 MG TAB PO SCH ×2 (10:35→20:37)
[2018-01-31] MEDS: PANTOPRAZOLE 40 MG/10 ML VIAL IVP SCH ×2 (10:35→20:37)
[2018-01-31] MEDS: LOPERAMIDE 2 MG CAP PO SCH ×4 (10:36→20:37)
[2018-01-31] MEDS: HEPARIN SODIUM,PORCINE 5,000 UNIT/ML 1 ML VIAL SQ SCH ×2 (10:36→20:37)
[2018-01-31] MEDS: TRIAMTERENE-HCTZ 37.5-25MG 1 EACH CAP PO SCH (10:36)
[2018-01-31] MEDS ORDERED: ONDANSETRON 4 MG/2 ML VIAL IVP PRN (18:31)
[2018-01-31] MEDS ORDERED: FUROSEMIDE 10 MG/ML 2 ML VIAL IV ONE (18:33)
[2018-02-01 02:31] LABS: Chromogranin A 97 ng/mL (0-95)
[2018-02-01] MEDS: FORMOTEROL FUMARATE 20 MCG/2 ML NEBU INHALATION SCH (07:06)
[2018-02-01] MEDS: IPRATROPIUM 0.5 MG/2.5 ML NEBU INHALATION SCH ×3 (07:07→15:56)
[2018-02-01 08:02] LABS: Anisocytosis Moderate; Basophils % (A) 1 %; Eosinophils # (A) 0.8 k/uL (0-0.7); Eosinophils % (A) 12 %; HCT 27.5 % (39.0-53.0); HGB 8.4 gm/dL (13.0-17.5); Hypochromasia Marked; Lymphocytes % (A) 15 %; MCH 27.9 pg (25.0-35.0); MCHC 30.7 g/dL (31.0-37.0); MCV 90.7 fL (80.0-100.0); Monocytes # (A) 0.8 k/uL (0-1.0); Monocytes % (A) 12 %; Neutrophils # (A) 3.8 k/uL (1.3-7.7); Neutrophils % (A) 59 %; Platelet Count 183 k/uL (150-450); Poikilocytosis Slight; RBC 3.03 m/uL (4.30-5.90); RDW 20.3 % (11.5-15.5); WBC 6.4 k/uL (3.8-10.6)
[2018-02-01 08:12] LABS: Calcium 7.8 mg/dL (8.4-10.2)
[2018-02-01] MEDS: HEPARIN SODIUM,PORCINE 5,000 UNIT/ML 1 ML VIAL SQ SCH (08:15)
[2018-02-01] MEDS: LOPERAMIDE 2 MG CAP PO SCH ×2 (08:15→13:15)
[2018-02-01] MEDS: PANTOPRAZOLE 40 MG/10 ML VIAL IVP SCH (08:15)
[2018-02-01] MEDS: METOPROLOL TARTRATE 25 MG TAB PO SCH (08:15)
[2018-02-01] MEDS: TRIAMTERENE-HCTZ 37.5-25MG 1 EACH CAP PO SCH (08:15)
--- NOTE | 2018-02-01 10:53 | P.PN ---
Subjective Progress Note Date: 01/30/18 Principal diagnosis: GI bleed and acute blood loss anemia profound unintentional weight loss, chronic diarrhea Interval history: This is a 77-year-old gentleman admitted with severe weakness , possible upper GI bleeding, acute blood loss anemia, acute UTI, severe dehydration, coagulopathy, elevated troponin and multiple other medical issues. Status post transfusions of packed RBCs with current hemoglobin 7.5. No further bleeding. potassium 3.4, being supplemented. INR 1.5. CT of abdomen and pelvis reported possible mild diverticulitis or colitis, bone metastasis to the lumbar spine, thoracic spine and pelvis difficult to exclude. Total bili 1.5, elevated alk phos trending down. Evaluated by GI with EGD and colonoscopy scheduled for tomorrow. Echo suboptimal, reporting normal LV function, EF 6065% , moderate concentric left ventricular hypertrophy, borderline pulmonary hypertension. Denies chest pain, palpitations, or increasing shortness of breath. Evaluated by cardiology with recommendations noted. 01/22/2018 symptomatic anemia-short of breath.NPO, awaiting EGD and colonoscopy today. INR 1.2. Receiving potassium supplementation. Magnesium level pending. Denies chest pain, palpitations. Hemoglobin remained 7.5 with no bleeding reported. 01/26/2018 Patient is status post EGD and colonoscopy. Patient also being worked up for unintentional weight loss. Patient had 2 cm broad-based polyp in the duodenal bulb with ulceration. No active bleeding. Neoplasm Could not be excluded. Awaiting biopsy report. Otherwise hemoglobin did drop to 8.2 today. From 8.6 yesterday. Oncology and GI is following. Patient denied any complaints of chest pain or shortness of breath. Patient does have diarrhea likely due to antibiotics. Patient did complete 7 days of antibiotics with Zosyn for urinary tract infection which will be discontinued at this time. Encourage ambulation and incentive spirometry as well as oral intake. Continue with Protonix otherwise. Patient had nuclear scan scan was done. 01/27/2018 Patient denied any complaints of chest pain or shortness of breath. Patient had an episode of heart rate going up to 130s. No compressive dizziness. No palpitations. No fever no chills. Patient still continues to have diarrhea. Started on Imodium. Oncology recommends outpatient follow-up with perihepatic lymph node biopsy. Patient is being followed for rehab transfer. Hemoglobin is 8.6 today. We will follow up EGD and colonoscopy biopsy reports. 01/28/2018 Patient denied any diarrhea today. No commerce of chest pain or shortness of breath. Patient is having worsening leg swelling. Recommended to elevate legs while in bed. Patient appears to be sitting in a chair most of the time. No fever no chills. No complaints of chest pain or shortness of breath. No nausea vomiting. Abdominal pain is much improved. Patient is agreeable to be transferred to rehab. 01/29/2018 Patient is still having diarrhea. Patient was started on Imodium currently. Patient was with leg elevation while in bed. Norvasc has been held. Continue with the diuretics. No complaints of chest pain or shortness of breath. No nausea vomiting or abdominal pain. 01/30/2018 Diarrhea did improve slightly. No complaints of chest pain or shortness of breath. Leg swelling is better with leg elevation. No complaints of chest pain or shortness of breath. No fever no chills. Patient is sitting on chair most of the time. Encourage ambulation. Possible rehab transfer on Thursday. Current medications reviewed. Objective - Vital Signs Vital signs: Vital Signs Temp 98.4 F 01/30/18 15:09 Pulse 87 01/30/18 15:52 Resp 16 01/30/18 15:09 BP 124/67 01/30/18 15:09 Pulse Ox 94 L 01/30/18 15:09 Intake & Output 01/29/18 01/30/18 01/30/18 18:59 06:59 18:59 Intake Total 1180 462 Output Total 125 Balance 1180 -125 462 Weight 136.078 kg Intake: Oral 1180 462 Output: Urine 125 Other: Voiding Method Bedside Commode Bedside Commode Urinal Urinal # Voids 1 2 1 # Bowel Movements 1 1 1 - Exam PHYSICAL EXAMINATION: Patient is lying in the bed comfortably, no acute distress, awake alert and oriented. Morbid obesity. HEENT: Normocephalic. Neck is supple. Pupils reactive. Nostrils clear. Oral cavity is moist. Ears reveal no drainage. Neck reveals no JVD, carotid bruits, or thyromegaly. CHEST EXAMINATION: Trachea is central. Symmetrical expansion. Bibasilar diminished air entry. Lung hines clear to auscultation and percussion. CARDIAC: Normal S1, S2 with no gallops. No murmurs ABDOMEN: Soft. Bowel sounds normal. No organomegaly. No abdominal bruits. Extremities: 2+ edema. No clubbing or cyanosis Neurologically awake, alert, oriented x3 with well-coordinated movements. No focal deficits noted Skin: No rash or skin lesions. Psychiatric: Coperative. Nonsuicidal Musculoskeletal: No joint swelling or deformity. Normal range of motion. - Labs CBC & Chem 7: 02/01/18 06:20 02/01/18 06:20 Labs: Abnormal Lab Results - Last 24 Hours (Table) 01/29/18 01/29/18 Range/Units 18:49 18:49 Retic Count 6.5 H (0.5-2.0) % INR 1.2 H (<1.2) Assessment and Plan Assessment: -Severe weakness, upper GI bleeding with acute blood loss anemia. mild diverticulitis or colitis, possible bone metastasis to the lumbar spine, thoracic spine and pelvis per CT, in a patient with diarrhea, significant unintentional weight loss of 40 pounds in 2 months. - Chronic diarrhea. Etiology unknown . 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 Diarrhea is improving with Imodium. -Acute UTI with sepsis. Urine culture showed 10 -49K E. coli -Leukocytosis secondary to the above. Improved -Severe dehydration -Troponin 0.085, indeterminate -Coagulopathy. INR was 1.5 currently improved to 1.2 -Morbid Obesity, BMI 41.8 -Hypokalemia -Hypoxia, secondary to symptomatic anemia. Currently saturating well on room air - Moderate protein calorie malnutrition - Bilateral lower extremities swelling likely due to hypoalbuminemia. 2-D echo showed normal EF. Plan: Continue on current medication regime ,monitoring and symptomatic treatment. Follow-up H&H.. gentle IV fluid hydration, PPI,. Patient is status post EGD and colonoscopy. If diarrhea recurs 24 hour stool collection quantitative fat will be sent as per GI recommendations. Outpatient workup including endoscopic ultrasound. Close monitoring of CBC, PT/INR, electrolytes. GI and oncology is following. Time with Patient: Greater than 30
--- NOTE | 2018-02-01 10:56 | P.PN ---
Subjective Progress Note Date: 01/31/18 Principal diagnosis: GI bleed and acute blood loss anemia profound unintentional weight loss, chronic diarrhea Interval history: This is a 77-year-old gentleman admitted with severe weakness , possible upper GI bleeding, acute blood loss anemia, acute UTI, severe dehydration, coagulopathy, elevated troponin and multiple other medical issues. Status post transfusions of packed RBCs with current hemoglobin 7.5. No further bleeding. potassium 3.4, being supplemented. INR 1.5. CT of abdomen and pelvis reported possible mild diverticulitis or colitis, bone metastasis to the lumbar spine, thoracic spine and pelvis difficult to exclude. Total bili 1.5, elevated alk phos trending down. Evaluated by GI with EGD and colonoscopy scheduled for tomorrow. Echo suboptimal, reporting normal LV function, EF 6065% , moderate concentric left ventricular hypertrophy, borderline pulmonary hypertension. Denies chest pain, palpitations, or increasing shortness of breath. Evaluated by cardiology with recommendations noted. 01/22/2018 symptomatic anemia-short of breath.NPO, awaiting EGD and colonoscopy today. INR 1.2. Receiving potassium supplementation. Magnesium level pending. Denies chest pain, palpitations. Hemoglobin remained 7.5 with no bleeding reported. 01/26/2018 Patient is status post EGD and colonoscopy. Patient also being worked up for unintentional weight loss. Patient had 2 cm broad-based polyp in the duodenal bulb with ulceration. No active bleeding. Neoplasm Could not be excluded. Awaiting biopsy report. Otherwise hemoglobin did drop to 8.2 today. From 8.6 yesterday. Oncology and GI is following. Patient denied any complaints of chest pain or shortness of breath. Patient does have diarrhea likely due to antibiotics. Patient did complete 7 days of antibiotics with Zosyn for urinary tract infection which will be discontinued at this time. Encourage ambulation and incentive spirometry as well as oral intake. Continue with Protonix otherwise. Patient had nuclear scan scan was done. 01/27/2018 Patient denied any complaints of chest pain or shortness of breath. Patient had an episode of heart rate going up to 130s. No compressive dizziness. No palpitations. No fever no chills. Patient still continues to have diarrhea. Started on Imodium. Oncology recommends outpatient follow-up with perihepatic lymph node biopsy. Patient is being followed for rehab transfer. Hemoglobin is 8.6 today. We will follow up EGD and colonoscopy biopsy reports. 01/28/2018 Patient denied any diarrhea today. No commerce of chest pain or shortness of breath. Patient is having worsening leg swelling. Recommended to elevate legs while in bed. Patient appears to be sitting in a chair most of the time. No fever no chills. No complaints of chest pain or shortness of breath. No nausea vomiting. Abdominal pain is much improved. Patient is agreeable to be transferred to rehab. 01/29/2018 Patient is still having diarrhea. Patient was started on Imodium currently. Patient was with leg elevation while in bed. Norvasc has been held. Continue with the diuretics. No complaints of chest pain or shortness of breath. No nausea vomiting or abdominal pain. 01/30/2018 Diarrhea did improve slightly. No complaints of chest pain or shortness of breath. Leg swelling is better with leg elevation. No complaints of chest pain or shortness of breath. No fever no chills. Patient is sitting on chair most of the time. Encourage ambulation. Possible rehab transfer on Thursday. 01/31/2018 Patient did have a large emesis this morning. Slightly nauseated. Otherwise no complaints of abdominal pain. Diarrhea is much better now. Otherwise patient still having bilateral lower swelling most likely dependent edema. Blood pressure is in the lower side. Patient will be continued on metoprolol and Dyazide. Norvasc has been held. No fever no chills. Hemoglobin has been fairly stable 2 days back. Denied any hematemesis or melena. No other acute overnight issues otherwise. Current medications reviewed Objective - Vital Signs Vital signs: Vital Signs Temp 98.3 F 01/31/18 07:30 Pulse 84 01/31/18 11:48 Resp 20 01/31/18 08:00 BP 144/71 01/31/18 07:30 Pulse Ox 94 L 01/31/18 07:30 Intake & Output 01/30/18 01/31/18 01/31/18 18:59 06:59 18:59 Intake Total 462 2700 Output Total 1 Balance 462 -1 2700 Intake: Oral 462 2700 Output: Stool 1 Other: Voiding Method Bedside Commode Diaper Urinal Incontinent # Voids 1 3 # Bowel Movements 1 1 1 - Exam PHYSICAL EXAMINATION: Patient is lying in the bed comfortably, no acute distress, awake alert and oriented. Morbid obesity. HEENT: Normocephalic. Neck is supple. Pupils reactive. Nostrils clear. Oral cavity is moist. Ears reveal no drainage. Neck reveals no JVD, carotid bruits, or thyromegaly. CHEST EXAMINATION: Trachea is central. Symmetrical expansion. Bibasilar diminished air entry. Lung hines clear to auscultation and percussion. CARDIAC: Normal S1, S2 with no gallops. No murmurs ABDOMEN: Soft. Bowel sounds normal. No organomegaly. No abdominal bruits. Extremities: 2+ edema. No clubbing or cyanosis Neurologically awake, alert, oriented x3 with well-coordinated movements. No focal deficits noted Skin: No rash or skin lesions. Psychiatric: Coperative. Nonsuicidal Musculoskeletal: No joint swelling or deformity. Normal range of motion. - Labs CBC & Chem 7: 02/01/18 06:20 02/01/18 06:20 Assessment and Plan Assessment: -Severe weakness, upper GI bleeding with acute blood loss anemia. 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 - Chronic diarrhea. Etiology unknown . 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 Diarrhea is improving with Imodium. -Acute UTI with sepsis. Urine culture showed 10 -49K E. coli. DC'd antibiotics. -Leukocytosis secondary to the above. Improved -Severe dehydration on admission -Troponin 0.085, indeterminate -Coagulopathy. INR was 1.5 currently improved to 1.2 -Morbid Obesity, BMI 41.8 -Hypokalemia -Hypoxia, secondary to symptomatic anemia. Currently saturating well on room air - Moderate protein calorie malnutrition - Bilateral lower extremities swelling likely due to hypoalbuminemia. 2-D echo showed normal EF. Plan: Continue on current medication regime ,monitoring and symptomatic treatment. Follow-up H&H.., PPI,. Patient is status post EGD and colonoscopy. If diarrhea recurs 24 hour stool collection quantitative fat will be sent as per GI recommendations. Outpatient workup including endoscopic ultrasound and also evaluate for carcinoid.. Close monitoring of CBC, PT/INR, electrolytes. GI and oncology is following. Time with Patient: Greater than 30
--- NOTE | 2018-02-01 12:13 | P.PN ---
Subjective Progress Note Date: 02/01/18 Principal diagnosis: anemia Patient seen and examined today. His blood counts remain stable/low Objective - Vital Signs Vital signs: Vital Signs Temp 98.1 F 02/01/18 07:00 Pulse 82 02/01/18 11:21 Resp 16 02/01/18 07:00 BP 106/55 02/01/18 07:00 Pulse Ox 93 L 02/01/18 07:00 Intake & Output 01/31/18 02/01/18 02/01/18 18:59 06:59 18:59 Intake Total 3200 40 360 Output Total 1 Balance 3200 39 360 Intake: Oral 3200 40 360 Output: Stool 1 Other: Voiding Method Toilet Diaper Diaper Diaper Incontinent Incontinent # Voids 2 2 # Bowel Movements 1 2 - Exam - Constitutional General appearance: Present: morbidly obese, no acute distress - Gastrointestinal General gastrointestinal: Present: normal bowel sounds, soft - Integumentary Integumentary: Present: pale, [place] appearing areas of rashing on legs and BLE edema - Neurologic Neurologic: Present: CNII-XII intact - Musculoskeletal Musculoskeletal: Present: generalized weakness - Psychiatric Psychiatric: Present: A&O x's 3, appropriate affect, intact judgment & insight - Labs CBC & Chem 7: 02/01/18 06:20 02/01/18 06:20 Labs: Abnormal Lab Results - Last 24 Hours (Table) 01/28/18 02/01/18 02/01/18 Range/Units 11:04 06:20 06:20 RBC 3.03 L (4.30-5.90) m/uL Hgb 8.4 L (13.0-17.5) gm/dL Hct 27.5 L (39.0-53.0) % MCHC 30.7 L (31.0-37.0) g/dL RDW 20.3 H (11.5-15.5) % Eosinophils # 0.8 H (0-0.7) k/uL Sodium 132 L (137-145) mmol/L Chloride 97 L (98-107) mmol/L BUN 21 H (9-20) mg/dL Glucose 117 H (74-99) mg/dL Calcium 7.8 L (8.4-10.2) mg/dL Chromogranin A 97 H (0-95) ng/mL Assessment and Plan Plan: CT scan - abdomen: report reviewed CT scan - pelvis: report reviewed Assessment and Plan (1) Anemia Narrative/Plan: Transfuse to keep Hgb>7. Previous work has been negative for correctable cause. More studies pending, GI to seen and evaluate pt - Biopsy was negative, although - Hemoglobin stabletoday - Chromagrananin mild increase (difficult to be considered significant) Seratonin Pending, LDH wnl Current Visit: Yes Status: Acute Priority: High Code(s): D64.9 - ANEMIA, UNSPECIFIED SNOMED Code(s): 303723231 (2) Coagulopathy - improved Narrative/Plan: Suspect due to vit K deficiency secondary to diarrhea, poor diet. Vit K given on 01/21/18. Agree with cont to monitor INR and adm parenteral vit K PRN Current Visit: Yes Status: Acute Priority: High Code(s): D68.9 - COAGULATION DEFECT, UNSPECIFIED SNOMED Code(s): 47033886 (3) Diarrhea Narrative/Plan: Chronic, GI work up pending. - Stool Studies in Process. - Status Post EGD and COlonoscopy with Biopsy Negative Current Visit: Yes Status: Acute Priority: High Code(s): R19.7 - DIARRHEA , UNSPECIFIED SNOMED Code(s): 97216159 Plan is for fecal fat stool study and laboratory evaluation for carcinoid.
[2018-02-01 14:45] VITALS: BP 107/66; TEMP 98.2
--- NOTE | 2018-02-01 16:07 | P.DS ---
Providers Date of admission: 01/20/18 11:55 Expected date of discharge: 02/01/18 Attending physician: Willie Shetty MD Consults: 01/20/18 18:04 Consult Physician Routine Consulting Provider: Cathy Browning Consult Reason/Comments: cad Do you want consulting provider notified?: Yes 01/20/18 21:02 Consult Physician Routine Consulting Provider: Shiva Goss Consult Reason/Comments: aaa, gi bleeding Do you want consulting provider notified?: Yes Consult Physician Routine Consulting Provider: Justin Nelson Consult Reason/Comments: malignancy?? Do you want consulting provider notified?: Yes 01/26/18 11:16 Consult Physician Routine Consulting Provider: Reji Valverde Consult Reason/Comments: evaluate for inpatient rehab Do you want consulting provider notified?: Yes Primary care physician: Kiya Espinoza Hospital Course: Discharge diagnosis -Severe weakness, upper GI bleeding with acute blood loss anemia. 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 Being evaluated for carcinoid. - Chronic diarrhea. Etiology unknown . 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 Diarrhea is improving with Imodium. -Acute UTI with sepsis. Urine culture showed 10 -49K E. coli. Was on Zosyn. DC'd antibiotics. -Leukocytosis secondary to the above. Improved -Severe dehydration on admission -Troponin 0.085, indeterminate -Coagulopathy. INR was 1.5 currently improved to 1.2 -Morbid Obesity, BMI 41.8 -Hypokalemia -Hypoxia, secondary to symptomatic anemia. Currently saturating well on room air - Moderate protein calorie malnutrition - Bilateral lower extremities swelling likely due to hypoalbuminemia. 2-D echo showed normal EF. Hospital course This is a 77-year-old gentleman admitted with severe weakness, possible upper GI bleeding, acute blood loss anemia, acute UTI, severe dehydration, coagulopathy, elevated troponin and multiple other medical issues. Status post transfusions of packed RBCs with current hemoglobin 7.5. No further bleeding. potassium 3.4, being supplemented. INR 1.5. CT of abdomen and pelvis reported possible mild diverticulitis or colitis, bone metastasis to the lumbar spine, thoracic spine and pelvis difficult to exclude. Total bili 1.5, elevated alk phos trending down. Evaluated by GI with EGD and colonoscopy scheduled for tomorrow. Echo suboptimal, reporting normal LV function, EF 6065%, moderate concentric left ventricular hypertrophy, borderline pulmonary hypertension. Denies chest pain, palpitations, or increasing shortness of breath. Evaluated by cardiology with recommendations noted. 01/22/2018 symptomatic anemia-short of breath.NPO, awaiting EGD and colonoscopy today. INR 1.2. Receiving potassium supplementation. Magnesium level pending. Denies chest pain, palpitations. Hemoglobin remained 7.5 with no bleeding reported. 01/26/2018 Patient is status post EGD and colonoscopy. Patient also being worked up for unintentional weight loss. Patient had 2 cm broad-based polyp in the duodenal bulb with ulceration. No active bleeding. Neoplasm Could not be excluded. Awaiting biopsy report. Otherwise hemoglobin did drop to 8.2 today. From 8.6 yesterday. Oncology and GI is following. Patient denied any complaints of chest pain or shortness of breath. Patient does have diarrhea likely due to antibiotics. Patient did complete 7 days of antibiotics with Zosyn for urinary tract infection which will be discontinued at this time. Encourage ambulation and incentive spirometry as well as oral intake. Continue with Protonix otherwise. Patient had nuclear scan scan was done. 01/27/2018 Patient denied any complaints of chest pain or shortness of breath. Patient had an episode of heart rate going up to 130s. No compressive dizziness. No palpitations. No fever no chills. Patient still continues to have diarrhea. Started on Imodium. Oncology recommends outpatient follow-up with perihepatic lymph node biopsy. Patient is being followed for rehab transfer. Hemoglobin is 8.6 today. We will follow up EGD and colonoscopy biopsy reports. 01/28/2018 Patient denied any diarrhea today. No commerce of chest pain or shortness of breath. Patient is having worsening leg swelling. Recommended to elevate legs while in bed. Patient appears to be sitting in a chair most of the time. No fever no chills. No complaints of chest pain or shortness of breath. No nausea vomiting. Abdominal pain is much improved. Patient is agreeable to be transferred to rehab. 01/29/2018 Patient is still having diarrhea. Patient was started on Imodium currently. Patient was with leg elevation while in bed. Norvasc has been held. Continue with the diuretics. No complaints of chest pain or shortness of breath. No nausea vomiting or abdominal pain. 01/30/2018 Diarrhea did improve slightly. No complaints of chest pain or shortness of breath. Leg swelling is better with leg elevation. No complaints of chest pain or shortness of breath. No fever no chills. Patient is sitting on chair most of the time. Encourage ambulation. Possible rehab transfer on Thursday. 01/31/2018 Patient did have a large emesis this morning. Slightly nauseated. Otherwise no complaints of abdominal pain. Diarrhea is much better now. Otherwise patient still having bilateral lower swelling most likely dependent edema. Blood pressure is in the lower side. Patient will be continued on metoprolol and Dyazide. Norvasc has been held. No fever no chills. Hemoglobin has been fairly stable 2 days back. Denied any hematemesis or melena. No other acute overnight issues otherwise. 02/01/2018 Patient denied any complaints of chest pain or shortness of breath today. Leg swelling is much improved with MANDY hoses. Otherwise patient will need fecal fat study to evaluate for carcinoid and outpatient followup with GI for EUS. Continue with loperamide when necessary for diarrhea. Continue with diuretics for lower extremities edema and repeat labs CBC and BMP in next 1-2 days. Follow-up with oncology and GI as outpatient. PHYSICAL EXAMINATION: Patient is lying in the bed comfortably, no acute distress, awake alert and oriented. Morbidly obese. HEENT: Normocephalic. Neck is supple. Pupils reactive. Nostrils clear. Oral cavity is moist. Ears reveal no drainage. Neck reveals no JVD, carotid bruits, or thyromegaly. CHEST EXAMINATION: Trachea is central. Symmetrical expansion. Bibasilar sclerae recently. Lung hines clear to auscultation and percussion. CARDIAC: Normal S1, S2 with no gallops. No murmurs ABDOMEN: Soft. Bowel sounds normal. No organomegaly. No abdominal bruits. Extremities: 2+ edema. No clubbing or cyanosis Neurologically awake, alert, oriented x3 with well-coordinated movements. No focal deficits noted Skin: No rash or skin lesions. Psychiatric: Coperative. Nonsuicidal Musculoskeletal: No joint swelling or deformity. Normal range of motion. Vital Signs 09/24/18 09/24/18 09/24/18 07:00 07:07 07:26 Temperature 98.1 F Pulse Rate 80 84 Pulse Rate [ 91 Pulse Oximetery ] Respiratory 16 Rate Blood Pressure 106/55 [Right Arm] O2 Sat by Pulse 93 L Oximetry 02/01/18 02/01/18 11:12 11:21 Temperature Pulse Rate 74 82 Pulse Rate [ Pulse Oximetery ] Respiratory Rate Blood Pressure [Right Arm] O2 Sat by Pulse Oximetry Total time taken greater than 35 minutes including 18 minutes for counseling and coordination of care. Patient Condition at Discharge: Fair Plan - Discharge Summary Discharge Rx Participant: No New Discharge Prescriptions: New Loperamide [Imodium] 2 mg PO QID #120 capsule Continue Aspirin 81 mg PO BID Omeprazole [PriLOSEC] 20 mg PO DAILY Metoprolol Tartrate [Lopressor] 25 mg PO BID Ubidecarenone [Coq-10] 100 mg PO DAILY Multivitamin [Men's Multi-Vitamin] 1 tab PO DAILY Albuterol Sulfate [Proair Hfa] 2 puff INHALATION RT-QID PRN PRN Reason: Shortness Of Breath Niacin 500 mg PO DAILY Triamterene-Hctz 37.5-25Mg [Dyazide 37.5-25 Capsule] 1 cap PO DAILY Pravastatin Sodium [Pravachol] 40 mg PO HS Cholecalciferol (Vitamin D3) [Vitamin D3] 2,000 unit PO DAILY Glycopyrrolate/Formoterol Fum [Bevespi Aerosphere Inhaler] 2 puff INHALATION RT-BID Cholestyramine (with Sugar) [Questran Packet] 4 gm PO DAILY Discontinued Felodipine ER [Plendil] 5 mg PO DAILY Discharge Medication List Aspirin 81 mg PO BID 11/06/13 [History] Metoprolol Tartrate [Lopressor] 25 mg PO BID 11/06/13 [History] Multivitamin [Men's Multi-Vitamin] 1 tab PO DAILY 11/06/13 [History] Omeprazole [PriLOSEC] 20 mg PO DAILY 11/06/13 [History] Ubidecarenone [Coq-10] 100 mg PO DAILY 11/06/13 [History] Albuterol Sulfate [Proair Hfa] 2 puff INHALATION RT-QID PRN 10/13/17 [History] Niacin 500 mg PO DAILY 10/13/17 [History] Cholecalciferol (Vitamin D3) [Vitamin D3] 2,000 unit PO DAILY 01/20/18 [History] Cholestyramine (with Sugar) [Questran Packet] 4 gm PO DAILY 01/20/18 [History] Glycopyrrolate/Formoterol Fum [Bevespi Aerosphere Inhaler] 2 puff INHALATION RT- BID 01/20/18 [History] Pravastatin Sodium [Pravachol] 40 mg PO HS 01/20/18 [History] Triamterene-Hctz 37.5-25Mg [Dyazide 37.5-25 Capsule] 1 cap PO DAILY 01/20/18 [ History] Loperamide [Imodium] 2 mg PO QID #120 capsule 01/27/18 [Rx] Follow up Appointment(s)/Referral(s): Maite Roy MD [STAFF PHYSICIAN] - 02/01/18 11:30 am Kiya Espinoza MD [Primary Care Provider] - 01/28/18 12:15 pm ()
[2018-02-01 16:10] VITALS: PULSE 91; RESP 16
== END 2018-02-01 17:10 | DRG 377 ==
LOC: EC 08:57 → 6SEL 11:55 → 3SUR 01-24 19:37
PROVIDERS: ADMIT Internal Medicine; ATTEND Internal Medicine
PROC: 30233N1 Transfusion of Nonautologous Red Blood Cells into Peripheral Vein, Percutaneous Approach (ICD-10-PCS; 2018-01-20)
PROC: 0DB98ZX Excision of Duodenum, Via Natural or Artificial Opening Endoscopic, Diagnostic (ICD-10-PCS; principal; 2018-01-22 14:25)
PROC: 0DBK8ZX Excision of Ascending Colon, Via Natural or Artificial Opening Endoscopic, Diagnostic (ICD-10-PCS; 2018-01-22 14:25)
PROC: 0DBM8ZX Excision of Descending Colon, Via Natural or Artificial Opening Endoscopic, Diagnostic (ICD-10-PCS; 2018-01-22 14:25)
DX: K29.81 Duodenitis with bleeding (principal); A41.51 Sepsis due to Escherichia coli [E. coli]; C79.51 Secondary malignant neoplasm of bone; D62 Acute posthemorrhagic anemia; D68.9 Coagulation defect, unspecified; E44.0 Moderate protein-calorie malnutrition; K57.32 Diverticulitis of large intestine without perforation or abscess without bleeding; N39.0 Urinary tract infection, site not specified; Z68.41 Body mass index [BMI] 40.0-44.9, adult; K52.1 Toxic gastroenteritis and colitis; I10 Essential (primary) hypertension; D12.2 Benign neoplasm of ascending colon; D69.6 Thrombocytopenia, unspecified; E66.01 Morbid (severe) obesity due to excess calories; E78.5 Hyperlipidemia, unspecified; E86.0 Dehydration; E87.6 Hypokalemia; G47.33 Obstructive sleep apnea (adult) (pediatric); I25.10 Atherosclerotic heart disease of native coronary artery without angina pectoris; I27.20 Pulmonary hypertension, unspecified; I71.4 Abdominal aortic aneurysm, without rupture; J44.9 Chronic obstructive pulmonary disease, unspecified; K26.9 Duodenal ulcer, unspecified as acute or chronic, without hemorrhage or perforation; K76.0 Fatty (change of) liver, not elsewhere classified; R09.02 Hypoxemia; Z85.828 Personal history of other malignant neoplasm of skin; Z86.73 Personal history of transient ischemic attack (TIA), and cerebral infarction without residual deficits; Z87.01 Personal history of pneumonia (recurrent); Z87.891 Personal history of nicotine dependence; T36.95XA Adverse effect of unspecified systemic antibiotic, initial encounter; R74.8 Abnormal levels of other serum enzymes; H91.91 Unspecified hearing loss, right ear; R26.9 Unspecified abnormalities of gait and mobility; Z79.82 Long term (current) use of aspirin; Z79.899 Other long term (current) drug therapy
CPT/HCPCS: 36415; 43239; 45380; 45385; 70260; 71046; 74177; 78306; 80048; 80053; 81001; 82272; 82378; 82550; 82553; 82607; 82728; 82746; 83540; 83550; 83605; 83615; 83735; 83880; 84132; 84165; 84260; 84443; 84484; 85025; 85045; 85610; 85652; 85730; 86140; 86316; 86850; 86900; 86901; 86920; 87040; 87077; 87086; 87186; 87324; 88305; 93005; 93306; 94640; 94760; 96360; 99285

== ENCOUNTER 2018-02-23 20:47 | Inpatient (IN) | payer MEDICARE, OTHER ==
--- NOTE | 2018-02-23 21:11 | ED ---
SOB HPI - General Chief Complaint: Shortness of Breath Stated Complaint: JANELL Time Seen by Provider: 02/23/18 20:57 Source: patient Mode of arrival: wheelchair Limitations: no limitations - History of Present Illness Initial Comments: This patient is 77-year-old man who presents to be alive for shortness of breath. He states that this is been going on since she [facility] one week ago. He had been admitted here in the hospital prior to that for GI bleeding and anemia, requiring transfusions. Patient states that he just is not feeling any better. Shortness of breath is worse if he lies flat. He also is having a little bit of cough which brings up some clear white sputum at times. Patient denies fever or chills. No chest pain. States that the swelling in his legs appears a bit better than when he had been admitted to the hospital last time. MD Complaint: shortness of breath Onset/Timin -: week(s) Severity: moderate Severity scale (1-10): 0 Consistency: constant Improves With: upright position Worsens With: lying flat Known History Of: congestive heart failure, other (Anemia) Associated Symptoms: cough - Related Data Home Oxygen Therapy: No Home Medications Medication Instructions Recorded Confirmed Aspirin 81 mg PO BID 11/06/13 02/23/18 Metoprolol Tartrate [Lopressor] 25 mg PO BID 11/06/13 02/23/18 Multivitamin [Men's Multi-Vitamin] 1 tab PO DAILY 11/06/13 02/23/18 Omeprazole [PriLOSEC] 20 mg PO DAILY 11/06/13 02/23/18 Ubidecarenone [Coq-10] 100 mg PO DAILY 11/06/13 02/23/18 Albuterol Sulfate [Proair Hfa] 2 puff INHALATION RT-QID PRN 10/13/17 02/23/18 Niacin 500 mg PO DAILY 10/13/17 02/23/18 Cholecalciferol (Vitamin D3) 2,000 unit PO DAILY 01/20/18 02/23/18 [Vitamin D3] Cholestyramine (with Sugar) 4 gm PO DAILY 01/20/18 02/23/18 [Questran Packet] Glycopyrrolate/Formoterol Fum 2 puff INHALATION RT-BID 01/20/18 02/23/18 [Bevespi Aerosphere Inhaler] Pravastatin Sodium [Pravachol] 40 mg PO HS 01/20/18 02/23/18 Triamterene-Hctz 37.5-25Mg 1 cap PO DAILY 01/20/18 02/23/18 [Dyazide 37.5-25 Capsule] Previous Rx's Medication Instructions Recorded Loperamide [Imodium] 2 mg PO QID #120 capsule 01/27/18 Allergies Allergy/AdvReac Type Severity Reaction Status Date / Time No Known Allergies Allergy Verified 02/23/18 21:19 Review of Systems ROS Statement: Those systems with pertinent positive or pertinent negative responses have been documented in the HPI. ROS Other: All systems not noted in ROS Statement are negative. Constitutional: Reports: weakness (Generalized). Denies: fever, chills ENT: Denies: congestion Respiratory: Reports: cough, dyspnea. Denies: wheezes, hemoptysis, stridor Cardiovascular: Reports: orthopnea, edema (Chronic). Denies: chest pain, palpitations, syncope Gastrointestinal: Denies: abdominal pain, nausea, vomiting, diarrhea, melena, hematochezia Genitourinary: Denies: dysuria Musculoskeletal: Denies: back pain Skin: Denies: rash Neurological: Denies: headache, weakness, numbness Past Medical History Past Medical History: Cancer, COPD, CVA/TIA, Hyperlipidemia, Hypertension, Pneumonia Additional Past Medical History / Comment(s): SMALL AAA, TIA, CVA and has had vertigo/difficulty ambulating, difficulty writing and decreased hearing with R ear since, CATE with Cpap use, skin cancer with removal. History of Any Multi-Drug Resistant Organisms: None Reported Past Surgical History: Appendectomy, Tonsillectomy Additional Past Surgical History / Comment(s): Skin cancer removal, colonoscopy Past Anesthesia/Blood Transfusion Reactions: No Reported Reaction Past Psychological History: No Psychological Hx Reported Smoking Status: Former smoker - Past Family History Father Family Medical History: No Reported History Mother Family Medical History: Osteoarthritis (OA) General Exam Limitations: no limitations General appearance: alert, in no apparent distress Head exam: Present: atraumatic, normocephalic Eye exam: Present: normal appearance. Absent: scleral icterus, conjunctival injection ENT exam: Present: normal oropharynx Respiratory exam: Present: rales (I lateral bases). Absent: respiratory distress, wheezes, rhonchi, stridor Cardiovascular Exam: Present: regular rate, normal rhythm, normal heart sounds. Absent: systolic murmur, diastolic murmur, rubs, gallop GI/Abdominal exam: Present: soft. Absent: distended, tenderness, guarding, rebound, rigid, mass Extremities exam: Present: normal inspection, normal capillary refill, pedal edema (There is pitting edema bilaterally toThe knees, but they state that this is better than the last time he had entered the hospital). Absent: calf tenderness Back exam: Present: normal inspection. Absent: CVA tenderness (R), CVA tenderness (L) Neurological exam: Present: alert Skin exam: Present: warm, dry, intact, normal color. Absent: rash Course Vital Signs 02/23/18 02/23/18 02/23/18 20:49 21:33 21:40 Temperature 98.2 F Pulse Rate 95 87 Respiratory 22 18 Rate Blood Pressure 107/60 113/68 113/68 O2 Sat by Pulse 95 93 L Oximetry 02/23/18 02/23/18 02/23/18 21:50 21:56 22:00 Temperature Pulse Rate 86 84 Respiratory 18 17 Rate Blood Pressure 113/68 113/68 O2 Sat by Pulse 95 91 L Oximetry 02/23/18 02/23/18 02/23/18 22:10 22:20 22:30 Temperature Pulse Rate 84 91 85 Respiratory 24 17 22 Rate Blood Pressure 100/71 100/71 100/71 O2 Sat by Pulse 95 94 L 95 Oximetry 02/23/18 02/23/18 02/23/18 22:40 22:50 23:00 Temperature Pulse Rate 86 87 84 Respiratory 24 24 25 H Rate Blood Pressure 100/71 100/71 100/71 O2 Sat by Pulse 95 95 95 Oximetry 02/23/18 02/23/18 02/23/18 23:10 23:20 23:30 Temperature Pulse Rate 86 85 Respiratory 24 23 Rate Blood Pressure 132/68 132/68 132/68 O2 Sat by Pulse 95 96 Oximetry 02/23/18 02/23/18 02/24/18 23:40 23:50 00:00 Temperature Pulse Rate 85 82 Respiratory 22 17 Rate Blood Pressure 132/68 132/68 132/68 O2 Sat by Pulse 96 93 L Oximetry Medical Decision Making - Lab Data Result diagrams: 02/23/18 21:29 02/23/18 21:29 Lab Results 02/23/18 02/23/18 02/23/18 Range/Units 21:29 21:29 21:29 WBC 9.4 (3.8-10.6) k/uL RBC 3.64 L (4.30-5.90) m/uL Hgb 10.2 L (13.0-17.5) gm/dL Hct 32.8 L (39.0-53.0) % MCV 90.0 (80.0-100.0) fL MCH 28.1 (25.0-35.0) pg MCHC 31.3 (31.0-37.0) g/dL RDW 19.5 H (11.5-15.5) % Plt Count 138 L (150-450) k/uL Neutrophils % 57 % Lymphocytes % 9 % Monocytes % 9 % Eosinophils % 20 % Basophils % 1 % Neutrophils # 5.4 (1.3-7.7) k/uL Lymphocytes # 0.8 L (1.0-4.8) k/uL Monocytes # 0.8 (0-1.0) k/uL Eosinophils # 1.9 H (0-0.7) k/uL Basophils # 0.1 (0-0.2) k/uL Hypochromasia Marked Anisocytosis Slight PT 11.8 (9.0-12.0) sec INR 1.2 H (<1.2) APTT 24.8 (22.0-30.0) sec D-Dimer 2.15 H (<0.60) mg/L FEU Sodium 133 L (137-145) mmol/L Potassium 3.8 (3.5-5.1) mmol/L Chloride 101 (98-107) mmol/L Carbon Dioxide 23 (22-30) mmol/L Anion Gap 9 mmol/L BUN 39 H (9-20) mg/dL Creatinine 1.09 (0.66-1.25) mg/dL Est GFR (CKD-EPI)AfAm 75 (>60 ml/min/1.73 sqM) Est GFR (CKD-EPI)NonAf 65 (>60 ml/min/1.73 sqM) Glucose 128 H (74-99) mg/dL Calcium 8.2 L (8.4-10.2) mg/dL Total Bilirubin 2.2 H (0.2-1.3) mg/dL AST 58 (17-59) U/L ALT 33 (21-72) U/L Alkaline Phosphatase 663 H (38-126) U/L Total Creatine Kinase (55-170) U/L CK-MB (CK-2) (0.0-2.4) ng/mL CK-MB (CK-2) Rel Index Troponin I (0.000-0.034) ng/mL NT-Pro-B Natriuret Pep pg/mL Total Protein 7.1 (6.3-8.2) g/dL Albumin 2.4 L (3.5-5.0) g/dL 02/23/18 02/23/18 Range/Units 21:29 21:29 WBC (3.8-10.6) k/uL RBC (4.30-5.90) m/uL Hgb (13.0-17.5) gm/dL Hct (39.0-53.0) % MCV (80.0-100.0) fL MCH (25.0-35.0) pg MCHC (31.0-37.0) g/dL RDW (11.5-15.5) % Plt Count (150-450) k/uL Neutrophils % % Lymphocytes % % Monocytes % % Eosinophils % % Basophils % % Neutrophils # (1.3-7.7) k/uL Lymphocytes # (1.0-4.8) k/uL Monocytes # (0-1.0) k/uL Eosinophils # (0-0.7) k/uL Basophils # (0-0.2) k/uL Hypochromasia Anisocytosis PT (9.0-12.0) sec INR (<1.2) APTT (22.0-30.0) sec D-Dimer (<0.60) mg/L FEU Sodium (137-145) mmol/L Potassium (3.5-5.1) mmol/L Chloride (98-107) mmol/L Carbon Dioxide (22-30) mmol/L Anion Gap mmol/L BUN (9-20) mg/dL Creatinine (0.66-1.25) mg/dL Est GFR (CKD-EPI)AfAm (>60 ml/min/1.73 sqM) Est GFR (CKD-EPI)NonAf (>60 ml/min/1.73 sqM) Glucose (74-99) mg/dL Calcium (8.4-10.2) mg/dL Total Bilirubin (0.2-1.3) mg/dL AST (17-59) U/L ALT (21-72) U/L Alkaline Phosphatase (38-126) U/L Total Creatine Kinase 26 L (55-170) U/L CK-MB (CK-2) 0.6 (0.0-2.4) ng/mL CK-MB (CK-2) Rel Index 2.3 Troponin I 0.023 (0.000-0.034) ng/mL NT-Pro-B Natriuret Pep 482 pg/mL Total Protein (6.3-8.2) g/dL Albumin (3.5-5.0) g/dL - EKG Data -: EKG Interpreted by Me EKG shows normal: sinus rhythm, axis (Normal), intervals (Normal), QRS complexes (Normal), ST-T waves (Normal) Rate: normal (Rate 88 bpm) Interpretation: acute GA Disposition Clinical Impression: Dyspnea, COPD (chronic obstructive pulmonary disease) Disposition: ADMITTED IP TO THIS HOSP Condition: Fair Is patient prescribed a controlled substance at d/c from ED?: No Referrals: Kiya Espinoza MD [Primary Care Provider] - 1-2 days
[2018-02-23 21:50] LABS: Anisocytosis Slight; Basophils # (A) 0.1 k/uL (0-0.2); Basophils % (A) 1 %; Eosinophils # (A) 1.9 k/uL (0-0.7); Eosinophils % (A) 20 %; HCT 32.8 % (39.0-53.0); HGB 10.2 gm/dL (13.0-17.5); Hypochromasia Marked; Lymphocytes # (A) 0.8 k/uL (1.0-4.8); Lymphocytes % (A) 9 %; MCH 28.1 pg (25.0-35.0); MCHC 31.3 g/dL (31.0-37.0); Mean Platelet Volume 8.1; Monocytes # (A) 0.8 k/uL (0-1.0); Monocytes % (A) 9 %; Neutrophils # (A) 5.4 k/uL (1.3-7.7); Neutrophils % (A) 57 %; Platelet Count 138 k/uL (150-450); RBC 3.64 m/uL (4.30-5.90); RDW 19.5 % (11.5-15.5); WBC 9.4 k/uL (3.8-10.6)
--- NOTE | 2018-02-23 21:53 | XR ---
EXAMINATION TYPE: XR chest 2V DATE OF EXAM: 02/23/2018 COMPARISON: 01/20/2018 HISTORY: Short of breath TECHNIQUE: Frontal and lateral views of the chest are obtained. FINDINGS: Heart size is normal. There is no heart failure. On the lateral view there is infiltrate a t the left posterior lung base. There are chest leads. Bony thorax is intact. IMPRESSION: There is new left lower lobe pneumonia compared to old exam.
[2018-02-23 21:55] LABS: Albumin 2.4 g/dL (3.5-5.0); Calcium 8.2 mg/dL (8.4-10.2); Potassium 3.8 mmol/L (3.5-5.1); Total Bilirubin 2.2 mg/dL (0.2-1.3); Total Protein 7.1 g/dL (6.3-8.2)
[2018-02-23 22:05] LABS: INR 1.2 (<1.2); Partial Thromboplastin Time 24.8 sec (22.0-30.0); Prothrombin Time 11.8 sec (9.0-12.0)
[2018-02-23 22:13] LABS: D-Dimer 2.15 mg/L FEU (<0.60)
[2018-02-23 22:16] LABS: Creatine Kinase MB 0.6 ng/mL (0.0-2.4); Troponin I 0.023 ng/mL (0.000-0.034)
--- NOTE | 2018-02-24 00:09 | US ---
EXAMINATION TYPE: US venous doppler duplex LE DATE OF EXAM: 02/23/2018 11:30 PM COMPARISON: NONE CLINICAL HISTORY: Pain. Pain. SIDE PERFORMED: Bilateral TECHNIQUE: The lower extremity deep venous system is examined utilizing real time linear array sonog alexy with graded compression, doppler sonography and color-flow sonography. VESSELS IMAGED: External Iliac Vein (EIV) Common Femoral Vein Deep Femoral Vein Greater Saphenous Vein * Femoral Vein Popliteal Vein Small Saphenous Vein * Proximal Calf Veins (* superficial vessels) Right Leg: Negative for DVT Left Leg: Negative for DVT No evidence of DVT bilateral legs. IMPRESSION: Negative exam. No deep venous thrombosis in both legs.
--- NOTE | 2018-02-24 00:09 | CT ---
EXAMINATION TYPE: CT chest angio for PE DATE OF EXAM: 02/23/2018 COMPARISON: None HISTORY: No prior, increased SOB, elevated d-dimer R/O PE CT DLP: 644.50 mGycm Automated exposure control for dose reduction was used. CONTRAST: CT Chest for pulmonary embolism performed with with IV Contrast, patient injected with 75 mL of Isovu e 370. FINDINGS: There are 3-D post processed images. There are bilateral pleural effusions. There is some mild atelectasis at the lung bases. I see no parvez ling defects in the pulmonary arteries. There are small mediastinal lymph nodes that measure up to 1. 2 cm. There are similar up to 1. cm bronchial lymph nodes. Thoracic aorta shows no aneurysm or dissec tion. The spleen is enlarged and measures 17 cm. Liver is relatively small consistent with cirrhosis. There is moderate ascites. There is diffuse osteoblastic change in the visualized bony thorax. IMPRESSION: No evidence of pulmonary embolism. Cirrhosis and splenomegaly. Massive ascites. Bilateral pleural eff usions. Osteoblastic changes but could relate to metastatic disease. Nonspecific multiple mediastinal and bronchial lymph nodes.
[2018-02-24] MEDS ORDERED: ALBUTEROL NEBULIZED 2.5 MG/3 ML INHALATION STA (00:45)
[2018-02-24] MEDS ORDERED: IPRATROPIUM-ALBUTEROL 3 ML NEB INHALATION PRN ×2 (01:09→11:43)
[2018-02-24 02:32] VITALS: BMI 44.6
--- NOTE | 2018-02-24 11:47 | P.CNPUL ---
History of Present Illness Consult date: 02/24/18 Reason for consult: dyspnea, cough, COPD, hypoxemia, pneumonia, abnormal CXR/CT Chief complaint: Orthopnea, cough, phlegm production, COPD exacerbation, ascites History of present illness: Pulmonary consult dated 02/24/2018 77-year-old male who apparently sees Dr. Espinoza in [facility], who presents to the emergency room on February 24 for shortness of breath. Apparently just been going on for some time. He apparently was recently in the care home and last about a week ago. Prior to that he was admitted to [facility] for GI bleeding and anemia. At that time he required blood transfusions. Currently feeling very short of breath. He describes not being able to lay flat or sleep. In addition, he has cough and some phlegm production which is white to yellow in color. No fever chills or chest pain. In addition he has difficulty edema of the lower extremities. We saw him down in the observation unit. No decision about whether or not he'll be admitted but we did recommend to the nurse that the patient probably should be admitted for a diagnosis of COPD exacerbation purulent tracheobronchitis and possible bronchopneumonia left lower lobe. The patient is not a particularly good historian. We'll see him in observation along with the nurse and my nurse practitioner. The patient is a smoker. He sees one of my partners for COPD. He has a history of CVA COPD hyperlipidemia hypertension pneumonia GI bleed abdominal aortic aneurysm TIA/CVA vertigo sleep apnea and skin cancer. The patient is a former smoker. Does not smoke currently. Apparently, my partner has them on a combination long-acting muscarinic antagonist/long-acting beta agonist as well as a short acting beta agonists for his COPD. He has NO KNOWN DRUG ALLERGIES. In the observation unit, he is wearing nasal O2. Review of Systems A 14 point review of system is positive for shortness of breath inability lay flat because of difficulty breathing/orthopnea, cough, and phlegm production. Past Medical History Past Medical History: Cancer, COPD, CVA/TIA, Hyperlipidemia, Hypertension, Pneumonia Additional Past Medical History / Comment(s): SMALL AAA, TIA, CVA - approx 2014 and has had vertigo/difficulty ambulating, difficulty writing and decreased hearing with R ear since, CATE with Cpap use, skin cancer with removal. History of Any Multi-Drug Resistant Organisms: None Reported Past Surgical History: Appendectomy, Tonsillectomy Additional Past Surgical History / Comment(s): Skin cancer removal, colonoscopy Past Anesthesia/Blood Transfusion Reactions: No Reported Reaction Past Psychological History: No Psychological Hx Reported Additional Psychological History / Comment(s): Pt resides with his spouse of 57yrs. He uses a cane to ambulate. He does not drive, his spouse takes him to [employer]. 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 Smoking Status: Former smoker Past Alcohol Use History: None Reported Additional Past Alcohol Use History / Comment(s): Pt started smoking in 1958 and quit in 1987 Past Drug Use History: None Reported - Past Family History Father Family Medical History: No Reported History Mother Family Medical History: Osteoarthritis (OA) Medications and Allergies Home Medications Medication Instructions Recorded Confirmed Type Aspirin 81 mg PO BID 11/06/13 02/23/18 History Metoprolol Tartrate [Lopressor] 25 mg PO BID 11/06/13 02/23/18 History Multivitamin [Men's Multi-Vitamin] 1 tab PO DAILY 11/06/13 02/23/18 History Omeprazole [PriLOSEC] 20 mg PO DAILY 11/06/13 02/23/18 History Ubidecarenone [Coq-10] 100 mg PO DAILY 11/06/13 02/23/18 History Albuterol Sulfate [Proair Hfa] 2 puff INHALATION RT-QID PRN 10/13/17 02/23/18 History Niacin 500 mg PO DAILY 10/13/17 02/23/18 History Cholecalciferol (Vitamin D3) 2,000 unit PO DAILY 01/20/18 02/23/18 History [Vitamin D3] Cholestyramine (with Sugar) 4 gm PO DAILY 01/20/18 02/23/18 History [Questran Packet] Glycopyrrolate/Formoterol Fum 2 puff INHALATION RT-BID 01/20/18 02/23/18 History [Bevespi Aerosphere Inhaler] Pravastatin Sodium [Pravachol] 40 mg PO HS 01/20/18 02/23/18 History Triamterene-Hctz 37.5-25Mg 1 cap PO DAILY 01/20/18 02/23/18 History [Dyazide 37.5-25 Capsule] Loperamide [Imodium] 2 mg PO QID #120 capsule 01/27/18 02/23/18 Rx Allergies Allergy/AdvReac Type Severity Reaction Status Date / Time No Known Allergies Allergy Verified 02/23/18 21:19 Physical Exam Osteopathic Statement: *. No significant issues noted on an osteopathic structural exam other than those noted in the History and Physical/Consult. Vitals: Vital Signs Temp Pulse Pulse Resp BP BP Pulse Ox 02/24/18 08:00 98.1 F 96 16 139/75 94 L 02/24/18 03:05 20 02/24/18 02:15 97.6 F 87 20 124/62 93 L 02/24/18 01:53 86 02/24/18 01:45 84 02/24/18 01:00 87 20 138/66 96 02/24/18 00:02 79 18 138/66 94 L 02/24/18 00:00 82 17 132/68 93 L 02/23/18 23:50 85 22 132/68 96 02/23/18 23:40 132/68 02/23/18 23:30 132/68 02/23/18 23:20 85 23 132/68 96 02/23/18 23:10 86 24 132/68 95 02/23/18 23:00 84 25 H 100/71 95 02/23/18 22:50 87 24 100/71 95 02/23/18 22:40 86 24 100/71 95 02/23/18 22:30 85 22 100/71 95 02/23/18 22:20 91 17 100/71 94 L 02/23/18 22:10 84 24 100/71 95 02/23/18 22:00 84 17 113/68 91 L 02/23/18 21:56 18 02/23/18 21:50 86 113/68 95 02/23/18 21:40 113/68 02/23/18 21:33 87 18 113/68 93 L 02/23/18 20:49 98.2 F 95 22 107/60 95 Intake and Output 02/23/18 02/24/18 02/24/18 22:59 06:59 14:59 Other: Voiding Method Diaper Diaper # Voids 1 Weight 145.15 kg 147 kg The patient is oriented 3, is wearing nasal O2, it appears to have some mild tachypnea and dyspnea. HEENT examination is grossly unremarkable. Mucous membranes are moist. No oral lesions. Neck supple. Full range of motion. No adenopathy thyromegaly or neck vein distention. Cardiovascular examination reveals regular rhythm rate. S1-S2 normal. No S3 or S4. No discernible murmur noted. Heart sounds are distant. Lungs reveal bibasilar crackles. There are some expiratory wheezes and rhonchi. Breath sounds are diminished. Breath sounds are equal bilaterally.. Abdomen obese with possible ascites. No tenderness or masses. Extremities reveal lower extremity edema. It's pitting. Skin reveals some mild chronic venous stasis changes. Neurologic examination is brief but nonfocal. Results - Laboratory Findings CBC and BMP: 02/23/18 21:29 02/23/18 21:29 PT/INR, D-dimer PT 11.8 sec (9.0-12.0) 02/23/18 21:29 INR 1.2 (<1.2) H 02/23/18 21:29 D-Dimer 2.15 mg/L FEU (<0.60) H 02/23/18 21:29 Abnormal lab findings: Abnormal Labs 02/23/18 02/23/18 02/23/18 21:29 21:29 21:29 RBC 3.64 L Hgb 10.2 L Hct 32.8 L RDW 19.5 H Plt Count 138 L Lymphocytes # 0.8 L Eosinophils # 1.9 H INR 1.2 H D-Dimer 2.15 H Sodium 133 L BUN 39 H Glucose 128 H Calcium 8.2 L Total Bilirubin 2.2 H Alkaline Phosphatase 663 H Total Creatine Kinase Albumin 2.4 L 02/23/18 21:29 RBC Hgb Hct RDW Plt Count Lymphocytes # Eosinophils # INR D-Dimer Sodium BUN Glucose Calcium Total Bilirubin Alkaline Phosphatase Total Creatine Kinase 26 L Albumin - Diagnostic Findings Chest x-ray: report reviewed, image reviewed CT scan - chest: report reviewed, image reviewed U/S of Legs: report reviewed, image reviewed (Labs, x-rays, medications, computed tomography scan, and Dopplers are all reviewed.) Assessment and Plan Assessment: Assessment Shortness of breath, multifactorial, related to a COPD exacerbation complicated by purulent tracheobronchitis as bronchopneumonia left lower lobe, as well as ascites and possible underlying liver disease. Hypoxemic respiratory failure as above No evidence of pulmonary embolism by CT angiogram Cirrhosis/splenomegaly and massive ascites Bony thorax osteoblastic changes, rule out metastatic disease History of skin cancer History of hyperlipidemia History of hypertension Recent admission to the hospital for GI bleed and anemia, requiring blood transfusion History of sleep apnea syndrome History of TIA/CVA Multiple other medical problems and comorbidities Plan: Plan dated 02/24/2018 The patient should be admitted to the hospital. We've added updrafts and long- acting beta agonist and inhaled corticosteroids to his regimen. We've also added some antibiotic and some steroids. The patient's cirrhosis/splenomegaly and ascites will have to be evaluated by gastroenterology. His overall prognosis remains guarded. Labs x-rays a medications are reviewed. No evidence of pulmonary embolus him on CT angiogram. White count 9.4, hemoglobin 10.2, hematocrit 32.8, and platelet count 138,000. Sodium 133, with a normal potassium chloride and CO2. BUN and creatinine were 39 and 1.09 suggesting prerenal azotemia. The rest of the labs and medications are reviewed. Time with Patient: Greater than 30
[2018-02-24] MEDS: IPRATROPIUM-ALBUTEROL 3 ML NEB INHALATION SCH ×3 (12:55→21:01)
[2018-02-24] MEDS: methylPREDNISolone SOD SUCCI 125 MG/2 ML VIAL IV SCH ×2 (13:50→19:35)
[2018-02-24] MEDS: PANTOPRAZOLE 40 MG/10 ML VIAL IVP SCH (13:50)
[2018-02-24] MEDS: LEVOFLOXACIN 750MG-D5W PMX 750 MG in DEXTROSE/WATER 1 150ML.BAG IVPB SCH (13:50)
--- NOTE | 2018-02-24 15:12 | P.HPIM ---
History of Present Illness 77-year-old gentleman was discharged about a month ago from the hospital to subacute rehabilitation came in with compensative shortness of breath is wheezing on exam patient is comparing of cough with sputum production denied any fever chills patient doesn't have any significant leukocytosis, CT angios the chest did not show any pneumonic process but appear to have severe bronchitis patient was evaluated by pulmonary and patient was started on antibiotics and inhalational treatments and systemic steroids. Patient is also found to have bilateral pleural effusions massive ascites patient's INR is elevated to 1.2 patient appears to have a mediastinal lymphadenopathy with some osteoblastic changes in the bones. As mentioned above pulmonary evaluated the patient. 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 Patient denied any fever chills Review of Systems REVIEW OF SYSTEMS: CONSTITUTIONAL: No fever, no malaise, no fatigue. HEENT: No recent visual problems or hearing problems. Denied any sore throat. CARDIOVASCULAR: No chest pain, orthopnea, PND, no palpitations, no syncope. PULMONARY: no hemoptysis. GASTROINTESTINAL: No diarrhea, no nausea, no vomiting, no abdominal pain. Normoactive bowel sounds. NEUROLOGICAL: No headaches, no weakness, no numbness. HEMATOLOGICAL: Denies any bleeding or petechiae. GENITOURINARY: Denies any burning micturition, frequency, or urgency. MUSCULOSKELETAL/RHEUMATOLOGICAL: Denies any joint pain, swelling, or any muscle pain. ENDOCRINE: Denies any polyuria or polydipsia. The rest of the 14-point review of systems is negative. Past Medical History Past Medical History: Cancer, COPD, CVA/TIA, Hyperlipidemia, Hypertension, Pneumonia Additional Past Medical History / Comment(s): SMALL AAA, TIA, CVA - approx 2014 and has had vertigo/difficulty ambulating, difficulty writing and decreased hearing with R ear since, CATE with Cpap use, skin cancer with removal. History of Any Multi-Drug Resistant Organisms: None Reported Past Surgical History: Appendectomy, Tonsillectomy Additional Past Surgical History / Comment(s): Skin cancer removal, colonoscopy Past Anesthesia/Blood Transfusion Reactions: No Reported Reaction Past Psychological History: No Psychological Hx Reported Additional Psychological History / Comment(s): Pt resides with his spouse of 57yrs. He uses a cane to ambulate. He does not drive, his spouse takes him to [employer]. 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 Smoking Status: Former smoker Past Alcohol Use History: None Reported Additional Past Alcohol Use History / Comment(s): Pt started smoking in 1958 and quit in 1987 Past Drug Use History: None Reported - Past Family History Father Family Medical History: No Reported History Mother Family Medical History: Osteoarthritis (OA) Medications and Allergies Home Medications Medication Instructions Recorded Confirmed Type Aspirin 81 mg PO BID 11/06/13 02/23/18 History Metoprolol Tartrate [Lopressor] 25 mg PO BID 11/06/13 02/23/18 History Multivitamin [Men's Multi-Vitamin] 1 tab PO DAILY 11/06/13 02/23/18 History Omeprazole [PriLOSEC] 20 mg PO DAILY 11/06/13 02/23/18 History Ubidecarenone [Coq-10] 100 mg PO DAILY 11/06/13 02/23/18 History Albuterol Sulfate [Proair Hfa] 2 puff INHALATION RT-QID PRN 10/13/17 02/23/18 History Niacin 500 mg PO DAILY 10/13/17 02/23/18 History Cholecalciferol (Vitamin D3) 2,000 unit PO DAILY 01/20/18 02/23/18 History [Vitamin D3] Cholestyramine (with Sugar) 4 gm PO DAILY 01/20/18 02/23/18 History [Questran Packet] Glycopyrrolate/Formoterol Fum 2 puff INHALATION RT-BID 01/20/18 02/23/18 History [Bevespi Aerosphere Inhaler] Pravastatin Sodium [Pravachol] 40 mg PO HS 01/20/18 02/23/18 History Triamterene-Hctz 37.5-25Mg 1 cap PO DAILY 01/20/18 02/23/18 History [Dyazide 37.5-25 Capsule] Loperamide [Imodium] 2 mg PO QID #120 capsule 01/27/18 02/23/18 Rx Allergies Allergy/AdvReac Type Severity Reaction Status Date / Time No Known Allergies Allergy Verified 02/23/18 21:19 Physical Exam Vitals: Vital Signs Temp Pulse Pulse Resp BP BP Pulse Ox 02/24/18 13:06 92 02/24/18 12:58 96 02/24/18 12:00 96 16 02/24/18 08:00 98.1 F 96 16 139/75 94 L 02/24/18 03:05 20 02/24/18 02:15 97.6 F 87 20 124/62 93 L 02/24/18 01:53 86 02/24/18 01:45 84 02/24/18 01:00 87 20 138/66 96 02/24/18 00:02 79 18 138/66 94 L 02/24/18 00:00 82 17 132/68 93 L 02/23/18 23:50 85 22 132/68 96 02/23/18 23:40 132/68 02/23/18 23:30 132/68 02/23/18 23:20 85 23 132/68 96 02/23/18 23:10 86 24 132/68 95 02/23/18 23:00 84 25 H 100/71 95 02/23/18 22:50 87 24 100/71 95 02/23/18 22:40 86 24 100/71 95 02/23/18 22:30 85 22 100/71 95 02/23/18 22:20 91 17 100/71 94 L 02/23/18 22:10 84 24 100/71 95 02/23/18 22:00 84 17 113/68 91 L 02/23/18 21:56 18 02/23/18 21:50 86 113/68 95 02/23/18 21:40 113/68 02/23/18 21:33 87 18 113/68 93 L 02/23/18 20:49 98.2 F 95 22 107/60 95 Intake and Output 02/24/18 02/24/18 02/24/18 06:59 14:59 22:59 Other: Voiding Method Diaper Diaper # Voids 1 Weight 147 kg PHYSICAL EXAMINATION: GENERAL: The patient is alert and oriented x3, not in any acute distress. Morbidly obese HEENT: Pupils are round and equally reacting to light. EOMI. No scleral icterus. No conjunctival pallor. Normocephalic, atraumatic. No pharyngeal erythema. No thyromegaly. CARDIOVASCULAR: S1 and S2 present. No murmurs, rubs, or gallops. PULMONARY: Significant expiratory wheezing significantly limited air entry into bilateral lung hines ABDOMEN: Soft, distended, poised to fluid shift ascites along with pitting pedal edema MUSCULOSKELETAL: No joint swelling or deformity. EXTREMITIES: No cyanosis, clubbing, NEUROLOGICAL: Gross neurological examination did not reveal any focal deficits. SKIN: No rashes. Results CBC & Chem 7: 02/23/18 21:29 02/23/18 21:29 Labs: Abnormal Lab Results - Last 24 Hours (Table) 02/23/18 02/23/18 02/23/18 Range/Units 21:29 21:29 21:29 RBC 3.64 L (4.30-5.90) m/uL Hgb 10.2 L (13.0-17.5) gm/dL Hct 32.8 L (39.0-53.0) % RDW 19.5 H (11.5-15.5) % Plt Count 138 L (150-450) k/uL Lymphocytes # 0.8 L (1.0-4.8) k/uL Eosinophils # 1.9 H (0-0.7) k/uL INR 1.2 H (<1.2) D-Dimer 2.15 H (<0.60) mg/L FEU Sodium 133 L (137-145) mmol/L BUN 39 H (9-20) mg/dL Glucose 128 H (74-99) mg/dL Calcium 8.2 L (8.4-10.2) mg/dL Total Bilirubin 2.2 H (0.2-1.3) mg/dL Alkaline Phosphatase 663 H (38-126) U/L Total Creatine Kinase (55-170) U/L Albumin 2.4 L (3.5-5.0) g/dL 02/23/18 Range/Units 21:29 RBC (4.30-5.90) m/uL Hgb (13.0-17.5) gm/dL Hct (39.0-53.0) % RDW (11.5-15.5) % Plt Count (150-450) k/uL Lymphocytes # (1.0-4.8) k/uL Eosinophils # (0-0.7) k/uL INR (<1.2) D-Dimer (<0.60) mg/L FEU Sodium (137-145) mmol/L BUN (9-20) mg/dL Glucose (74-99) mg/dL Calcium (8.4-10.2) mg/dL Total Bilirubin (0.2-1.3) mg/dL Alkaline Phosphatase (38-126) U/L Total Creatine Kinase 26 L (55-170) U/L Albumin (3.5-5.0) g/dL Thrombosis Risk Factor Assmnt - Choose All That Apply Each Factor Represents 1 point: Abnormal pulmonary function (COPD), Obesity ( BMI >25), Swollen legs (current) Each Risk Factor Represents 2 Points: Malignancy Each Risk Factor Represents 3 Points: Age 75 years or older Thrombosis Risk Factor Assessment Total Risk Factor Score: 8 Thrombosis Risk Factor Assessment Level: High Risk Assessment and Plan Plan: COPD examination: Patient is on systemic steroids inhalational treatments reflux as mentioned above which will be continued. -Possible cirrhosis with ascites and volume overload secondary to that patient will be started on IV Lasix gastro-oncology will be consulted will obtain ultrasound guided paracentesis therapy because of his diagnostic. Appropriate ascetic fluid labs were ordered -Hypokalemia: Hypervolemic hypokalemia expected to improve with Lasix. Secondary to possible cirrhosis -Coagulopathy secondary to possible cirrhosis etiology is not clear as nephrology consult -Osteoblastic changes in the thoracic bones, mediastinal lymphadenopathy may need a biopsy of these lymph nodes, pulmonary was consulted regarding their opinion regarding this -Hyperlipidemia -Hyper tension -Sleep apnea morbid obesity -History of CVA. For above-mentioned chronic medical problems patient will be resumed and continued. Home medications
[2018-02-24] MEDS ORDERED: HEPARIN SODIUM,PORCINE 5,000 UNIT/ML 1 ML VIAL SQ SCH (16:00)
[2018-02-24] MEDS: FUROSEMIDE 10 MG/ML 4 ML VIAL IV SCH ×2 (16:37→20:43)
[2018-02-24 17:30] LABS: Glucose,Whole Blood 133 mg/dL (75-99)
[2018-02-24] MEDS: ALBUMIN HUMAN 25% 50 ML in EMPTY BAG 1 BAG IVPB SCH ×2 (18:12→18:41)
[2018-02-24 19:54] LABS: Appearance,BF Hazy; Nucleated Cells, Body Fluid 390 /uL; RBC, Body Fluid 55 /uL
[2018-02-24 19:58] LABS: Mononuclear WBC,Body Fluid 83 %; Polynuclear WBC,Body Fluid 16 %; Total Cells Counted,Body Fluid 100
[2018-02-24 20:28] LABS: Glucose,Whole Blood 171 mg/dL (75-99)
[2018-02-24] MEDS: HEPARIN SODIUM,PORCINE 5,000 UNIT/ML 1 ML VIAL SQ SCH (20:44)
[2018-02-24] MEDS: INSULIN ASPART 100 UNIT/ML 1 ML 10 ML VIAL SQ SCH (20:44)
[2018-02-24] MEDS: ASPIRIN 81 MG PO SCH (20:44)
[2018-02-24] MEDS: METOPROLOL TARTRATE 25 MG TAB PO SCH (20:44)
[2018-02-24] MEDS: PRAVASTATIN SODIUM 40 MG TAB PO SCH (20:45)
[2018-02-24] MEDS: FORMOTEROL FUMARATE 20 MCG/2 ML NEBU INHALATION SCH (21:01)
[2018-02-24] MEDS: BUDESONIDE 1 MG/2 ML NEBU INHALATION SCH (21:01)
[2018-02-24 21:59] LABS: Appearance,Urine Clear (Clear); Bacteria,Urine Rare /hpf; Bilirubin,Urine Negative (Negative); Blood,Urine Negative (Negative); Color,Urine Yellow; Glucose,Urine (UA) Negative (Negative); Hyaline Casts,Urine 16 /lpf (0-2); Ketones,Urine Negative (Negative); Leukocyte Esterase,Urine Moderate (Negative); Mucus,Urine Rare /hpf; Nitrite,Urine Negative (Negative); Protein,Urine Negative (Negative); RBC,Urine 2 /hpf (0-5); Specific Gravity,Urine 1.011 (1.001-1.035); Squamous Epithelial Cell,Urine 1 /hpf (0-4); Urobilinogen,Urine <2.0 mg/dL (<2.0); WBC,Urine 19 /hpf (0-5)
[2018-02-25] MEDS: methylPREDNISolone SOD SUCCI 125 MG/2 ML VIAL IV SCH ×3 (02:24→12:39)
[2018-02-25 04:23] LABS: Total Protein, Body Fluid 1685 mg/dL
[2018-02-25 07:13] LABS: Glucose,Whole Blood 226 mg/dL (75-99)
[2018-02-25] MEDS: INSULIN ASPART 100 UNIT/ML 1 ML 10 ML VIAL SQ SCH ×4 (07:41→20:54)
[2018-02-25] MEDS: IPRATROPIUM-ALBUTEROL 3 ML NEB INHALATION SCH ×4 (08:38→21:19)
[2018-02-25] MEDS: FORMOTEROL FUMARATE 20 MCG/2 ML NEBU INHALATION SCH (08:38)
[2018-02-25] MEDS: BUDESONIDE 1 MG/2 ML NEBU INHALATION SCH (08:38)
[2018-02-25] MEDS ORDERED: NON-FORMULARY DRUG (Omeprazole 20 MG) PO SCH (09:00)
[2018-02-25] MEDS: ASPIRIN 81 MG PO SCH ×2 (09:47→20:54)
[2018-02-25] MEDS: CHOLESTYRAMINE (WITH SUGAR) 4 GM PACKET PO SCH (09:48)
[2018-02-25] MEDS: FUROSEMIDE 10 MG/ML 4 ML VIAL IV SCH ×2 (09:49→20:53)
[2018-02-25] MEDS: HEPARIN SODIUM,PORCINE 5,000 UNIT/ML 1 ML VIAL SQ SCH ×2 (09:50→20:54)
[2018-02-25] MEDS: METOPROLOL TARTRATE 25 MG TAB PO SCH ×2 (09:51→20:54)
[2018-02-25] MEDS: NIACIN TR 500 MG CAPSULE.ER PO SCH (09:51)
[2018-02-25] MEDS: PANTOPRAZOLE 40 MG/10 ML VIAL IVP SCH (09:52)
[2018-02-25 11:26] LABS: Hemoglobin A1C 4.2 % (4.0-6.0)
[2018-02-25 11:32] LABS: Glucose,Whole Blood 181 mg/dL (75-99)
[2018-02-25] MEDS: LEVOFLOXACIN 750MG-D5W PMX 750 MG in DEXTROSE/WATER 1 150ML.BAG IVPB SCH (12:39)
--- NOTE | 2018-02-25 13:07 | P.PN ---
Subjective Progress Note Date: 02/25/18 Principal diagnosis: Shortness of breath, pneumonia, ascites Progress note dated 02/25/2018 This is a 77-year-old male that we saw in the observation unit yesterday for shortness of breath. Without shortness of breath was multifactorial in part related to underlying COPD exacerbation complicated by purulent tracheobronchitis or bronchopneumonia left lower lobe as well as underlying massive ascites. The patient also has a history of cirrhosis/splenomegaly, of unclear etiology, multiple osteoblastic bony lesions, skin cancer, hyperlipidemia, hypertension, recent admission for GI bleed and anemia, sleep apnea syndrome, TIA, and multiple other medical problems and comorbidities. The patient had a large-volume paracentesis abdominis yesterday. More than 7-1/ 2 L was removed. The patient's breathing has improved dramatically. He still does have a cough. Still producing some phlegm. He seems much more comfortable and his belly is much less distended. He is currently being evaluated by gastroenterology for the etiology of his liver failure splenomegaly and massive ascites. Objective - Vital Signs Vital signs: Vital Signs Temp 97.8 F 02/25/18 11:50 Pulse 80 02/25/18 12:15 Resp 18 02/25/18 11:50 BP 115/54 02/25/18 11:50 Pulse Ox 97 02/25/18 11:50 Intake & Output 02/24/18 02/25/18 02/25/18 18:59 06:59 18:59 Weight 147 kg 143 kg Other: Voiding Method Diaper Diaper Diaper # Voids 2 1 1 - Exam No acute distress, oriented 3. Nasal O2 in place HEENT examination is grossly unremarkable. Mucous membranes are moist. No oral lesions. Neck supple. Full range of motion. No adenopathy thyromegaly or neck vein distention. Cardiovascular examination reveals regular rhythm rate. S1-S2 normal. No S3 or S4. No discernible murmur noted. Heart sounds are distant. Lungs reveal coarse bilateral rhonchi and some expiratory crackles. Mild expiratory wheezes are also appreciated. Breath sounds are diminished throughout. Breath sounds equal bilaterally. Abdomen is mildly distended but much less so than yesterday. Bowel sounds are noted. No masses. Extremities are intact. No cyanosis clubbing or edema. Skin is without rash or lesion. Neurologic examination is brief but nonfocal. - Labs CBC & Chem 7: 10/16/18 21:29 02/23/18 21:29 Labs: Abnormal Lab Results - Last 24 Hours (Table) 02/24/18 02/24/18 02/24/18 Range/Units 17:28 20:27 20:55 POC Glucose (mg/dL) 133 H 171 H (75-99) mg/dL Ur Leukocyte Esterase Moderate H (Negative) Urine WBC 19 H (0-5) /hpf Urine Bacteria Rare H (None) /hpf Hyaline Casts 16 H (0-2) /lpf Urine Mucus Rare H (None) /hpf 02/25/18 02/25/18 Range/Units 07:11 11:29 POC Glucose (mg/dL) 226 H 181 H (75-99) mg/dL Ur Leukocyte Esterase (Negative) Urine WBC (0-5) /hpf Urine Bacteria (None) /hpf Hyaline Casts (0-2) /lpf Urine Mucus (None) /hpf Microbiology - Last 24 Hours (Table) 02/24/18 16:00 Gram Stain - Preliminary Ascites Fluid Body Fluid Culture - Preliminary 02/24/18 16:00 Anaerobic Culture - Preliminary Ascites Fluid Assessment and Plan Assessment: Assessment Shortness of breath, multifactorial, related to a COPD exacerbation complicated by purulent tracheobronchitis as bronchopneumonia left lower lobe, as well as ascites and possible underlying liver disease. Status post large volume paracentesis abdominis on February 24 Hypoxemic respiratory failure as above No evidence of pulmonary embolism by CT angiogram Cirrhosis/splenomegaly and massive ascites Bony thorax osteoblastic changes, rule out metastatic disease History of skin cancer History of hyperlipidemia History of hypertension Recent admission to the hospital for GI bleed and anemia, requiring blood transfusion History of sleep apnea syndrome History of TIA/CVA Multiple other medical problems and comorbidities Plan: Plan dated 02/24/2018 The patient should be admitted to the hospital. We've added updrafts and long- acting beta agonist and inhaled corticosteroids to his regimen. We've also added some antibiotic and some steroids. The patient's cirrhosis/splenomegaly and ascites will have to be evaluated by gastroenterology. His overall prognosis remains guarded. Labs x-rays a medications are reviewed. No evidence of pulmonary embolus him on CT angiogram. White count 9.4, hemoglobin 10.2, hematocrit 32.8, and platelet count 138,000. Sodium 133, with a normal potassium chloride and CO2. BUN and creatinine were 39 and 1.09 suggesting prerenal azotemia. The rest of the labs and medications are reviewed. Plan dated 02/25/2018 The patient appears to be much more comfortable today than he did yesterday. He had a large-volume paracentesis abdominis sure that's improved his breathing. Cytology is still pending on the fluid removal. No new labs to report. Medications are reviewed. X-rays are reviewed. Microbiologic studies are thus far negative. The patient had updrafts added to his regimen yesterday. We also added some antibiotics and steroids which I'm sure has helped. Additional recommendations and suggestions are forthcoming. Time with Patient: Less than 30
--- NOTE | 2018-02-25 13:13 | P.CONS ---
History of Present Illness - Reason for Consult Consult date: 02/25/18 ascites Requesting physician: Martine Castillo - Chief Complaint shortness of breath - History of Present Illness 77-year-old gentleman with a past history of reactive hepatitis C antibody but negative quantitative measurement, skin cancer, CVA TIA, AAA, clostridium difficile colitis, splenomegaly, COPD, hypertension hyperlipidemia and morbid obesity admitted with shortness of breath. Patient was hospitalized a month ago with acute GI bleed acute blood loss anemia status post EGD colonoscopy with findings of a duodenal bulb ulcer colonoscopy scattered diverticulosis. Biopsies negative for malignancy. Patient has developed increased abdominal distention fluid underwent diagnostic paracentesis 7.5 L removed. Cytology pending. Additionally patient was evaluated in November at [facility] for unintentional 30 pound weight loss diarrhea lower extremity cellulitis. Patient underwent MRI abdominal imaging that showed cholelithiasis fatty liver enlargement with heterogeneous appearance portal hepatic adenopathy portacaval lymph nodes measuring 1.7 cm enlarged retroperitoneal nodes, enlarged spleen 15.7 cm and prostate enlargement. Bone scan last month generalized increased tracer to be throughout the osseous structures shoulders and knees hematologic etiology or infiltrating neoplasm, lymphoma cannot be excluded. CA 19-9 was 7. Hepatitis A/B negative. AFP 0.9. Patient was advised after EGD colonoscopy last month to follow up for discussion of an outpatient endoscopic ultrasound secondary to EGD findings. Presently white count 9.4. Hemoglobin 10.2. Platelet 138. INR 1.2. Total bilirubin 2.2. AST 58. ALT 33. Alkaline phosphatase 663. His liver function tests last month total bilirubin 1.2. AST 19. ALT 22. AP 238. Chronic liver disease workup evaluated and unremarkable. Review of Systems Constitutional: Denies fever, chills, sweats, weight gain, reported 40 pound unintentional weight loss 2 months. HEENT: Negative for migraines, blurred vision or loss, earaches, drainage, tinnitus, oral mucosal lesions, dysphagia, or odynophagia. Cardiac: Negative for chest pain, arrhythmias, or palpitation. Respiratory: Admitted shortness of breath, denies hemoptysis, cough, or sputum production. Gastrointestinal: See HPI for pertinent findings. Genitourinary: Negative for hematuria, urgency, frequency, polyuria, dysuria, or penile discharge. Musculoskeletal: Negative for muscle aches, swelling, arthritis, and arthralgias. Neurologic: Hx CVA. Endocrine: Negative for thyroid problems. Skin: Negative for rash or itching. Psychiatric: Negative history for depression and anxiety Past Medical History Past Medical History: Cancer, COPD, CVA/TIA, Hyperlipidemia, Hypertension, Pneumonia Additional Past Medical History / Comment(s): SMALL AAA, TIA, CVA - approx 2014 and has had vertigo/difficulty ambulating, difficulty writing and decreased hearing with R ear since, CATE with Cpap use, skin cancer with removal. History of Any Multi-Drug Resistant Organisms: None Reported Past Surgical History: Appendectomy, Tonsillectomy Additional Past Surgical History / Comment(s): Skin cancer removal, colonoscopy Past Anesthesia/Blood Transfusion Reactions: No Reported Reaction Past Psychological History: No Psychological Hx Reported Additional Psychological History / Comment(s): Pt resides with his spouse of 57yrs. He uses a cane to ambulate. He does not drive, his spouse takes him to [employer]. 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 Smoking Status: Former smoker Past Alcohol Use History: None Reported Additional Past Alcohol Use History / Comment(s): Pt started smoking in 1958 and quit in 1987 Past Drug Use History: None Reported - Past Family History Father Family Medical History: No Reported History Mother Family Medical History: Osteoarthritis (OA) Medications and Allergies Home Medications Medication Instructions Recorded Confirmed Type Aspirin 81 mg PO BID 11/06/13 02/23/18 History Metoprolol Tartrate [Lopressor] 25 mg PO BID 11/06/13 02/23/18 History Multivitamin [Men's Multi-Vitamin] 1 tab PO DAILY 11/06/13 02/23/18 History Omeprazole [PriLOSEC] 20 mg PO DAILY 11/06/13 02/23/18 History Ubidecarenone [Coq-10] 100 mg PO DAILY 11/06/13 02/23/18 History Albuterol Sulfate [Proair Hfa] 2 puff INHALATION RT-QID PRN 10/13/17 02/23/18 History Niacin 500 mg PO DAILY 10/13/17 02/23/18 History Cholecalciferol (Vitamin D3) 2,000 unit PO DAILY 01/20/18 02/23/18 History [Vitamin D3] Cholestyramine (with Sugar) 4 gm PO DAILY 01/20/18 02/23/18 History [Questran Packet] Glycopyrrolate/Formoterol Fum 2 puff INHALATION RT-BID 01/20/18 02/23/18 History [Bevespi Aerosphere Inhaler] Pravastatin Sodium [Pravachol] 40 mg PO HS 01/20/18 02/23/18 History Triamterene-Hctz 37.5-25Mg 1 cap PO DAILY 01/20/18 02/23/18 History [Dyazide 37.5-25 Capsule] Loperamide [Imodium] 2 mg PO QID #120 capsule 01/27/18 02/23/18 Rx Budesonide-Formot 160-4.5 Mcg 2 puff INHALATION RT-BID #1 puff 03/01/18 Rx [Symbicort 160-4.5 Mcg Inhaler] Furosemide [Lasix] 40 mg PO BID #60 tablet 03/01/18 Rx Ipratropium-Albuterol Nebulize 3 ml INHALATION RT-QID #120 03/01/18 Rx [Duoneb 0.5 mg-3 mg/3 ml Soln] ampul.neb Levofloxacin [Levaquin] 750 mg PO DAILY #3 tab 03/01/18 Rx Spironolactone [Aldactone] 50 mg PO BID #60 tab 03/01/18 Rx predniSONE 10 mg PO DIRECTED #30 tab 03/01/18 Rx Allergies Allergy/AdvReac Type Severity Reaction Status Date / Time No Known Allergies Allergy Verified 02/23/18 21:19 Physical Exam Vitals: Vital Signs Temp Pulse Pulse Resp BP Pulse Ox 02/25/18 12:15 80 02/25/18 12:08 79 02/25/18 11:50 97.8 F 79 18 115/54 97 02/25/18 08:55 88 02/25/18 08:49 84 02/25/18 08:48 84 02/25/18 08:40 80 02/25/18 08:00 20 02/25/18 06:04 97.5 F L 82 18 105/55 96 02/25/18 05:16 90 02/25/18 05:00 90 02/24/18 22:14 97.6 F 93 20 123/61 95 02/24/18 21:26 90 16 02/24/18 21:16 89 16 02/24/18 21:06 88 16 02/24/18 16:42 84 02/24/18 16:33 88 02/24/18 16:15 92 20 151/85 93 L 02/24/18 16:00 93 20 02/24/18 15:49 93 20 154/82 93 L 02/24/18 15:39 89 20 141/75 93 L 02/24/18 15:15 93 22 143/72 92 L 02/24/18 13:06 92 02/24/18 12:58 96 Intake and Output 02/24/18 02/25/18 02/25/18 22:59 06:59 14:59 Other: Voiding Method Diaper Diaper # Voids 2 1 1 Weight 143 kg General appearance: The patient is alert, oriented, in no acute distress. HET: Head is normocephalic and atraumatic. Pupils are equal and reactive. Oropharynx is clear without lesions. Neck: Supple without lymphadenopathy. Trachea midline. Heart: S1 S2. Regular rate and rhythm. Lungs: No crackles or wheezes are heard. Abdomen: Soft, nontender, nondistended with bowel sounds. No peritoneal signs. No palpable organomegaly or masses. Extremities: +2 bilateral lower extremity edema. Neurological: No focal deficits. Strength and sensation are grossly intact. Results CBC & Chem 7: 03/01/18 07:29 03/01/18 07:29 Labs: Abnormal Lab Results - Last 24 Hours (Table) 02/24/18 02/24/18 02/24/18 Range/Units 17:28 20:27 20:55 POC Glucose (mg/dL) 133 H 171 H (75-99) mg/dL Ur Leukocyte Esterase Moderate H (Negative) Urine WBC 19 H (0-5) /hpf Urine Bacteria Rare H (None) /hpf Hyaline Casts 16 H (0-2) /lpf Urine Mucus Rare H (None) /hpf 02/25/18 02/25/18 Range/Units 07:11 11:29 POC Glucose (mg/dL) 226 H 181 H (75-99) mg/dL Ur Leukocyte Esterase (Negative) Urine WBC (0-5) /hpf Urine Bacteria (None) /hpf Hyaline Casts (0-2) /lpf Urine Mucus (None) /hpf Microbiology - Last 24 Hours (Table) 02/24/18 16:00 Gram Stain - Preliminary Ascites Fluid Body Fluid Culture - Preliminary 02/24/18 16:00 Anaerobic Culture - Preliminary Ascites Fluid Assessment and Plan (1) Ascites Narrative/Plan: 77-year-old male admitted with new onset of ascites, history of reactive hepatitis C antibody quantatative RNA negative, recent bone scan possible hematologic malignancy could not be excluded, suspected underlying nonalcoholic fatty liver disease possible cirrhosis with elevated total bilirubin alkaline phosphatase. Underlying occult malignancy cannot be excluded. Recent EGD/ colonoscopy for evaluation of GI bleed anemia findings of duodenal ulcer and colonic diverticulosis biopsies negative for malignancy. Status: Acute Code(s): R18.8 - OTHER ASCITES SNOMED Code(s): 035828389 (2) Elevated liver enzymes Status: Acute Code(s): R74.8 - ABNORMAL LEVELS OF OTHER SERUM ENZYMES SNOMED Code(s): 523040121 (3) Dyspnea Status: Acute Code(s): R06.00 - DYSPNEA, UNSPECIFIED SNOMED Code(s): 045354668 (4) Splenomegaly Status: Chronic Code(s): R16.1 - SPLENOMEGALY, NOT ELSEWHERE CLASSIFIED SNOMED Code(s): 88046375 Plan: 1. Low-salt diet. Lasix 40 mg IV every 12 hours. 2. Ascites cytology pending. Outpatient EUS discussed and still recommended secondary to recent EGD findings. Will follow closely with you. Thank you for this kind referral and the opportunity to participate in the care of your patient. This consultation was discussed with Dr. De La Cruz. The impression and plan of care have been directed as dictated.
[2018-02-25 17:09] LABS: Glucose,Whole Blood 419 mg/dL (75-99)
[2018-02-25] MEDS: methylPREDNISolone SOD SUCCI 40 MG/ML 1 ML VIAL IV SCH ×2 (17:59→23:47)
[2018-02-25 20:13] LABS: Glucose,Whole Blood 169 mg/dL (75-99)
[2018-02-25] MEDS: PRAVASTATIN SODIUM 40 MG TAB PO SCH (20:55)
[2018-02-25] MEDS: SYMBICORT 160-4.5 MCG INHALER INHALATION SCH (21:19)
[2018-02-26] MEDS: methylPREDNISolone SOD SUCCI 40 MG/ML 1 ML VIAL IV SCH ×4 (04:58→23:40)
[2018-02-26 06:59] LABS: Glucose,Whole Blood 152 mg/dL (75-99)
[2018-02-26] MEDS: SYMBICORT 160-4.5 MCG INHALER INHALATION SCH ×2 (08:20→19:36)
[2018-02-26] MEDS: IPRATROPIUM-ALBUTEROL 3 ML NEB INHALATION SCH ×4 (08:20→19:36)
[2018-02-26] MEDS: INSULIN ASPART 100 UNIT/ML 1 ML 10 ML VIAL SQ SCH ×4 (08:36→21:00)
[2018-02-26] MEDS: ASPIRIN 81 MG PO SCH ×2 (08:37→20:59)
[2018-02-26] MEDS: METOPROLOL TARTRATE 25 MG TAB PO SCH ×2 (08:38→21:00)
[2018-02-26] MEDS: HEPARIN SODIUM,PORCINE 5,000 UNIT/ML 1 ML VIAL SQ SCH ×2 (08:38→21:00)
[2018-02-26] MEDS: CHOLESTYRAMINE (WITH SUGAR) 4 GM PACKET PO SCH (08:38)
[2018-02-26] MEDS: LEVOFLOXACIN 750 MG TAB PO SCH (08:38)
[2018-02-26] MEDS: NIACIN TR 500 MG CAPSULE.ER PO SCH (08:39)
[2018-02-26] MEDS: PANTOPRAZOLE 40 MG/10 ML VIAL IVP SCH (08:39)
[2018-02-26] MEDS: FUROSEMIDE 10 MG/ML 4 ML VIAL IV SCH ×2 (08:39→21:00)
--- NOTE | 2018-02-26 09:24 | P.PN ---
Subjective Progress Note Date: 02/26/18 Principal diagnosis: shortness of breath, multifactorial related to COPD exacerbation, left lower lobe bronchopneumonia, and ascites Shortness of breath, pneumonia, ascites Progress note dated 02/25/2018 This is a 77-year-old male that we saw in the observation unit yesterday for shortness of breath. Without shortness of breath was multifactorial in part related to underlying COPD exacerbation complicated by purulent tracheobronchitis or bronchopneumonia left lower lobe as well as underlying massive ascites. The patient also has a history of cirrhosis/splenomegaly, of unclear etiology, multiple osteoblastic bony lesions, skin cancer, hyperlipidemia, hypertension, recent admission for GI bleed and anemia, sleep apnea syndrome, TIA, and multiple other medical problems and comorbidities. The patient had a large-volume paracentesis abdominis yesterday. More than 7-1/ 2 L was removed. The patient's breathing has improved dramatically. He still does have a cough. Still producing some phlegm. He seems much more comfortable and his belly is much less distended. He is currently being evaluated by gastroenterology for the etiology of his liver failure splenomegaly and massive ascites. on 02/26/2018 patient seen in follow-up on 3 surgical floor. States his breathing is easier, although he gets worse at night. patient underwent paracentesis yesterday, with removal of 7.5 L of fluid. Patient's abdomen still distended, some residual ascitic fluid. currently on 3 L per nasal cannula his pulse ox is 94%, at times she is tachycardic, with a heart rate in the low 100s to 132. Denies any chest pain. no fever or chills. He is down 3 kg since admission. ascitic fluid cultures pending.GI service is following. Lung sounds reveal some faint wheezes. patient continues on nebulized bronchodilators, empiric antibiotics and Symbicort. No chest congestion, no hemoptysis, no chest pain. Objective - Vital Signs Vital signs: Vital Signs Temp 97.0 F L 02/26/18 05:31 Pulse 130 H 02/26/18 08:40 Resp 22 02/26/18 08:40 BP 135/62 02/26/18 05:31 Pulse Ox 94 L 02/26/18 08:24 Intake & Output 02/25/18 02/26/18 02/26/18 18:59 06:59 18:59 Weight 143 kg 143 kg 142 kg Other: Voiding Method Diaper Diaper Incontinent # Voids 2 3 1 # Bowel Movements 0 - Exam No acute distress, oriented 3. Nasal O2 in place HEENT examination is grossly unremarkable. Mucous membranes are moist. No oral lesions. Neck supple. Full range of motion. No adenopathy thyromegaly or neck vein distention. Cardiovascular examination reveals regular rhythm rate. S1-S2 normal. No S3 or S4. No discernible murmur noted. Heart sounds are distant. Lungs mild expiratory wheezes are also appreciated. Breath sounds are diminished throughout. Breath sounds equal bilaterally. Abdomen is mildly distended but much less so than yesterday. Bowel sounds are noted. No masses. Extremities are intact. No cyanosis clubbing or edema. Skin is without rash or lesion. Neurologic examination is brief but nonfocal. - Labs CBC & Chem 7: 02/23/18 21:29 02/23/18 21:29 Labs: Abnormal Lab Results - Last 24 Hours (Table) 02/25/18 02/25/18 02/25/18 Range/Units 11:29 17:08 20:11 POC Glucose (mg/dL) 181 H 419 H 169 H (75-99) mg/dL 02/26/18 Range/Units 06:58 POC Glucose (mg/dL) 152 H (75-99) mg/dL Microbiology - Last 24 Hours (Table) 02/24/18 16:00 Gram Stain - Preliminary Ascites Fluid Body Fluid Culture - Preliminary Assessment and Plan Plan: Shortness of breath, multifactorial, related to a COPD exacerbation complicated by purulent tracheobronchitis as bronchopneumonia left lower lobe, as well as ascites and possible underlying liver disease. Status post large volume paracentesis abdominis on February 24 Hypoxemic respiratory failure as above No evidence of pulmonary embolism by CT angiogram Cirrhosis/splenomegaly and massive ascites Bony thorax osteoblastic changes, rule out metastatic disease History of skin cancer History of hyperlipidemia History of hypertension Recent admission to the hospital for GI bleed and anemia, requiring blood transfusion History of sleep apnea syndrome History of TIA/CVA Multiple other medical problems and comorbidities Plan: Continue current plan of treatment, continue IV steroids, antibiotics, nebulized bronchodilators and Symbicort. Continue IV diuresis. Patient probably has residual ascitic fluid within the abdomen. He may require repeat paracentesis. We believe patient's dyspnea is likely mostly related to ascites, and not so much to his COPD. continue to follow I performed a history & physical examination of the patient and discussed their management with my nurse practitioner, Jocelyn Mendez. I reviewed the nurse practitioner's note and agree with the documented findings and plan of care. Lung sounds are positive for faint wheezes. The findings and the impression was discussed with the patient. I attest to the documentation by the nurse practitioner. Time with Patient: Less than 30
--- NOTE | 2018-02-26 11:07 | US ---
EXAMINATION TYPE: US paracentesis abd w/image DATE OF EXAM: 02/24/2018 COMPARISON: NONE HISTORY: Ascites. PROCEDURE: Maximal barrier technique was utilized. The skin overlying a suitable pocket of fluid was localized with ultrasound and the overlying skin was prepped and draped. Ultrasound was utilized with sterile technique. Lidocaine was used for local anesthesia and a skin kelly made with a scalpel. Catheter was advanced under direct ultrasound guidance into a suitable pocket of fluid and approximately 5.2 liter s of serous fluid were removed. Catheter was withdrawn and hemostasis achieved. There is no immedia te complication; the patient is discharged in stable condition. IMPRESSION: STATUS POST ULTRASOUND GUIDED PARACENTESIS FOR PALLIATION OF ASCITES. THIS PROCEDURE WA S PERFORMED BY THE UNDERSIGNED. Specimen obtained for laboratory analysis.
[2018-02-26 11:17] LABS: Glucose,Whole Blood 242 mg/dL (75-99)
[2018-02-26 12:34] LABS: Anisocytosis Slight; Basophils % (A) 0 %; Eosinophils # (A) 0.1 k/uL (0-0.7); Eosinophils % (A) 1 %; HCT 32.5 % (39.0-53.0); HGB 9.8 gm/dL (13.0-17.5); Hypochromasia Marked; Lymphocytes # (A) 0.5 k/uL (1.0-4.8); Lymphocytes % (A) 6 %; MCH 27.5 pg (25.0-35.0); MCHC 30.3 g/dL (31.0-37.0); MCV 90.9 fL (80.0-100.0); Monocytes # (A) 0.8 k/uL (0-1.0); Monocytes % (A) 9 %; Neutrophils # (A) 7.6 k/uL (1.3-7.7); Neutrophils % (A) 82 %; Platelet Count 161 k/uL (150-450); RBC 3.57 m/uL (4.30-5.90); RDW 19.2 % (11.5-15.5); WBC 9.3 k/uL (3.8-10.6)
[2018-02-26 12:35] LABS: INR 1.3 (<1.2); Prothrombin Time 12.3 sec (9.0-12.0)
[2018-02-26 12:44] LABS: Albumin 2.5 g/dL (3.5-5.0); Calcium 8.5 mg/dL (8.4-10.2); Potassium 3.8 mmol/L (3.5-5.1); Total Bilirubin 0.9 mg/dL (0.2-1.3); Total Protein 6.5 g/dL (6.3-8.2)
--- NOTE | 2018-02-26 13:33 | CDI ---
Last Revision, April 2017 Documentation Clarification Form Date: 02/26/18 From: Sudha Quinonez RN, CCDS Admit Date: 02/24/2018 2:58:00 PM Patient Name: Humberto Piper Visit Number: [id number] Discharge Date: ATTENTION: The Clinical Documentation Specialists (CDI) and [facility] Coding Staff appreciate your assistance in clarifying documentation. Please respond to the clarification below the line at the bottom and electronically sign. The CDI & [facility] Coding staff will review the response and follow-up if needed. Please note: Queries are made part of the Legal Health Record. If you have any questions, please contact the author of this message via ITS. Jairo Marques , DO The patient presented with the following respiratory symptoms: Dyspnea, Orthopnea, hypoxemia, very short of breath. Documentation and location in medical record included: History/Risk Factors: COPD, Bronchopneumonia, Former smoker, Hypertension CVA, Sleep apnea. Liver Cirrhosis Clinical Indicators: Present with complaints of shortness of breath. Lung reveal bibasilar crackles. There are some expiratory wheezes and rhonchi. Breath sounds are diminished. Abdomen obese with possible ascites Extremities reveal lower extremity edema. It's pitting. Vital signs: 139/75 96 16 94 % 2/L NC 02/26/18 HR 130, RR22 Short of breath with activity, tachypnea 94 % 3/L NC Treatment: Monitor O2 Sat's Duoneb's per orders Symbicort inhaler Lasix iv Levasquin Po Solu-Medrol IV (Taper) In your professional opinion, can you please clarify if these findings further signify the Hypoxemic respiratory failure as ? Acuity: Acute Chronic Acute on Chronic Other Diagnosis, please specify Unable to determine Please continue to document in your progress notes and discharge summary in order to capture severity of illness and risk of mortality. Include clinical findings that support your diagnosis. Acute hypoxemic respiratory failure secondary to ascites, and in part to COPD exacerbation MTDD
--- NOTE | 2018-02-26 14:55 | US ---
EXAMINATION TYPE: US abdomen limited DATE OF EXAM: 02/26/2018 COMPARISON: 02/24/2018 CLINICAL HISTORY: evaluate for ascites. Distended abd, h/o paracentesis 2 days prior All four quadrants of abd was imaged. Mild amount of fluid seen within abd. IMPRESSION: Status post recent paracentesis with recurrent small volume abdominal ascites.
[2018-02-26 17:15] LABS: Glucose,Whole Blood 100 mg/dL (75-99)
--- NOTE | 2018-02-26 19:39 | P.PN ---
Subjective Progress Note Date: 02/25/18 Progress note being dictated for Dr. Betts Interval history:77-year-old gentleman was discharged about a month ago from the hospital to subacute rehabilitation came in with compensative shortness of breath is wheezing on exam patient is comparing of cough with sputum production denied any fever chills patient doesn't have any significant leukocytosis, CT angios the chest did not show any pneumonic process but appear to have severe bronchitis patient was evaluated by pulmonary and patient was started on antibiotics and inhalational treatments and systemic steroids. Patient is also found to have bilateral pleural effusions massive ascites patient's INR is elevated to 1.2 patient appears to have a mediastinal lymphadenopathy with some osteoblastic changes in the bones. As mentioned above pulmonary evaluated the patient. 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 Patient denied any fever chills Review of Systems REVIEW OF SYSTEMS: CONSTITUTIONAL: No fever, no malaise, no fatigue. HEENT: No recent visual problems or hearing problems. Denied any sore throat. CARDIOVASCULAR: No chest pain, orthopnea, PND, no palpitations, no syncope. PULMONARY: no hemoptysis. GASTROINTESTINAL: No diarrhea, no nausea, no vomiting, no abdominal pain. Normoactive bowel sounds. NEUROLOGICAL: No headaches, no weakness, no numbness. HEMATOLOGICAL: Denies any bleeding or petechiae. GENITOURINARY: Denies any burning micturition, frequency, or urgency. MUSCULOSKELETAL/RHEUMATOLOGICAL: Denies any joint pain, swelling, or any muscle pain. ENDOCRINE: Denies any polyuria or polydipsia. The rest of the 14-point review of systems is negative. 02/25/2018 maintained on nebulized bronchodilators, steroids, antibiotics. underwent paracentesis yesterday with 5.2 L of serous fluid removed, cytology pending. Continues diuresing on Lasix IV push. Significant improvement in shortness of breath and weakness. Denies chest pain, palpitations or increasing shortness of breath. Afebrile. Objective - Vital Signs Vital signs: Vital Signs Temp 96.1 F L 02/25/18 21:00 Pulse 80 02/25/18 21:30 Resp 16 02/25/18 21:00 BP 139/63 02/25/18 21:00 Pulse Ox 93 L 02/25/18 21:00 Intake & Output 1002/25/18 02/26/18 06:59 18:59 06:59 Weight 143 kg Other: Voiding Method Diaper Diaper Diaper # Voids 1 2 1 - Exam GENERAL: The patient is alert and oriented x3, not in any acute distress. HEENT: Pupils are round and equally reacting to light. EOMI. No scleral icterus. No conjunctival pallor. Normocephalic, atraumatic. CARDIOVASCULAR: S1 and S2 present. No murmurs, rubs, or gallops. PULMONARY: Bilateral bases diminished, scattered coarse rhonchi with bilateral expiratory wheezing ABDOMEN: Soft, distended, nontender, positive bowel sounds, no palpable organomegaly. EXTREMITIES: No cyanosis, clubbing, positive bilateral lower extremity edema NEUROLOGICAL: Gross neurological examination did not reveal any focal deficits. SKIN: No rashes. - Labs CBC & Chem 7: 02/26/18 12:15 02/26/18 12:15 Labs: Abnormal Lab Results - Last 24 Hours (Table) 02/25/18 02/25/18 02/25/18 Range/Units 07:11 11:29 17:08 POC Glucose (mg/dL) 226 H 181 H 419 H (75-99) mg/dL 02/25/18 Range/Units 20:11 POC Glucose (mg/dL) 169 H (75-99) mg/dL Microbiology - Last 24 Hours (Table) 02/24/18 16:00 Gram Stain - Preliminary Ascites Fluid Body Fluid Culture - Preliminary 02/24/18 16:00 Anaerobic Culture - Preliminary Ascites Fluid Assessment and Plan Assessment: Acute COPD exacerbation -Possible cirrhosis with ascites and volume overload, status post paracentesis -Elevated LFTs -Hypokalemia -Coagulopathy secondary to possible cirrhosis etiology unclear -Osteoblastic changes in the thoracic bones, mediastinal lymphadenopathy may need a biopsy of these lymph nodes, pulmonary following. -Hyperlipidemia -Hypertension -Sleep apnea ,morbid obesity, BMI 43.7 -History of CVA. Plan: Continue on current medication regime ,monitoring and symptomatic treatment. Ascitic fluid Cytology pending. Maintain nebulized bronchodilators , systemic steroids. Continue diuresing on Lasix IV push. Continue on low-salt diet. PT/OT to evaluate for potential subacute rehab. Close monitoring of electrolytes, renal function, with a.m. labs ordered. Daily PT INR. Follow closely with pulmonary. Further recommendations to follow. The impression and plan of care has been dictated as directed. : I performed a history and examination of this patient, discussed the same with the dictator. I agree with the dictator's note ,documented as a scribe. Any additional findings or plans will be noted.
[2018-02-26 19:52] LABS: Glucose,Whole Blood 132 mg/dL (75-99)
--- NOTE | 2018-02-26 19:54 | P.PN ---
Subjective Progress Note Date: 02/26/18 Progress note being dictated for Dr. Betts Interval history:77-year-old gentleman was discharged about a month ago from the hospital to subacute rehabilitation came in with compensative shortness of breath is wheezing on exam patient is comparing of cough with sputum production denied any fever chills patient doesn't have any significant leukocytosis, CT angios the chest did not show any pneumonic process but appear to have severe bronchitis patient was evaluated by pulmonary and patient was started on antibiotics and inhalational treatments and systemic steroids. Patient is also found to have bilateral pleural effusions massive ascites patient's INR is elevated to 1.2 patient appears to have a mediastinal lymphadenopathy with some osteoblastic changes in the bones. As mentioned above pulmonary evaluated the patient. 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 Patient denied any fever chills Review of Systems REVIEW OF SYSTEMS: CONSTITUTIONAL: No fever, no malaise, no fatigue. HEENT: No recent visual problems or hearing problems. Denied any sore throat. CARDIOVASCULAR: No chest pain, orthopnea, PND, no palpitations, no syncope. PULMONARY: no hemoptysis. GASTROINTESTINAL: No diarrhea, no nausea, no vomiting, no abdominal pain. Normoactive bowel sounds. NEUROLOGICAL: No headaches, no weakness, no numbness. HEMATOLOGICAL: Denies any bleeding or petechiae. GENITOURINARY: Denies any burning micturition, frequency, or urgency. MUSCULOSKELETAL/RHEUMATOLOGICAL: Denies any joint pain, swelling, or any muscle pain. ENDOCRINE: Denies any polyuria or polydipsia. The rest of the 14-point review of systems is negative. 02/25/2018 maintained on nebulized bronchodilators, steroids, antibiotics. underwent paracentesis yesterday with 5.2 L of serous fluid removed, cytology pending. Continues diuresing on Lasix IV push. Significant improvement in shortness of breath and weakness. Denies chest pain, palpitations or increasing shortness of breath. Afebrile. 02/26/2018 abdomen distended ,continues to present with some residual ascites, repeat ultrasound performed reporting recurrent small-volume abdominal ascites. Breathing improving. Earlier tachycardic with heart rates up to 130s, currently 80. Maintaining O2 sats of mid 90s on 3 L nasal cannula. Diuresing well on Lasix IV push with 24-hour I&O reflecting a weight loss of 4 kg. sodium is normalized, creatinine 1.1. Ascites fluid cultures pending, cytology pending. INR 1.3. Objective - Vital Signs Vital signs: Vital Signs Temp 98.0 F 02/26/18 12:07 Pulse 99 02/26/18 16:14 Resp 18 02/26/18 15:48 BP 128/60 02/26/18 12:07 Pulse Ox 96 02/26/18 12:07 Intake & Output 02/25/18 02/26/18 02/26/18 18:59 06:59 18:59 Intake Total 160 Balance 160 Weight 143 kg 143 kg 142 kg Intake: IV 160 0.9 160 Other: Voiding Method Diaper Diaper Incontinent # Voids 2 3 4 # Bowel Movements 0 - Exam GENERAL: The patient is alert and oriented x3, not in any acute distress. HEENT: Pupils are round and equally reacting to light. EOMI. No scleral icterus. No conjunctival pallor. Normocephalic, atraumatic. CARDIOVASCULAR: S1 and S2 present. No murmurs, rubs, or gallops. PULMONARY: Bilateral bases diminished, occasional scattered rhonchi ABDOMEN: Soft, less distended, nontender, positive bowel sounds, no palpable organomegaly. EXTREMITIES: No cyanosis, clubbing, positive bilateral lower extremity edema NEUROLOGICAL: Gross neurological examination did not reveal any focal deficits. SKIN: No rashes. - Labs CBC & Chem 7: 02/26/18 12:15 02/26/18 12:15 Labs: Abnormal Lab Results - Last 24 Hours (Table) 02/25/18 02/25/18 02/26/18 Range/Units 17:08 20:11 06:58 RBC (4.30-5.90) m/uL Hgb (13.0-17.5) gm/dL Hct (39.0-53.0) % MCHC (31.0-37.0) g/dL RDW (11.5-15.5) % Lymphocytes # (1.0-4.8) k/uL PT (9.0-12.0) sec INR (<1.2) BUN (9-20) mg/dL Glucose (74-99) mg/dL POC Glucose (mg/dL) 419 H 169 H 152 H (75-99) mg/dL Alkaline Phosphatase (38-126) U/L Albumin (3.5-5.0) g/dL 02/26/18 02/26/18 02/26/18 Range/Units 11:14 12:15 12:15 RBC 3.57 L (4.30-5.90) m/uL Hgb 9.8 L (13.0-17.5) gm/dL Hct 32.5 L (39.0-53.0) % MCHC 30.3 L (31.0-37.0) g/dL RDW 19.2 H (11.5-15.5) % Lymphocytes # 0.5 L (1.0-4.8) k/uL PT 12.3 H (9.0-12.0) sec INR 1.3 H (<1.2) BUN (9-20) mg/dL Glucose (74-99) mg/dL POC Glucose (mg/dL) 242 H (75-99) mg/dL Alkaline Phosphatase (38-126) U/L Albumin (3.5-5.0) g/dL 02/26/18 Range/Units 12:15 RBC (4.30-5.90) m/uL Hgb (13.0-17.5) gm/dL Hct (39.0-53.0) % MCHC (31.0-37.0) g/dL RDW (11.5-15.5) % Lymphocytes # (1.0-4.8) k/uL PT (9.0-12.0) sec INR (<1.2) BUN 42 H (9-20) mg/dL Glucose 186 H (74-99) mg/dL POC Glucose (mg/dL) (75-99) mg/dL Alkaline Phosphatase 394 H (38-126) U/L Albumin 2.5 L (3.5-5.0) g/dL Microbiology - Last 24 Hours (Table) 02/24/18 16:00 Gram Stain - Preliminary Ascites Fluid Body Fluid Culture - Preliminary Assessment and Plan Assessment: Acute COPD exacerbation with purulent tracheobronchitis, possible left lower lobe pneumonia -Possible cirrhosis with ascites and volume overload, status post paracentesis -Elevated LFTs -Hypokalemia -Coagulopathy secondary to possible cirrhosis etiology unclear. -Splenomegaly. -Osteoblastic changes in the thoracic bones, mediastinal lymphadenopathy may need a biopsy of these lymph nodes, pulmonary following. -Hyperlipidemia -Hypertension -Sleep apnea ,morbid obesity, BMI 43.7 -History of CVA. Plan: Continue on current medication regime ,monitoring and symptomatic treatment. Maintain nebulized bronchodilators, systemic steroids, diuretics. Ascitic fluid cultures/Cytology pending. Maintain low-salt diet. Evaluated by PT/OT, subacute rehab recommended at discharge. Follow closely with both pulmonary and GI. Further recommendations to follow. The impression and plan of care has been dictated as directed. : I performed a history and examination of this patient, discussed the same with the dictator. I agree with the dictator's note ,documented as a scribe. Any additional findings or plans will be noted.
[2018-02-26] MEDS: PRAVASTATIN SODIUM 40 MG TAB PO SCH (21:00)
--- NOTE | 2018-02-27 00:38 | P.PN ---
Subjective Progress Note Date: 02/26/18 Principal diagnosis: Shortness of breath, ascites Patient lying in bed reporting feeling somewhat better after paracentesis with some improvement in his shortness of breath. However he does feel that he is not completely symptomatically improved with some residual shortness of breath and a sensation that there is been some reaccumulation of the abdominal fluid. No abdominal pain at this time. Objective - Vital Signs Vital signs: Vital Signs Temp 97.8 F 02/26/18 21:00 Pulse 98 02/26/18 21:00 Resp 16 02/26/18 21:00 BP 135/65 02/26/18 21:00 Pulse Ox 93 L 02/26/18 21:00 Intake & Output 02/26/18 02/26/18 02/27/18 06:59 18:59 06:59 Intake Total 160 Balance 160 Weight 143 kg 142 kg Intake: IV 160 0.9 160 Other: Voiding Method Diaper Incontinent Urinal # Voids 3 4 2 # Bowel Movements 0 - Exam On physical examination, patient appears comfortable in no apparent distress. HEAD: Normocephalic, atraumatic. EYES: No scleral icterus. No conjunctival injection. MOUTH: No lesions, tongue midline. NECK: Trachea midline, no gross abnormalities. CHEST: Decreased air entry in all lung hines with no wheezing appreciated. ABDOMEN: Soft, obese with moderate distention and positive fluid wave. Bowel sounds are positive. No organomegaly. No guarding or rigidity. EXTREMITIES: Bilateral pedal edema. SKIN: No rashes, no jaundice. NEUROLOGIC: Alert and oriented x3. - Labs CBC & Chem 7: 02/26/18 12:15 02/26/18 12:15 Labs: Abnormal Lab Results - Last 24 Hours (Table) 02/26/18 02/26/18 02/26/18 Range/Units 06:58 11:14 12:15 RBC (4.30-5.90) m/uL Hgb (13.0-17.5) gm/dL Hct (39.0-53.0) % MCHC (31.0-37.0) g/dL RDW (11.5-15.5) % Lymphocytes # (1.0-4.8) k/uL PT 12.3 H (9.0-12.0) sec INR 1.3 H (<1.2) BUN (9-20) mg/dL Glucose (74-99) mg/dL POC Glucose (mg/dL) 152 H 242 H (75-99) mg/dL Alkaline Phosphatase (38-126) U/L Albumin (3.5-5.0) g/dL 02/26/18 02/26/18 02/26/18 Range/Units 12:15 12:15 17:14 RBC 3.57 L (4.30-5.90) m/uL Hgb 9.8 L (13.0-17.5) gm/dL Hct 32.5 L (39.0-53.0) % MCHC 30.3 L (31.0-37.0) g/dL RDW 19.2 H (11.5-15.5) % Lymphocytes # 0.5 L (1.0-4.8) k/uL PT (9.0-12.0) sec INR (<1.2) BUN 42 H (9-20) mg/dL Glucose 186 H (74-99) mg/dL POC Glucose (mg/dL) 100 H (75-99) mg/dL Alkaline Phosphatase 394 H (38-126) U/L Albumin 2.5 L (3.5-5.0) g/dL 02/26/18 Range/Units 19:50 RBC (4.30-5.90) m/uL Hgb (13.0-17.5) gm/dL Hct (39.0-53.0) % MCHC (31.0-37.0) g/dL RDW (11.5-15.5) % Lymphocytes # (1.0-4.8) k/uL PT (9.0-12.0) sec INR (<1.2) BUN (9-20) mg/dL Glucose (74-99) mg/dL POC Glucose (mg/dL) 132 H (75-99) mg/dL Alkaline Phosphatase (38-126) U/L Albumin (3.5-5.0) g/dL Microbiology - Last 24 Hours (Table) 02/24/18 16:00 Gram Stain - Preliminary Ascites Fluid Body Fluid Culture - Preliminary Assessment and Plan (1) Ascites Narrative/Plan: New-onset ascites of unclear etiology. The ascitic albumin and has not come back at a difficult to fully characterize the ascites, however elevation in protein is more suggestive of a non-liver source of the ascites. The patient has previously had imaging suggestive of fatty liver disease and has a cholestatic elevation of liver enzymes with total bilirubin 2.2 and alkaline phosphatase 663. Current Visit: Yes Status: Acute Code(s): R18.8 - OTHER ASCITES SNOMED Code(s): 814922382 (2) Dyspnea Narrative/Plan: Secondary to above. Current Visit: Yes Status: Acute Code(s): R06.00 - DYSPNEA, UNSPECIFIED SNOMED Code(s): 967467743 (3) Elevated liver enzymes Narrative/Plan: Predominantly cholestatic pattern with total bilirubin 2.2 and alkaline phosphatase 663 with AST 58 and ALT 33. As mentioned above the patient has had imaging suggestive of fatty liver with possible cirrhotic changes, only mild thrombocytopenia to suggest portal hypertension. Unclear what the etiology of this elevation is may be due to intrinsic liver disease or known liver pathology such as cardiac decompensation, although findings on echocardiogram in January only suggestive of mild pulmonary hypertension with preserved ejection fraction. Current Visit: Yes Status: Acute Code(s): R74.8 - ABNORMAL LEVELS OF OTHER SERUM ENZYMES SNOMED Code(s): 347804955 (4) Anemia Narrative/Plan: Underwent EGD and colonoscopy last month with duodenal ulcer noted and scattered diverticulosis. No signs or symptoms of GI bleeding on this admission. Current Visit: No Status: Acute Priority: High Code(s): D64.9 - ANEMIA, UNSPECIFIED SNOMED Code(s): 034616624 Plan: Supportive care Okay for diet A require repeat paracentesis, if this occurs would suggest albumin infusion if greater than 5 L of ascitic fluid is removed Await studies from diagnostic paracentesis on admission with albumin pending Given nonspecific adenopathy seen on prior exam and duodenal ulcer was suggest the patient have endoscopic ultrasound in the outpatient setting Patient may also benefit from liver biopsy for further characterization of underlying liver disease if he continues to decompensate, otherwise outpatient elastography can be performed for evaluation of possible cirrhosis At this time continue diuresis with Lasix, can consider addition of spironolactone if diuresis is inadequate Continue to restrict sodium intake Thank you for allowing us to participate in the care of this patient we will continue to follow
[2018-02-27] MEDS: methylPREDNISolone SOD SUCCI 40 MG/ML 1 ML VIAL IV SCH ×4 (06:04→23:55)
[2018-02-27 06:56] LABS: Glucose,Whole Blood 132 mg/dL (75-99)
[2018-02-27 07:29] LABS: Anisocytosis Slight; Basophils % (A) 0 %; Eosinophils # (A) 0.1 k/uL (0-0.7); Eosinophils % (A) 1 %; HCT 33.4 % (39.0-53.0); Hypochromasia Marked; Lymphocytes # (A) 0.5 k/uL (1.0-4.8); Lymphocytes % (A) 6 %; MCH 26.9 pg (25.0-35.0); MCHC 29.8 g/dL (31.0-37.0); MCV 90.2 fL (80.0-100.0); Mean Platelet Volume 8.4; Monocytes # (A) 0.5 k/uL (0-1.0); Monocytes % (A) 7 %; Neutrophils # (A) 6.6 k/uL (1.3-7.7); Neutrophils % (A) 84 %; Platelet Count 171 k/uL (150-450); RDW 19.2 % (11.5-15.5); WBC 7.9 k/uL (3.8-10.6)
[2018-02-27 07:49] LABS: Albumin 2.5 g/dL (3.5-5.0); Calcium 8.6 mg/dL (8.4-10.2); Potassium 4.2 mmol/L (3.5-5.1); Total Bilirubin 0.8 mg/dL (0.2-1.3); Total Protein 6.5 g/dL (6.3-8.2)
[2018-02-27] MEDS: INSULIN ASPART 100 UNIT/ML 1 ML 10 ML VIAL SQ SCH ×4 (07:55→20:24)
[2018-02-27 07:57] LABS: INR 1.3 (<1.2); Prothrombin Time 12.3 sec (9.0-12.0)
[2018-02-27] MEDS: PANTOPRAZOLE 40 MG TABLET PO SCH (08:38)
[2018-02-27] MEDS: HEPARIN SODIUM,PORCINE 5,000 UNIT/ML 1 ML VIAL SQ SCH ×2 (08:38→20:19)
[2018-02-27] MEDS: NIACIN TR 500 MG CAPSULE.ER PO SCH (08:38)
[2018-02-27] MEDS: ASPIRIN 81 MG PO SCH ×2 (08:38→20:18)
[2018-02-27] MEDS: METOPROLOL TARTRATE 25 MG TAB PO SCH ×2 (08:38→20:18)
[2018-02-27] MEDS: LEVOFLOXACIN 750 MG TAB PO SCH (08:38)
[2018-02-27] MEDS: CHOLESTYRAMINE (WITH SUGAR) 4 GM PACKET PO SCH (08:38)
[2018-02-27] MEDS: FUROSEMIDE 10 MG/ML 4 ML VIAL IV SCH ×2 (08:41→20:19)
[2018-02-27] MEDS: SYMBICORT 160-4.5 MCG INHALER INHALATION SCH ×2 (09:03→20:24)
[2018-02-27] MEDS: IPRATROPIUM-ALBUTEROL 3 ML NEB INHALATION SCH ×4 (09:03→20:24)
[2018-02-27 11:13] LABS: Glucose,Whole Blood 171 mg/dL (75-99)
[2018-02-27] MEDS: SPIRONOLACTONE 25 MG TAB PO SCH ×2 (13:00→20:18)
--- NOTE | 2018-02-27 13:48 | P.PN ---
Subjective Progress Note Date: 02/27/18 Principal diagnosis: Dyspnea secondary to exacerbation of chronic obstructive pulmonary disease, significant abdominal ascites. The patient is seen again today 02/27/2018 in follow-up on the third surgical floor. He is currently resting quite comfortably in bed. He is awake and alert in no acute distress. He states he is breathing easier today as compared to yesterday. He has been less short of breath since the paracentesis which removed 7.5 L of fluid. Cultures are pending. Follow-up ultrasound revealed recurrent small-volume abdominal ascites. The patient is currently maintaining good O2 saturations in the 90s on 2 L/m per nasal cannula. He's been afebrile. Hemodynamically stable. White count 7.9. Hemoglobin 10.0. INR 1.3. Creatinine 1.05. He is maintained on Symbicort, DuoNeb inhalations, IV Solu- Medrol and antibiotics in the form of Levaquin. He continues to be diurese with Lasix 40 mg IV every 12 hours and Aldactone. Objective - Vital Signs Vital signs: Vital Signs Temp 97.6 F 02/27/18 12:30 Pulse 75 02/27/18 12:30 Resp 16 02/27/18 12:30 BP 111/53 02/27/18 12:30 Pulse Ox 94 L 02/27/18 12:30 Intake & Output 02/26/18 02/27/18 02/27/18 18:59 06:59 18:59 Intake Total 160 590 160 Balance 160 590 160 Weight 142 kg Intake: IV 160 0.9 160 Oral 590 160 Other: Voiding Method Incontinent Urinal Urinal # Voids 4 2 3 # Bowel Movements 0 - Exam No acute distress, oriented 3. Nasal O2 in place HEENT examination is grossly unremarkable. Mucous membranes are moist. No oral lesions. Neck supple. Full range of motion. No adenopathy thyromegaly or neck vein distention. Cardiovascular examination reveals regular rhythm rate. S1-S2 normal. No S3 or S4. No discernible murmur noted. Heart sounds are distant. Lungs mild expiratory wheezes are also appreciated. Breath sounds are diminished throughout. Breath sounds equal bilaterally. Abdomen is mildly distended but much less so than yesterday. Bowel sounds are noted. No masses. Extremities are intact. No cyanosis clubbing or edema. Skin is without rash or lesion. Neurologic examination is brief but nonfocal. - Labs CBC & Chem 7: 02/27/18 07:09 02/27/18 07:09 Labs: Abnormal Lab Results - Last 24 Hours (Table) 02/26/18 02/26/18 02/27/18 Range/Units 17:14 19:50 06:53 RBC (4.30-5.90) m/uL Hgb (13.0-17.5) gm/dL Hct (39.0-53.0) % MCHC (31.0-37.0) g/dL RDW (11.5-15.5) % Lymphocytes # (1.0-4.8) k/uL PT (9.0-12.0) sec INR (<1.2) BUN (9-20) mg/dL Glucose (74-99) mg/dL POC Glucose (mg/dL) 100 H 132 H 132 H (75-99) mg/dL Alkaline Phosphatase (38-126) U/L Albumin (3.5-5.0) g/dL 02/27/18 02/27/18 02/27/18 Range/Units 07:09 07:09 07:09 RBC 3.70 L (4.30-5.90) m/uL Hgb 10.0 L (13.0-17.5) gm/dL Hct 33.4 L (39.0-53.0) % MCHC 29.8 L (31.0-37.0) g/dL RDW 19.2 H (11.5-15.5) % Lymphocytes # 0.5 L (1.0-4.8) k/uL PT 12.3 H (9.0-12.0) sec INR 1.3 H (<1.2) BUN 45 H (9-20) mg/dL Glucose 130 H (74-99) mg/dL POC Glucose (mg/dL) (75-99) mg/dL Alkaline Phosphatase 376 H (38-126) U/L Albumin 2.5 L (3.5-5.0) g/dL 02/27/18 Range/Units 11:10 RBC (4.30-5.90) m/uL Hgb (13.0-17.5) gm/dL Hct (39.0-53.0) % MCHC (31.0-37.0) g/dL RDW (11.5-15.5) % Lymphocytes # (1.0-4.8) k/uL PT (9.0-12.0) sec INR (<1.2) BUN (9-20) mg/dL Glucose (74-99) mg/dL POC Glucose (mg/dL) 171 H (75-99) mg/dL Alkaline Phosphatase (38-126) U/L Albumin (3.5-5.0) g/dL Microbiology - Last 24 Hours (Table) 02/24/18 16:00 Anaerobic Culture - Preliminary Ascites Fluid 02/24/18 16:00 Gram Stain - Preliminary Ascites Fluid Body Fluid Culture - Preliminary Assessment and Plan Assessment: Impression: Acute hypoxic respiratory failure secondary to ascites and in part to an acute exacerbation of chronic obstructive pulmonary disease. Status post large volume paracentesis abdominis on February 24 2018 with 7.5 L removed. Cultures pending. Hypoxemic respiratory failure as above No evidence of pulmonary embolism by CT angiogram Cirrhosis/splenomegaly and massive ascites Bony thorax osteoblastic changes, rule out metastatic disease History of skin cancer History of hyperlipidemia History of hypertension Recent admission to the hospital for GI bleed and anemia, requiring blood transfusion History of sleep apnea syndrome History of TIA/CVA Multiple other medical problems and comorbidities Plan: The patient was seen and evaluated by Dr. Rosenthal. He is currently stable from the pulmonary standpoint. We'll continue to wean down the FiO2. Continue diuretics. Continue COPD treatment. Increase his activity as tolerated. We' ll continue to follow. I, the cosigning physician, performed a history & physical examination of the patient. Lungs sounds crackles in the posterior bases, end expiratory wheeze. Maintaining good O2 saturations in the 90s on 2 L/m per nasal cannula. I discussed the assessment and plan of care with my nurse practitioner, Harriet Starkey. I attest to the above note as dictated by her.
[2018-02-27 17:09] LABS: Glucose,Whole Blood 134 mg/dL (75-99)
[2018-02-27 20:22] LABS: Glucose,Whole Blood 245 mg/dL (75-99)
[2018-02-27] MEDS: PRAVASTATIN SODIUM 40 MG TAB PO SCH (20:40)
--- NOTE | 2018-02-27 22:14 | PN ---
PROGRESS NOTE DATE OF SERVICE: 02/27/2018 This 77-year-old gentleman who was admitted with COPD acute exacerbation also had possible cirrhosis of the liver. The patient also had ascites. The patient is closely monitored. Gastroenterology is following the patient closely. No chest pain. No palpitations. No fever. Repeat ultrasound did not show any fluid to be aspirated. EXAM: Alert and oriented x3. Pulse is 75, blood pressure 111/53, respirations 16, temperature 97.2, pulse ox 94% on 2 L. HEENT: Conjunctivae normal. CARDIOVASCULAR: S1, S2. RESPIRATORY: Breath sounds diminished in the bases. Bilateral scattered rhonchi and crackles. ABDOMEN: Soft, obese. Ascites present. LEGS: No edema. NERVOUS SYSTEM: No focal deficits. LABS: Hemoglobin 10, glucose 171, albumin is 2.4. ASSESSMENT: 1. Chronic obstructive pulmonary disease acute exacerbation with acute purulent tracheobronchitis with possible left lower lobe pneumonia possibly gram-negative. 2. Possible cirrhosis of liver with ascites with fluid overload, status post paracentesis. 3. Elevated LFTs. 4. Hypokalemia. 5. Coagulopathy secondary to possible cirrhosis of the liver. 6. Splenomegaly. 7. Osteomyelitis changes in the thoracic border, mediastinal lymphadenopathy. May need biopsy of lymph nodes. Pulmonary following. 8. Hypertension. 9. History of sleep apnea. 10.History of cerebrovascular accident. RECOMMENDATIONS AND DISCUSSION: I recommend to continue current management, continue monitoring and symptomatic treatment. I will add Aldactone to the current regimen. Continue with Lasix. Fluid restriction. Prognosis guarded. PT, OT evaluation. Further recommendations to follow. MMODL / IJN: [id number] /
[2018-02-28] MEDS: methylPREDNISolone SOD SUCCI 40 MG/ML 1 ML VIAL IV SCH ×3 (05:33→17:50)
[2018-02-28 06:39] LABS: Glucose,Whole Blood 130 mg/dL (75-99)
[2018-02-28] MEDS: INSULIN ASPART 100 UNIT/ML 1 ML 10 ML VIAL SQ SCH ×4 (08:40→20:33)
[2018-02-28] MEDS: SPIRONOLACTONE 25 MG TAB PO SCH ×2 (09:01→20:32)
[2018-02-28] MEDS: LEVOFLOXACIN 750 MG TAB PO SCH (09:01)
[2018-02-28] MEDS: ASPIRIN 81 MG PO SCH ×2 (09:01→20:33)
[2018-02-28] MEDS: NIACIN TR 500 MG CAPSULE.ER PO SCH (09:01)
[2018-02-28] MEDS: PANTOPRAZOLE 40 MG TABLET PO SCH (09:01)
[2018-02-28] MEDS: CHOLESTYRAMINE (WITH SUGAR) 4 GM PACKET PO SCH (09:02)
[2018-02-28] MEDS: METOPROLOL TARTRATE 25 MG TAB PO SCH ×2 (09:02→20:32)
[2018-02-28] MEDS: FUROSEMIDE 10 MG/ML 4 ML VIAL IV SCH ×2 (09:02→20:32)
[2018-02-28] MEDS: HEPARIN SODIUM,PORCINE 5,000 UNIT/ML 1 ML VIAL SQ SCH ×2 (09:03→20:33)
[2018-02-28] MEDS: IPRATROPIUM-ALBUTEROL 3 ML NEB INHALATION SCH ×4 (09:23→20:24)
[2018-02-28] MEDS: SYMBICORT 160-4.5 MCG INHALER INHALATION SCH ×2 (09:24→20:24)
[2018-02-28 09:52] LABS: Anisocytosis Slight; Basophils % (A) 0 %; Eosinophils # (A) 0.2 k/uL (0-0.7); Eosinophils % (A) 2 %; HCT 36.7 % (39.0-53.0); HGB 10.9 gm/dL (13.0-17.5); Hypochromasia Marked; Lymphocytes # (A) 0.7 k/uL (1.0-4.8); Lymphocytes % (A) 10 %; MCH 27.8 pg (25.0-35.0); MCHC 29.8 g/dL (31.0-37.0); MCV 93.2 fL (80.0-100.0); Macrocytosis Slight; Mean Platelet Volume 7.8; Monocytes # (A) 0.5 k/uL (0-1.0); Monocytes % (A) 6 %; Neutrophils # (A) 5.9 k/uL (1.3-7.7); Neutrophils % (A) 79 %; Platelet Count 206 k/uL (150-450); RBC 3.94 m/uL (4.30-5.90); RDW 19.3 % (11.5-15.5); WBC 7.5 k/uL (3.8-10.6)
--- NOTE | 2018-02-28 09:57 | P.PN ---
Subjective Progress Note Date: 02/28/18 Principal diagnosis: shortness of breath, multifactorial related to COPD exacerbation, left lower lobe bronchopneumonia, and ascites Shortness of breath, pneumonia, ascites Progress note dated 02/25/2018 This is a 77-year-old male that we saw in the observation unit yesterday for shortness of breath. Without shortness of breath was multifactorial in part related to underlying COPD exacerbation complicated by purulent tracheobronchitis or bronchopneumonia left lower lobe as well as underlying massive ascites. The patient also has a history of cirrhosis/splenomegaly, of unclear etiology, multiple osteoblastic bony lesions, skin cancer, hyperlipidemia, hypertension, recent admission for GI bleed and anemia, sleep apnea syndrome, TIA, and multiple other medical problems and comorbidities. The patient had a large-volume paracentesis abdominis yesterday. More than 7-1/ 2 L was removed. The patient's breathing has improved dramatically. He still does have a cough. Still producing some phlegm. He seems much more comfortable and his belly is much less distended. He is currently being evaluated by gastroenterology for the etiology of his liver failure splenomegaly and massive ascites. on 02/26/2018 patient seen in follow-up on 3 surgical floor. States his breathing is easier, although he gets worse at night. patient underwent paracentesis yesterday, with removal of 7.5 L of fluid. Patient's abdomen still distended, some residual ascitic fluid. currently on 3 L per nasal cannula his pulse ox is 94%, at times she is tachycardic, with a heart rate in the low 100s to 132. Denies any chest pain. no fever or chills. He is down 3 kg since admission. ascitic fluid cultures pending.GI service is following. Lung sounds reveal some faint wheezes. patient continues on nebulized bronchodilators, empiric antibiotics and Symbicort. No chest congestion, no hemoptysis, no chest pain. On 02/28/2018 patient seen in follow-up in 3 surgical floor. Patient states his breathing is improving. Ascites fluid cultures remain negative. Patient is afebrile, denies any worsening shortness of breath or chest pain. Repeat abdominal ultrasound on 02/26/2018 showed small volume abdominal ascites. Not enough to drain. Lung sounds are coarse, with no significant wheezing. Occasional cough, with clear phlegm production. Objective - Vital Signs Vital signs: Vital Signs Temp 97.5 F L 02/28/18 05:00 Pulse 92 02/28/18 09:36 Resp 16 02/28/18 05:00 BP 153/63 02/28/18 05:00 Pulse Ox 92 L 02/28/18 05:00 Intake & Output 02/27/18 02/28/18 02/28/18 18:59 06:59 18:59 Intake Total 160 1200 Balance 160 1200 Intake: Oral 160 1200 Other: Voiding Method Urinal Urinal # Voids 1 1 - Exam No acute distress, oriented 3. Nasal O2 in place HEENT examination is grossly unremarkable. Mucous membranes are moist. No oral lesions. Neck supple. Full range of motion. No adenopathy thyromegaly or neck vein distention. Cardiovascular examination reveals regular rhythm rate. S1-S2 normal. No S3 or S4. No discernible murmur noted. Heart sounds are distant. Lungs sounds are coarse no significant wheezing noted.. Breath sounds are diminished throughout. Breath sounds equal bilaterally. Abdomen is mildly distended but much less so than yesterday. Bowel sounds are noted. No masses. Extremities are intact. No cyanosis clubbing or edema. Skin is without rash or lesion. Neurologic examination is brief but nonfocal. - Labs CBC & Chem 7: 02/27/18 07:09 02/27/18 07:09 Labs: Abnormal Lab Results - Last 24 Hours (Table) 02/27/18 02/27/18 02/27/18 Range/Units 11:10 17:07 20:21 POC Glucose (mg/dL) 171 H 134 H 245 H (75-99) mg/dL 02/28/18 Range/Units 06:36 POC Glucose (mg/dL) 130 H (75-99) mg/dL Microbiology - Last 24 Hours (Table) 02/24/18 16:00 Gram Stain - Preliminary Ascites Fluid Body Fluid Culture - Preliminary Assessment and Plan Plan: Shortness of breath, multifactorial, related to a COPD exacerbation complicated by purulent tracheobronchitis as bronchopneumonia left lower lobe, as well as ascites and possible underlying liver disease. Status post large volume paracentesis abdominis on February 24 Hypoxemic respiratory failure as above No evidence of pulmonary embolism by CT angiogram Cirrhosis/splenomegaly and massive ascites Bony thorax osteoblastic changes, rule out metastatic disease History of skin cancer History of hyperlipidemia History of hypertension Recent admission to the hospital for GI bleed and anemia, requiring blood transfusion History of sleep apnea syndrome History of TIA/CVA Multiple other medical problems and comorbidities Plan: Continue current plan of treatment, continue with IV diuretics, nebulized bronchodilators, empiric antibiotics, IV steroids. We'll repeat chest x-ray in the morning. will continue to follow. I performed a history & physical examination of the patient and discussed their management with my nurse practitioner, Jocelyn Mendez. I reviewed the nurse practitioner's note and agree with the documented findings and plan of care. Lung sounds are positive for faint wheezes. The findings and the impression was discussed with the patient. I attest to the documentation by the nurse practitioner. Time with Patient: Less than 30
[2018-02-28 10:00] LABS: INR 1.3 (<1.2)
[2018-02-28 10:02] LABS: Albumin 2.5 g/dL (3.5-5.0); Calcium 8.8 mg/dL (8.4-10.2); Potassium 4.4 mmol/L (3.5-5.1); Total Bilirubin 0.9 mg/dL (0.2-1.3); Total Protein 6.4 g/dL (6.3-8.2)
[2018-02-28 11:05] LABS: Glucose,Whole Blood 117 mg/dL (75-99)
[2018-02-28 17:10] LABS: Glucose,Whole Blood 105 mg/dL (75-99)
[2018-02-28 20:07] LABS: Glucose,Whole Blood 127 mg/dL (75-99)
--- NOTE | 2018-02-28 20:24 | PN ---
PROGRESS NOTE DATE OF SERVICE: 02/28/2018 This 77-year-old gentleman admitted with COPD acute exacerbation and cirrhosis of the liver and ascites, being closely monitored. Patient has significant gait dysfunction, needing significant assistance also. The patient presently resident of [facility] which the family and the patient does not like. No chest pain. No palpitations. No fever. EXAM: Alert and oriented x3. Pulse is 74, blood pressure 150/63, respirations 16, temperature 97.4, pulse ox 94% on 2 L. HEENT: Conjunctivae normal. Oral mucosa moist. Neck is no jugular venous distention. No carotid bruit. No lymph node enlargement. CARDIOVASCULAR: S1, S2. RESPIRATORY: Breath sounds diminished in the bases. A few scattered rhonchi and crackles. ABDOMEN: Soft, obese, nontender. LEGS: No edema. NERVOUS SYSTEM: No focal deficit. LAB STUDIES: WBC 11.7, hemoglobin 10.9, INR 1.3. ASSESSMENT: 1. Chronic obstructive pulmonary disease acute exacerbation with acute purulent tracheobronchitis with possible left lower lobe pneumonia, possibly gram-negative. 2. Possible cirrhosis of the liver and ascites with fluid overload with status post multiple aspirations and paracentesis. 3. Elevated LFTs. 4. Gait dysfunction. 5. Super morbid obesity. 6. Hypokalemia. 7. Coagulopathy secondary to possible cirrhosis of liver. 8. Splenomegaly. 9. Osteomyelitis changes in the thoracic border. 10.Mediastinal lymphadenopathy. Might need further workup per Pulmonary. 11.Hypertension. 12.History of sleep apnea. 13.History of cerebrovascular accident. RECOMMENDATIONS AND DISCUSSION: I recommend to continue current management, continue symptomatic treatment. Continue with bronchodilators. Continue steroids. PT, OT evaluation. We will closely follow with the director of casework and the piece worker. If the patient is deemed unsafe, the patient may need to go to rehab of the patient and family's choice. Otherwise, we will also arrange bronchodilators. Check for home O2. Prognosis guarded. Further recommendations to follow. Nebulizers may be in order. MMODL / IJN: [id number] /
[2018-02-28] MEDS: PRAVASTATIN SODIUM 40 MG TAB PO SCH (20:32)
[2018-03-01] MEDS: methylPREDNISolone SOD SUCCI 40 MG/ML 1 ML VIAL IV SCH ×3 (02:55→13:00)
[2018-03-01 07:02] LABS: Glucose,Whole Blood 138 mg/dL (75-99)
[2018-03-01] MEDS: SYMBICORT 160-4.5 MCG INHALER INHALATION SCH (07:40)
[2018-03-01] MEDS: IPRATROPIUM-ALBUTEROL 3 ML NEB INHALATION SCH ×2 (07:40→11:48)
[2018-03-01 07:46] LABS: Anisocytosis Slight; Basophils % (A) 0 %; Eosinophils # (A) 0.3 k/uL (0-0.7); Eosinophils % (A) 5 %; HCT 34.7 % (39.0-53.0); HGB 10.9 gm/dL (13.0-17.5); Hypochromasia Marked; Lymphocytes # (A) 0.5 k/uL (1.0-4.8); Lymphocytes % (A) 8 %; MCH 28.1 pg (25.0-35.0); MCHC 31.3 g/dL (31.0-37.0); MCV 89.9 fL (80.0-100.0); Mean Platelet Volume 7.4; Monocytes # (A) 0.3 k/uL (0-1.0); Monocytes % (A) 6 %; Neutrophils # (A) 4.7 k/uL (1.3-7.7); Neutrophils % (A) 79 %; Platelet Count 207 k/uL (150-450); RBC 3.86 m/uL (4.30-5.90); RDW 19.3 % (11.5-15.5)
[2018-03-01 07:55] LABS: INR 1.3 (<1.2); Prothrombin Time 12.4 sec (9.0-12.0)
[2018-03-01 08:07] LABS: ALT 24 U/L (21-72); AST 26 U/L (17-59); Albumin 2.4 g/dL (3.5-5.0); Alkaline Phosphatase 272 U/L (38-126); Anion Gap 6 mmol/L; Blood Urea Nitrogen 43 mg/dL (9-20); Calcium 8.6 mg/dL (8.4-10.2); Carbon Dioxide 28 mmol/L (22-30); Chloride 106 mmol/L (98-107); Glucose 133 mg/dL (74-99); Potassium 4.5 mmol/L (3.5-5.1); Sodium 140 mmol/L (137-145); Total Bilirubin 1.1 mg/dL (0.2-1.3); Total Protein 6.3 g/dL (6.3-8.2)
[2018-03-01] MEDS: INSULIN ASPART 100 UNIT/ML 1 ML 10 ML VIAL SQ SCH ×2 (08:23→12:59)
[2018-03-01] MEDS: HEPARIN SODIUM,PORCINE 5,000 UNIT/ML 1 ML VIAL SQ SCH (08:24)
[2018-03-01] MEDS: PANTOPRAZOLE 40 MG TABLET PO SCH (08:24)
[2018-03-01] MEDS: CHOLESTYRAMINE (WITH SUGAR) 4 GM PACKET PO SCH (08:24)
[2018-03-01] MEDS: FUROSEMIDE 10 MG/ML 4 ML VIAL IV SCH (08:25)
[2018-03-01] MEDS: ASPIRIN 81 MG PO SCH (08:25)
[2018-03-01] MEDS: LEVOFLOXACIN 750 MG TAB PO SCH (08:25)
[2018-03-01] MEDS: METOPROLOL TARTRATE 25 MG TAB PO SCH (08:25)
[2018-03-01] MEDS: NIACIN TR 500 MG CAPSULE.ER PO SCH (08:26)
[2018-03-01] MEDS: SPIRONOLACTONE 25 MG TAB PO SCH (08:26)
[2018-03-01 11:19] LABS: Glucose,Whole Blood 127 mg/dL (75-99)
[2018-03-01 12:27] VITALS: BP 125/57; PULSE 68; RESP 18; TEMP 97.9
--- NOTE | 2018-03-01 14:06 | XR ---
EXAMINATION TYPE: XR chest 2V DATE OF EXAM: 03/01/2018 COMPARISON: 02/23/2018 HISTORY: Shortness of breath TECHNIQUE: Frontal and lateral views of the chest are obtained. FINDINGS: Scattered senescent parenchymal changes noted. Mild patchy basilar densities and small effusions. Heart size is stable. Mediastinal structures are stable and grossly unremarkable. No evidence for hilar prominence. Degenerative changes dorsal spine. IMPRESSION: 1. Mild patchy basilar densities and small effusions.
--- NOTE | 2018-03-01 15:37 | P.PN ---
Subjective Progress Note Date: 03/01/18 Principal diagnosis: shortness of breath, multifactorial related to COPD exacerbation, left lower lobe bronchopneumonia, and ascites Shortness of breath, pneumonia, ascites Progress note dated 02/25/2018 This is a 77-year-old male that we saw in the observation unit yesterday for shortness of breath. Without shortness of breath was multifactorial in part related to underlying COPD exacerbation complicated by purulent tracheobronchitis or bronchopneumonia left lower lobe as well as underlying massive ascites. The patient also has a history of cirrhosis/splenomegaly, of unclear etiology, multiple osteoblastic bony lesions, skin cancer, hyperlipidemia, hypertension, recent admission for GI bleed and anemia, sleep apnea syndrome, TIA, and multiple other medical problems and comorbidities. The patient had a large-volume paracentesis abdominis yesterday. More than 7-1/ 2 L was removed. The patient's breathing has improved dramatically. He still does have a cough. Still producing some phlegm. He seems much more comfortable and his belly is much less distended. He is currently being evaluated by gastroenterology for the etiology of his liver failure splenomegaly and massive ascites. on 02/26/2018 patient seen in follow-up on 3 surgical floor. States his breathing is easier, although he gets worse at night. patient underwent paracentesis yesterday, with removal of 7.5 L of fluid. Patient's abdomen still distended, some residual ascitic fluid. currently on 3 L per nasal cannula his pulse ox is 94%, at times she is tachycardic, with a heart rate in the low 100s to 132. Denies any chest pain. no fever or chills. He is down 3 kg since admission. ascitic fluid cultures pending.GI service is following. Lung sounds reveal some faint wheezes. patient continues on nebulized bronchodilators, empiric antibiotics and Symbicort. No chest congestion, no hemoptysis, no chest pain. On 02/28/2018 patient seen in follow-up in 3 surgical floor. Patient states his breathing is improving. Ascites fluid cultures remain negative. Patient is afebrile, denies any worsening shortness of breath or chest pain. Repeat abdominal ultrasound on 02/26/2018 showed small volume abdominal ascites. Not enough to drain. Lung sounds are coarse, with no significant wheezing. Occasional cough, with clear phlegm production. On 03/01/2018 patient seen in follow-up on 3 surgical floor. Breathing much easier, pulse ox is 94%, he is hemodynamically stable, patient is afebrile. Lung sounds positive for minimal crackles at the bases, overall diminished breath sounds, no rhonchi or wheezes noted on today's exam. Chest x-ray was completed today showed just mild patchy basilar densities, and small effusions. His lab work negative for leukocytosis, hemoglobin is 10.9, electrolytes were within normal limits, B1 is 43, creatinine 0.93. He has been diuresed, his bilateral lower extremity edema has improved. Her pathology results have been reviewed, and ascitic fluid cultures remain negative thus far. He remains on oral Levaquin for empiric antibiotic coverage. We'll switch his IV steroids to oral prednisone. Discharge planning is in progress for discharge home today. From pulmonary perspective patient is stable for discharge home today. Follow- up in the pulmonary office within 1-2 weeks. Patient can continue on his maintenance inhalers, including the risks be, Pulmicort, Perforomist nebulized treatments, and pro-air rescue inhaler on a as needed basis. Objective - Vital Signs Vital signs: Vital Signs Temp 97.9 F 03/01/18 12:26 Pulse 68 03/01/18 12:26 Resp 18 03/01/18 12:26 BP 125/57 03/01/18 12:26 Pulse Ox 94 L 03/01/18 12:26 Intake & Output 02/28/18 03/01/18 03/01/18 18:59 06:59 18:59 Intake Total 240 460 Output Total 300 Balance -60 460 Intake: Oral 240 460 Output: Urine 300 Other: Voiding Method Urinal Urinal Urinal # Voids 2 2 3 # Bowel Movements 1 - Exam No acute distress, oriented 3. Nasal O2 in place HEENT examination is grossly unremarkable. Mucous membranes are moist. No oral lesions. Neck supple. Full range of motion. No adenopathy thyromegaly or neck vein distention. Cardiovascular examination reveals regular rhythm rate. S1-S2 normal. No S3 or S4. No discernible murmur noted. Heart sounds are distant. Lungs sounds are coarse no significant wheezing noted.. Breath sounds are diminished throughout. Breath sounds equal bilaterally. Minimal crackles at the bases Abdomen is mildly distended but much less so than yesterday. Bowel sounds are noted. No masses. Extremities are intact. No cyanosis clubbing or edema. Skin is without rash or lesion. Neurologic examination is brief but nonfocal. - Labs CBC & Chem 7: 03/01/18 07:29 03/01/18 07:29 Labs: Abnormal Lab Results - Last 24 Hours (Table) 02/28/18 02/28/18 03/01/18 Range/Units 17:06 20:05 07:01 RBC (4.30-5.90) m/uL Hgb (13.0-17.5) gm/dL Hct (39.0-53.0) % RDW (11.5-15.5) % Lymphocytes # (1.0-4.8) k/uL PT (9.0-12.0) sec INR (<1.2) BUN (9-20) mg/dL Glucose (74-99) mg/dL POC Glucose (mg/dL) 105 H 127 H 138 H (75-99) mg/dL Alkaline Phosphatase (38-126) U/L Albumin (3.5-5.0) g/dL 03/01/18 03/01/18 03/01/18 Range/Units 07:29 07:29 07:29 RBC 3.86 L (4.30-5.90) m/uL Hgb 10.9 L (13.0-17.5) gm/dL Hct 34.7 L (39.0-53.0) % RDW 19.3 H (11.5-15.5) % Lymphocytes # 0.5 L (1.0-4.8) k/uL PT 12.4 H (9.0-12.0) sec INR 1.3 H (<1.2) BUN 43 H (9-20) mg/dL Glucose 133 H (74-99) mg/dL POC Glucose (mg/dL) (75-99) mg/dL Alkaline Phosphatase 272 H (38-126) U/L Albumin 2.4 L (3.5-5.0) g/dL 03/01/18 Range/Units 11:18 RBC (4.30-5.90) m/uL Hgb (13.0-17.5) gm/dL Hct (39.0-53.0) % RDW (11.5-15.5) % Lymphocytes # (1.0-4.8) k/uL PT (9.0-12.0) sec INR (<1.2) BUN (9-20) mg/dL Glucose (74-99) mg/dL POC Glucose (mg/dL) 127 H (75-99) mg/dL Alkaline Phosphatase (38-126) U/L Albumin (3.5-5.0) g/dL Microbiology - Last 24 Hours (Table) 02/24/18 16:00 Anaerobic Culture - Final Ascites Fluid 02/24/18 16:00 Gram Stain - Final Ascites Fluid Body Fluid Culture - Final Assessment and Plan Plan: Shortness of breath, multifactorial, related to a COPD exacerbation complicated by purulent tracheobronchitis as bronchopneumonia left lower lobe, as well as ascites and possible underlying liver disease. Status post large volume paracentesis abdominis on February 24 Hypoxemic respiratory failure as above No evidence of pulmonary embolism by CT angiogram Cirrhosis/splenomegaly and massive ascites Bony thorax osteoblastic changes, rule out metastatic disease History of skin cancer History of hyperlipidemia History of hypertension Recent admission to the hospital for GI bleed and anemia, requiring blood transfusion History of sleep apnea syndrome History of TIA/CVA Multiple other medical problems and comorbidities Plan: Today's chest x-ray has been reviewed, showed bibasilar densities, likely atelectasis, and small pleural effusions. Patient reports his breathing is much easier, he is not requiring supplemental oxygen, afebrile, vital signs are stable. Ascitic fluid cultures remain negative, no fever or chills. From pulmonary perspective patient is stable for discharge home today, on his maintenance inhalers including the vest be, nebulized dilators, including Pulmicort and Perforomist, and pro-air rescue inhaler. Patient will need follow -up with the GI specialist and Dr. Posadas in the pulmonary office. The patient will need to go home on Lasix 40 mg by mouth twice daily, in addition to spironolactone 50 mg daily. I performed a history & physical examination of the patient and discussed their management with my nurse practitioner, Jocelyn Mendez. I reviewed the nurse practitioner's note and agree with the documented findings and plan of care. Lung sounds are positive for minimal crackles. The findings and the impression was discussed with the patient. I attest to the documentation by the nurse practitioner. Time with Patient: Less than 30
[2018-03-02] MEDS ORDERED: predniSONE 20 MG TAB PO SCH (09:00)
--- NOTE | 2018-03-02 12:28 | DS ---
DISCHARGE SUMMARY DATE OF SERVICE: 03/01/2018 FINAL DIAGNOSES: 1. Chronic obstructive pulmonary disease acute exacerbation with acute purulent tracheobronchitis with possible left lower lobe pneumonia possibly gram-negative. 2. Possible cirrhosis of the liver with ascites and fluid overload, status post multiple aspirations and paracentesis. 3. Elevated LFTs. 4. Gait dysfunction. 5. Super morbid obesity. 6. Hypokalemia. 7. Coagulopathy secondary to possible cirrhosis of liver. 8. Splenomegaly. 9. Osteomyelitis changes of the thoracic vertebra previously. 10.Mediastinal lymphadenopathy previously might need workup in outpatient setting per Pulmonary. 11.Hypertension. 12.History of sleep apnea. 13.History of cerebrovascular accident. DISCHARGE DISPOSITION: The patient will be discharged in stable condition with guarded prognosis. Total time 35 minutes. HISTORY OF PRESENT ILLNESS: This 77-year-old gentleman with a past medical history of multiple medical problems as mentioned earlier being followed by Dr. Espinoza in the outpatient setting admitted with multiple symptomatology as mentioned earlier, treated with bronchodilators. Patient also has abdominal ascitic aspiration. The exact etiology of ascites not known. Liver disease was suspected. I have discussed the case with Dr. Espinoza, who will follow the patient in the outpatient setting. On exam, vitals signs are stable. CARDIOVASCULAR: S1, S2 muffled. ABDOMEN: Soft, mild diffuse distention. Mild ascites. NERVOUS SYSTEM: No focal deficit. DISCHARGE ADVICE: 1. Diet is cardiac diet. 2. Activity limited until followup. 3. Follow up with Dr. Espinoza in 2 to 3 days. 4. Follow up with Dr. Posadas as advised. 5. Follow up with Gastroenterology as advised. 6. Home care is advised. MEDICATIONS: 1. ProAir p.r.n. 2. Aspirin 81 mg p.o. b.i.d. 3. Vitamin D3, 2000 daily. 4. Cholestyramine 4 grams daily. 5. Glycopyrrolate as before. 6. Lopressor 25 mg b.i.d. 7. Multivitamins 1 p.o. daily. 8. Niacin 500 mg p.o. daily. 9. Prilosec 20 mg daily. 10.Pravachol 40 mg q.h.s. 11.Dyazide 1 p.o. daily. 12.Coenzyme Q 100 mg p.o. daily. 13.Symbicort 160/4.5 two puffs b.i.d. 14.Lasix 40 mg p.o. b.i.d. 15.DuoNeb q.i.d. and p.r.n. 16.Levaquin 750 mg p.o. daily. 17.Imodium 2 mg q.i.d. 18.Prednisone taper 40 mg daily for 3 days, 30 for 3 days, 20 for 3 days, 10 for 3 days. 19.Aldactone 50 mg p.o. b.i.d. Follow up labs, CBC, BMP and potassium, closely in the outpatient setting. MMODL / IJN: [id number] /
== END 2018-03-01 15:30 | disposition home health service (06) | DRG 190 ==
LOC: EC 20:47 → 1SOBS 02-24 01:09 → OBSVTOIN 02-24 14:58 → 3NMEDONC 02-24 17:05
PROVIDERS: ADMIT Internal Medicine; ATTEND Internal Medicine
PROC: 0W9G3ZX Drainage of Peritoneal Cavity, Percutaneous Approach, Diagnostic (ICD-10-PCS; principal; 2018-02-26)
DX: J44.1 Chronic obstructive pulmonary disease with (acute) exacerbation (principal); J15.6 Pneumonia due to other Gram-negative bacteria; J96.01 Acute respiratory failure with hypoxia; D68.9 Coagulation defect, unspecified; R18.8 Other ascites; Z68.41 Body mass index [BMI] 40.0-44.9, adult; J44.0 Chronic obstructive pulmonary disease with (acute) lower respiratory infection; E66.01 Morbid (severe) obesity due to excess calories; R16.1 Splenomegaly, not elsewhere classified; D64.9 Anemia, unspecified; K72.90 Hepatic failure, unspecified without coma; K74.60 Unspecified cirrhosis of liver; E78.5 Hyperlipidemia, unspecified; G47.33 Obstructive sleep apnea (adult) (pediatric); K21.9 Gastro-esophageal reflux disease without esophagitis; N40.0 Benign prostatic hyperplasia without lower urinary tract symptoms; I71.4 Abdominal aortic aneurysm, without rupture; K57.90 Diverticulosis of intestine, part unspecified, without perforation or abscess without bleeding; R59.0 Localized enlarged lymph nodes; R26.2 Difficulty in walking, not elsewhere classified; I10 Essential (primary) hypertension; R32 Unspecified urinary incontinence; H91.8X1 Other specified hearing loss, right ear; R79.89 Other specified abnormal findings of blood chemistry; R42 Dizziness and giddiness; Z90.49 Acquired absence of other specified parts of digestive tract; Z79.899 Other long term (current) drug therapy; Z79.82 Long term (current) use of aspirin; Z79.51 Long term (current) use of inhaled steroids; Z87.11 Personal history of peptic ulcer disease; Z86.73 Personal history of transient ischemic attack (TIA), and cerebral infarction without residual deficits; Z85.828 Personal history of other malignant neoplasm of skin; Z87.01 Personal history of pneumonia (recurrent); Z87.891 Personal history of nicotine dependence; Z82.61 Family history of arthritis
CPT/HCPCS: 36415; 49083; 71046; 71275; 76705; 80053; 81001; 82042; 82550; 82553; 82945; 83036; 83615; 83880; 84157; 84484; 85025; 85379; 85610; 85730; 87070; 87075; 87205; 88108; 88305; 88341; 88342; 89050; 93005; 93970; 94640; 94760; 99285

== ENCOUNTER 2018-04-16 10:02 | Day surgery (SDC) | payer MEDICARE, OTHER ==
[2018-04-14 14:18] VITALS: BMI 36.9
[~2018-04-16 10:02] MED LIST: LACTATED RINGERS 1,000 ML IV SCH
[2018-04-16] MEDS ORDERED: LIDOCAINE 1% 20 ML VIAL (10MG/ML) FOR IV START INTRADERMA ONE (10:34)
[2018-04-16 10:46] VITALS: RESP 16; TEMP 97.3
[2018-04-16] MEDS ORDERED: PROPOFOL 10 MG/ML 20 ML VIAL IV ONE (11:51)
--- NOTE | 2018-04-16 12:06 | P.PCN ---
Date of Procedure: 04/16/18 Procedure(s) Performed: BRIEF HISTORY: Patient is a 77-year-old, pleasant, male, scheduled for an upper endoscopy as a part of follow-up of duodenal polyp that was noted on recent upper endoscopy 01/2018. Biopsies were benign. In the meantime patient developed new-onset ascites and underwent gradually paracentesis in February 2018 and the ascites fluid was consistent with portal hypertension. He does have history of underlying fatty liver disease and possible cirrhosis. PROCEDURE PERFORMED: Esophagogastroduodenoscopy with multiple biopsies. PREOPERATIVE DIAGNOSIS: Follow-up duodenal polyp noted on upper endoscopy in January 2018. IV sedation per anesthesia. PROCEDURE: After informed consent was obtained, the patient was brought into the endoscopy unit. IV sedation was administered by Anesthesia under continuous monitoring. Initially the Olympus GIF-140 video endoscope was inserted into the mouth. Esophagus intubated without any difficulty. It was gradually advanced into the stomach and duodenum and carefully examined. In the bulb of the duodenum there was a 2.5 cm broad-based polyp with central ulceration identified. Multiple biopsies were done from the polyp. Given the broad base of the polyp was not possible for endoscopic polypectomy. The scope at this time was withdrawn to the stomach, adequately insufflated with air, and upon careful examination, mucosa of the antrum, body appeared normal. There were changes in the cardia and fundus consistent with mild portal hypertensive gastropathy. The scope was then withdrawn into the esophagus. The GE junction was located at 39 cm from the incisors. The esophagus appeared normal. There were no erosions or ulcerations seen and the patient tolerated the procedure well. IMPRESSION: 1. 2.5 cm broad-based polyp in the duodenal bulb with central ulceration status post multiple biopsies to rule out neoplasm. 2. Mild portal hypertensive gastropathy. RECOMMENDATIONS: The findings of this examination were discussed with the patient as well as his family. He was advised to follow with the biopsy results. In between be seen in the office in a week and based the biopsy results and further recommendations will be made..
[2018-04-16 12:36] VITALS: BP 109/60; PULSE 80
== END 2018-04-16 12:51 | disposition home or self-care (01) ==
LOC: ORWHC2ENDO 10:02
PROVIDERS: ATTEND Internal Medicine Gastroenterology
DX: K31.7 Polyp of stomach and duodenum (principal); K76.6 Portal hypertension; K31.89 Other diseases of stomach and duodenum; K76.0 Fatty (change of) liver, not elsewhere classified; E78.5 Hyperlipidemia, unspecified; J44.9 Chronic obstructive pulmonary disease, unspecified; G47.33 Obstructive sleep apnea (adult) (pediatric); Z99.89 Dependence on other enabling machines and devices; I69.398 Other sequelae of cerebral infarction; R42 Dizziness and giddiness; K21.9 Gastro-esophageal reflux disease without esophagitis; Z79.899 Other long term (current) drug therapy
CPT/HCPCS: 88305; 43239; J2704

== ENCOUNTER 2018-04-27 12:34 | Emergency (ER) | payer MEDICARE, OTHER ==
[2018-04-27] MEDS ORDERED: SODIUM CHLORIDE 0.9% 1,000 ML IV STA (13:26)
--- NOTE | 2018-04-27 13:52 | ED ---
GI Bleed HPI - General Chief complaint: GI Bleed Stated complaint: coughing up blood/black stool Time Seen by Provider: 04/27/18 12:52 Source: patient, family, RN notes reviewed, old records reviewed Mode of arrival: wheelchair Limitations: no limitations - History of Present Illness Initial comments: This is a 77-year-old male to the ER for evaluation. Patient having 2 complaints today, nausea and coughing up of blood as well as blood in his stool. Dark stools. Patient also feel lightheaded and dizzy, per believes the patient is looks pale today. Feels lightheaded dizzy. Denies being on blood thinners. No abdominal pain. MD complaint: blood streaked emesis, gross hematemesis, melena, blood streaked stool, other ( also states patient had a nosebleed) -: hour(s) Quality: painless Consistency: constant Improves with: none Worsens with: none Context: other (None) Associated Symptoms: epistaxis, loss of appetite, weakness Treatments Prior to Arrival: none - Related Data Home Medications Medication Instructions Recorded Confirmed Aspirin 81 mg PO BID 11/06/13 04/27/18 Metoprolol Tartrate [Lopressor] 25 mg PO BID 11/06/13 04/27/18 Multivitamin [Men's Multi-Vitamin] 1 tab PO DAILY 11/06/13 04/27/18 Omeprazole [PriLOSEC] 20 mg PO DAILY 11/06/13 04/27/18 Ubidecarenone [Coq-10] 100 mg PO DAILY 11/06/13 04/27/18 Albuterol Sulfate [Proair Hfa] 2 puff INHALATION RT-QID PRN 10/13/17 04/27/18 Niacin 500 mg PO DAILY 10/13/17 04/27/18 Cholecalciferol (Vitamin D3) 2,000 unit PO DAILY 01/20/18 04/27/18 [Vitamin D3] Triamterene-Hctz 37.5-25Mg 1 cap PO DAILY 01/20/18 04/27/18 [Dyazide 37.5-25 Capsule] Atorvastatin Calcium [Lipitor] 20 mg PO HS 04/14/18 04/27/18 Calcium Carbonate/Vitamin D3 1 each PO DAILY 04/14/18 04/27/18 [Calcium 600-Vit D3 400 Caplet] Felodipine ER [Plendil] 5 mg PO DAILY 04/14/18 04/27/18 Spironolactone [Aldactone] 25 mg PO BID 04/14/18 04/27/18 Budesonide [Pulmicort] 0.5 mg INHALATION RT-BID 04/27/18 04/27/18 Formoterol Fumarate [Perforomist] 20 mcg INHALATION RT-BID 04/27/18 04/27/18 Previous Rx's Medication Instructions Recorded Furosemide [Lasix] 40 mg PO BID #60 tablet 03/01/18 Allergies Allergy/AdvReac Type Severity Reaction Status Date / Time No Known Allergies Allergy Verified 04/27/18 13:27 Review of Systems ROS Statement: Those systems with pertinent positive or pertinent negative responses have been documented in the HPI. ROS Other: All systems not noted in ROS Statement are negative. Past Medical History Past Medical History: Cancer, COPD, CVA/TIA, GI Bleed, Hyperlipidemia, Hypertension, Liver Disease, Pneumonia, Sleep Apnea/CPAP/BIPAP Additional Past Medical History / Comment(s): SMALL AAA, TIA, CVA - approx 2014 and has had vertigo/difficulty ambulating, difficulty writing and decreased hearing with R ear since, CATE with Cpap use, skin cancer with removal, unintentional wt loss 100# over past year' "fatty liver", uses depends History of Any Multi-Drug Resistant Organisms: MRSA Date of last positivie culture/infection: "several years ago" per MDRO Source:: [facility] Past Surgical History: Appendectomy, Tonsillectomy Additional Past Surgical History / Comment(s): Skin cancer removal, colonoscopy Past Anesthesia/Blood Transfusion Reactions: No Reported Reaction Past Psychological History: No Psychological Hx Reported Smoking Status: Former smoker - Past Family History Father Family Medical History: No Reported History Mother Family Medical History: Osteoarthritis (OA) General Exam Limitations: no limitations General appearance: alert, in no apparent distress Head exam: Present: atraumatic, normocephalic, normal inspection Eye exam: Present: normal appearance, PERRL, EOMI. Absent: scleral icterus, conjunctival injection, periorbital swelling ENT exam: Present: normal exam, mucous membranes moist Neck exam: Present: normal inspection. Absent: tenderness, meningismus, lymphadenopathy Respiratory exam: Present: normal lung sounds bilaterally. Absent: respiratory distress, wheezes, rales, rhonchi, stridor Cardiovascular Exam: Present: regular rate, normal rhythm, normal heart sounds. Absent: systolic murmur, diastolic murmur, rubs, gallop, clicks GI/Abdominal exam: Present: soft, normal bowel sounds. Absent: distended, tenderness, guarding, rebound, rigid Extremities exam: Present: normal inspection, full ROM, normal capillary refill. Absent: tenderness, pedal edema, joint swelling, calf tenderness Back exam: Present: normal inspection Neurological exam: Present: alert, oriented X3, CN II-XII intact Psychiatric exam: Present: normal affect, normal mood Skin exam: Present: warm, dry, intact, normal color. Absent: rash Course Vital Signs 04/27/18 04/27/18 04/27/18 12:48 15:00 15:30 Temperature 97.7 F Pulse Rate 86 79 81 Respiratory 18 20 18 Rate Blood Pressure 90/57 103/60 107/55 O2 Sat by Pulse 94 L 95 95 Oximetry 04/27/18 04/27/18 16:00 16:30 Temperature Pulse Rate 81 86 Respiratory 18 20 Rate Blood Pressure 98/61 99/77 O2 Sat by Pulse 95 94 L Oximetry - Reevaluation(s) Reevaluation #1: 04/27/18 13:52 Medical records reviewed Reevaluation #2: 04/27/18 16:50 [facility] are agreeable to transfer, Dr. Chaudhary Medical Decision Making - Medical Decision Making 77 male the ER for evaluation of weakness and anorexia weight loss dehydration pain this jaundice, patient with positive pancreatic CVA, will transfer the [facility] for evaluation and treatment - Lab Data Result diagrams: 04/27/18 13:33 04/27/18 13:33 Lab Results 04/27/18 04/27/18 04/27/18 Range/Units 13:33 13:33 13:33 WBC 8.2 (3.8-10.6) k/uL RBC 3.43 L (4.30-5.90) m/uL Hgb 9.5 L (13.0-17.5) gm/dL Hct 29.9 L (39.0-53.0) % MCV 87.2 (80.0-100.0) fL MCH 27.6 (25.0-35.0) pg MCHC 31.6 (31.0-37.0) g/dL RDW 17.9 H (11.5-15.5) % Plt Count 196 (150-450) k/uL Neutrophils % (Manual) 84 % Lymphocytes % (Manual) 2 % Monocytes % (Manual) 6 % Eosinophils % (Manual) 8 % Neutrophils # (Manual) 6.89 (1.3-7.7) k/uL Lymphocytes # (Manual) 0.16 L (1.0-4.8) k/uL Monocytes # (Manual) 0.49 (0-1.0) k/uL Eosinophils # (Manual) 0.66 (0-0.7) k/uL Nucleated RBCs 0 (0-0) /100 WBC Poikilocytosis (manual Present Anisocytosis Slight PT (9.0-12.0) sec INR (<1.2) APTT (22.0-30.0) sec Sodium 135 L (137-145) mmol/L Potassium 4.4 (3.5-5.1) mmol/L Chloride 102 (98-107) mmol/L Carbon Dioxide 24 (22-30) mmol/L Anion Gap 9 mmol/L BUN 45 H (9-20) mg/dL Creatinine 2.00 H (0.66-1.25) mg/dL Est GFR (CKD-EPI)AfAm 36 (>60 ml/min/1.73 sqM) Est GFR (CKD-EPI)NonAf 31 (>60 ml/min/1.73 sqM) Glucose 109 H (74-99) mg/dL Calcium 8.1 L (8.4-10.2) mg/dL Magnesium 2.3 (1.6-2.3) mg/dL Total Bilirubin 4.8 H (0.2-1.3) mg/dL AST 90 H (17-59) U/L ALT 42 (21-72) U/L Alkaline Phosphatase 1166 H (38-126) U/L Total Creatine Kinase <20 L (55-170) U/L CK-MB (CK-2) <0.2 (0.0-2.4) ng/mL CK-MB (CK-2) Rel Index Troponin I <0.012 (0.000-0.034) ng/mL Total Protein 8.1 (6.3-8.2) g/dL Albumin 2.7 L (3.5-5.0) g/dL Lipase 1334 H (23-300) U/L Blood Type Blood Type Recheck Antibody Screen Spec Expiration Date 04/27/18 04/27/18 Range/Units 13:33 13:33 WBC (3.8-10.6) k/uL RBC (4.30-5.90) m/uL Hgb (13.0-17.5) gm/dL Hct (39.0-53.0) % MCV (80.0-100.0) fL MCH (25.0-35.0) pg MCHC (31.0-37.0) g/dL RDW (11.5-15.5) % Plt Count (150-450) k/uL Neutrophils % (Manual) % Lymphocytes % (Manual) % Monocytes % (Manual) % Eosinophils % (Manual) % Neutrophils # (Manual) (1.3-7.7) k/uL Lymphocytes # (Manual) (1.0-4.8) k/uL Monocytes # (Manual) (0-1.0) k/uL Eosinophils # (Manual) (0-0.7) k/uL Nucleated RBCs (0-0) /100 WBC Poikilocytosis (manual Anisocytosis PT 12.3 H (9.0-12.0) sec INR 1.2 H (<1.2) APTT 27.0 (22.0-30.0) sec Sodium (137-145) mmol/L Potassium (3.5-5.1) mmol/L Chloride (98-107) mmol/L Carbon Dioxide (22-30) mmol/L Anion Gap mmol/L BUN (9-20) mg/dL Creatinine (0.66-1.25) mg/dL Est GFR (CKD-EPI)AfAm (>60 ml/min/1.73 sqM) Est GFR (CKD-EPI)NonAf (>60 ml/min/1.73 sqM) Glucose (74-99) mg/dL Calcium (8.4-10.2) mg/dL Magnesium (1.6-2.3) mg/dL Total Bilirubin (0.2-1.3) mg/dL AST (17-59) U/L ALT (21-72) U/L Alkaline Phosphatase (38-126) U/L Total Creatine Kinase (55-170) U/L CK-MB (CK-2) (0.0-2.4) ng/mL CK-MB (CK-2) Rel Index Troponin I (0.000-0.034) ng/mL Total Protein (6.3-8.2) g/dL Albumin (3.5-5.0) g/dL Lipase (23-300) U/L Blood Type O Positive Blood Type Recheck No Antibody Screen NEGATIVE Spec Expiration Date 04/30/2018 - 2333 - Radiology Data Radiology results: report reviewed (Ultrasound abdomen, pelvis gallbladder positive for pancreatic CVA), image reviewed Disposition Clinical Impression: Unintentional weight loss, Elevated liver enzymes, Ascites, Pancreatic cancer Disposition: OTHER INSTITUTION NOT DEFINED Condition: Good Is patient prescribed a controlled substance at d/c from ED?: No Referrals: Kiya Espinoza MD [Primary Care Provider] - 1-2 days - Out of Hospital Transfer - Req. Specs Out of Hospital Transfer - Requested Specifics: Other Non-Acute ([facility])
[2018-04-27 14:03] LABS: Albumin 2.7 g/dL (3.5-5.0); Calcium 8.1 mg/dL (8.4-10.2); INR 1.2 (<1.2); Magnesium 2.3 mg/dL (1.6-2.3); Potassium 4.4 mmol/L (3.5-5.1); Prothrombin Time 12.3 sec (9.0-12.0); Total Bilirubin 4.8 mg/dL (0.2-1.3); Total Protein 8.1 g/dL (6.3-8.2)
[2018-04-27 14:11] LABS: Anisocytosis Slight; HCT 29.9 % (39.0-53.0); HGB 9.5 gm/dL (13.0-17.5); MCH 27.6 pg (25.0-35.0); MCHC 31.6 g/dL (31.0-37.0); MCV 87.2 fL (80.0-100.0); Mean Platelet Volume 7.8; Platelet Count 196 k/uL (150-450); RBC 3.43 m/uL (4.30-5.90); RDW 17.9 % (11.5-15.5); WBC 8.2 k/uL (3.8-10.6)
[2018-04-27 14:13] LABS: Creatine Kinase <20 U/L (55-170)
[2018-04-27 14:25] LABS: Creatine Kinase MB <0.2 ng/mL (0.0-2.4); Troponin I <0.012 ng/mL (0.000-0.034)
[2018-04-27 14:38] LABS: Eosinophils # (M) 0.66 k/uL (0-0.7); Lymphocytes # (M) 0.16 k/uL (1.0-4.8); Monocytes # (M) 0.49 k/uL (0-1.0); Neutrophils # (M) 6.89 k/uL (1.3-7.7); Neutrophils % (M) 84 %; Nucleated Red Blood Cells 0 /100 WBC (0-0); Total Cells Counted 100
[2018-04-27 14:39] LABS: Poikilocytosis (M) Present
--- NOTE | 2018-04-27 16:06 | US ---
EXAMINATION TYPE: US gallbladder DATE OF EXAM: 04/27/2018 COMPARISON: CT CLINICAL HISTORY: Pain. Jaundice, black stool EXAM MEASUREMENTS: Liver Length: 20.1 cm Gallbladder Wall: 0.5 cm CBD: 1.0 cm Right Kidney: 13.5 x 5.4 x 6.3 cm Pancreas: Hypoechoic, vascular, solid lesion at pancreatic body region= 3.4 x 2.5 x 4.2 cm Liver: Enlarged, specular reflections scattered throughout Gallbladder: 1.9 cm stone at neck, wall thickened, pt unable to roll LLD position Evidence for sonographic Mario's sign: Yes CBD: wnl Right Kidney: Cyst mid/lateral= 2.1 x 1.7 x 2.0 cm Small amount of ascites present IMPRESSION: 1. Heterogenous 4.2 cm mass is seen near the pancreatic head and body junction and may represent a pr imary pancreatic neoplasm or surrounding adenopathy as the remainder of the pancreatic parenchyma is poorly visualized and no discrete ductal dilatation is seen. Three-phase enhanced CT or MR abdomen co uld be performed for further assessment. 3. Punctate hyperechoic foci within the liver can be seen in pneumobilia or hepatitis. Correlate with liver function tests and consider CT abdomen is suggested above. 4. Cholelithiasis and gallbladder wall thickening as well as dilatation of the common bile duct. Alth ough acute cholecystitis is a consideration gallbladder wall thickening may also be sequela of the ad jacent ascites and hepatocellular disease and common bile duct dilatation could be on the basis of a pancreatic head mass. 5. Right renal cyst. 6. Partial visualization of at least small volume abdominal ascites.
[2018-04-27] MEDS ORDERED: METOPROLOL TARTRATE 5 MG/5 ML VIAL IVP STA (17:24)
[2018-04-27 19:12] VITALS: BP 108/64; PULSE 88; RESP 20; TEMP 98
== END 2018-04-27 19:30 | disposition short-term general hospital (02) ==
LOC: EC 12:34
DX: C25.9 Malignant neoplasm of pancreas, unspecified (principal); R18.8 Other ascites; R74.8 Abnormal levels of other serum enzymes; E86.0 Dehydration; R53.1 Weakness; R04.0 Epistaxis; K92.0 Hematemesis; K92.1 Melena; R42 Dizziness and giddiness; E78.5 Hyperlipidemia, unspecified; I10 Essential (primary) hypertension; J44.9 Chronic obstructive pulmonary disease, unspecified; I69.898 Other sequelae of other cerebrovascular disease; R26.2 Difficulty in walking, not elsewhere classified; F81.81 Disorder of written expression; H91.91 Unspecified hearing loss, right ear; G47.33 Obstructive sleep apnea (adult) (pediatric); Z87.891 Personal history of nicotine dependence; Z79.51 Long term (current) use of inhaled steroids; Z79.82 Long term (current) use of aspirin; Z79.899 Other long term (current) drug therapy; Z99.89 Dependence on other enabling machines and devices; Z87.19 Personal history of other diseases of the digestive system; Z85.828 Personal history of other malignant neoplasm of skin; Z98.890 Other specified postprocedural states; Z86.14 Personal history of Methicillin resistant Staphylococcus aureus infection; Z90.49 Acquired absence of other specified parts of digestive tract; Z90.89 Acquired absence of other organs
CPT/HCPCS: 36415; 76705; 80053; 82550; 82553; 83690; 83735; 84484; 85025; 85610; 85730; 86850; 86900; 86901; 93005; 96360; 99285